=== PATIENT | male | born 1975 | race Hispanic/Latino ===

== ENCOUNTER 2019-01-16 04:55 | Emergency (ER) | payer BC ==
[2019-01-16] MEDS ORDERED: ACETAMINOPHEN 500 MG TAB ONE (06:29)
[2019-01-16] MEDS ORDERED: IBUPROFEN 200 MG TAB PO ONE (06:29)
[2019-01-16] MEDS ORDERED: IBUPROFEN 400 MG TAB ONE (06:29)
--- NOTE | 2019-01-16 07:14 | ER ---
Nurse's Notes [facility] Name: Jose Carlos Trammell Age: 43 yrs Sex: Male : 1975 Arrival Date: 01/16/2019 Time: 04:58 Bed 6 Private MD: Diagnosis: Acute Right Hip pain Presentation: 01/16 05:10 Presenting complaint: Patient states: 2 days ago while at work I pushed heavy objects rr5 and started to feel pain like a cramps to my right leg. it getting worse tonight. 05:10 Transition of care: patient was not received from another setting of care. Onset of rr5 symptoms was January 14, 2019. Risk Assessment: Do you want to hurt yourself or someone else? Patient reports no desire to harm self or others. Initial Sepsis Screen: Does the patient meet any 2 criteria? No. Patient's initial sepsis screen is negative. Does the patient have a suspected source of infection? No. Patient's initial sepsis screen is negative. Care prior to arrival: None. 05:10 Method Of Arrival: Ambulatory rr5 05:10 Acuity: EDILMA 4 rr5 Historical: - Allergies: 05:10 No Known Allergies; rr5 - Home Meds: 05:10 metformin 1,000 mg Oral tab 1 tab 2 times per day [Active]; rr5 - PMHx: 05:10 Diabetes - NIDDM; rr5 - PSHx: 05:10 None; rr5 - Immunization history:: Adult Immunizations up to date. - Social history:: Smoking status: Patient uses tobacco products, 3 sticks per day. - Ebola Screening: : Patient negative for fever greater than or equal to 101.5 degrees Fahrenheit, and additional compatible Ebola Virus Disease symptoms Patient denies exposure to infectious person Patient denies travel to an Ebola-affected area in the 21 days before illness onset. - Family history:: not pertinent. - Hospitalizations: : No recent hospitalization is reported. Screenin:10 Abuse screen: Denies threats or abuse. Denies injuries from another. Nutritional rr5 screening: No deficits noted. Tuberculosis screening: No symptoms or risk factors identified. Fall Risk None identified. Total Grewal Fall Scale indicates No Risk (0-24 pts). Assessment: 05:10 General: Appears in no apparent distress. comfortable, Behavior is calm, cooperative, rr5 appropriate for age. Pain: Complains of pain in right leg Pain does not radiate. Pain currently is 10 out of 10 on a pain scale. Quality of pain is described as crampy, Pain began gradually, Is intermittent. Neuro: Level of Consciousness is awake, alert, obeys commands, Oriented to person, place, time, situation, Appropriate for age. Cardiovascular: Capillary refill < 3 seconds Patient's skin is warm and dry. Respiratory: Airway is patent Respiratory effort is even, unlabored, Respiratory pattern is regular, symmetrical. GI: No signs and/or symptoms were reported involving the gastrointestinal system. : No signs and/or symptoms were reported regarding the genitourinary system. EENT: No signs and/or symptoms were reported regarding the EENT system. Derm: Skin is intact, Skin temperature is warm. Musculoskeletal: Circulation, motion, and sensation intact. Capillary refill < 3 seconds, Range of motion: intact in all extremities, Reports pain in right leg. 06:40 Reassessment: Patient appears in no apparent distress at this time. Patient is alert, rr5 oriented x 3, equal unlabored respirations, skin warm/dry/pink. asleep on bed comfortably. no complaints made awaiting for result. Vital Signs: 05:10 BP 129 / 83; Pulse 75; Resp 17; Temp 98.2; Pulse Ox 100% ; Weight 117.93 kg; Height 5 rr5 ft. 11 in. (180.34 cm); Pain 10/10; 06:30 BP 121 / 76; Pulse 70; Resp 17; Pulse Ox 99% on R/A; rr5 05:10 Body Mass Index 36.26 (117.93 kg, 180.34 cm) rr5 ED Course: 04:58 Patient arrived in ED. do 05:10 Arm band placed on. rr5 05:11 Oh Quintana, JEREMIAS is Primary Nurse. rr5 05:15 Triage completed. rr5 05:15 Patient has correct armband on for positive identification. Bed in low position. Call rr5 light in reach. 05:49 Miller Tran MD is Attending Physician. wa 06:34 X-ray completed. Patient tolerated procedure well. kw 06:48 Hip Right 2 View XRAY In Process Unspecified. EDMS 07:06 Primary Nurse role handed off by Oh Quintana, RN sg 07:06 Reveles, Joshua, RN is Primary Nurse. sg Administered Medications: 06:18 Drug: Motrin 600 mg Route: PO; rr5 07:08 Follow up: Response: No adverse reaction rr5 06:18 Drug: Tylenol 1000 mg Route: PO; rr5 07:08 Follow up: Response: No adverse reaction rr5 Outcome: 07:14 Discharge ordered by . [email or web address] 07:28 Patient left the ED. Signatures: Dispatcher [employer] EDMS Joshua Reveles RN RN sg Smirch, Shelby, RN RN Rosita Craft Danielle do Appiah, William, MD MD wa Roque, Raymond RN RN rr5
--- NOTE | 2019-01-16 07:15 | EDPHYS ---
Physician Documentation [facility] Name: Jose Carlos Trammell Age: 43 yrs Sex: Male : 1975 Arrival Date: 01/16/2019 Time: 04:58 Bed 6 Private MD: ED Physician Miller Tran HPI: 01/16 07:16 This 43 yrs old Male presents to ER via Ambulatory with complaints of Leg Pain.wa 07:16 The patient presents with pain, that is acute. The complaints affect the right hip. wa Context: The problem was sustained at work, resulted from tension while pulling a heavy object, the patient can fully bear weight, the patient is able to ambulate, with mild difficulty, Problem is a result from a previous injury: No. Onset: The symptoms/episode began/occurred 2 day(s) ago. Modifying factors: The symptoms are alleviated by nothing. the symptoms are aggravated by movement, weight bearing. Associated signs and symptoms: The patient has no apparent associated signs or symptoms. Treatment prior to arrival includes: no previous treatment. Severity of symptoms: At their worst the symptoms were moderate, in the emergency department the symptoms are unchanged. The patient has not experienced similar symptoms in the past. The patient has not recently seen a physician. Historical: - Allergies: 05:10 No Known Allergies; rr5 - Home Meds: 05:10 metformin 1,000 mg Oral tab 1 tab 2 times per day [Active]; rr5 - PMHx: 05:10 Diabetes - NIDDM; rr5 - PSHx: 05:10 None; rr5 - Immunization history:: Adult Immunizations up to date. - Social history:: Smoking status: Patient uses tobacco products, 3 sticks per day. - Ebola Screening: : Patient negative for fever greater than or equal to 101.5 degrees Fahrenheit, and additional compatible Ebola Virus Disease symptoms Patient denies exposure to infectious person Patient denies travel to an Ebola-affected area in the 21 days before illness onset. - Family history:: not pertinent. - Hospitalizations: : No recent hospitalization is reported. ROS: 07:17 Constitutional: Negative for fever, chills, and weight loss, Eyes: Negative for injury, wa pain, redness, and discharge, ENT: Negative for injury, pain, and discharge, Neck: Negative for injury, pain, and swelling, Cardiovascular: Negative for chest pain, palpitations, and edema, Respiratory: Negative for shortness of breath, cough, wheezing, and pleuritic chest pain, Abdomen/GI: Negative for abdominal pain, nausea, vomiting, diarrhea, and constipation, Back: Negative for injury and pain, : Negative for injury, bleeding, discharge, and swelling, Skin: Negative for injury, rash, and discoloration, Neuro: Negative for headache, weakness, numbness, tingling, and seizure, Psych: Negative for depression, anxiety, suicide ideation, homicidal ideation, and hallucinations. 07:17 MS/extremity: Positive for pain, tenderness, of the right hip. 07:17 All other systems are negative. Exam: 07:18 Constitutional: This is a well developed, well nourished patient who is awake, alert, wa and in no acute distress. Head/Face: Normocephalic, atraumatic. Eyes: Pupils equal round and reactive to light, extra-ocular motions intact. Lids and lashes normal. Conjunctiva and sclera are non-icteric and not injected. Cornea within normal limits. Periorbital areas with no swelling, redness, or edema. ENT: Nares patent. No nasal discharge, no septal abnormalities noted. Tympanic membranes are normal and external auditory canals are clear. Oropharynx with no redness, swelling, or masses, exudates, or evidence of obstruction, uvula midline. Mucous membranes moist. Neck: Trachea midline, no thyromegaly or masses palpated, and no cervical lymphadenopathy. Supple, full range of motion without nuchal rigidity, or vertebral point tenderness. No Meningismus. Chest/axilla: Normal chest wall appearance and motion. Nontender with no deformity. No lesions are appreciated. Cardiovascular: Regular rate and rhythm with a normal S1 and S2. No gallops, murmurs, or rubs. Normal PMI, no JVD. No pulse deficits. Respiratory: Lungs have equal breath sounds bilaterally, clear to auscultation and percussion. No rales, rhonchi or wheezes noted. No increased work of breathing, no retractions or nasal flaring. Abdomen/GI: Soft, non-tender, with normal bowel sounds. No distension or tympany. No guarding or rebound. No evidence of tenderness throughout. Back: No spinal tenderness. No costovertebral tenderness. Full range of motion. Skin: Warm, dry with normal turgor. Normal color with no rashes, no lesions, and no evidence of cellulitis. Neuro: Awake and alert, GCS 15, oriented to person, place, time, and situation. Cranial nerves II-XII grossly intact. Motor strength 5/5 in all extremities. Sensory grossly intact. Cerebellar exam normal. Normal gait. Psych: Awake, alert, with orientation to person, place and time. Behavior, mood, and affect are within normal limits. 07:18 Musculoskeletal/extremity: Extremities: grossly normal except: noted in the right hip: pain, tenderness, tenderness. 07:19 Musculoskeletal/extremity: SLR negative. ma Vital Signs: 05:10 BP 129 / 83; Pulse 75; Resp 17; Temp 98.2; Pulse Ox 100% ; Weight 117.93 kg; Height 5 rr5 ft. 11 in. (180.34 cm); Pain 10/10; 06:30 BP 121 / 76; Pulse 70; Resp 17; Pulse Ox 99% on R/A; rr5 05:10 Body Mass Index 36.26 (117.93 kg, 180.34 cm) rr5 MDM: 05:49 Patient medically screened. ma 07:18 Differential diagnosis: contusion, tendonitis. Data reviewed: vital signs, nurses wa notes. Test interpretation: by ED physician or midlevel provider: noted mild DJD on R hip Xray. 01/16 06:09 Order name: Hip Right 2 View XRAY ma Administered Medications: 06:18 Drug: Motrin 600 mg Route: PO; rr5 07:08 Follow up: Response: No adverse reaction rr5 06:18 Drug: Tylenol 1000 mg Route: PO; rr5 07:08 Follow up: Response: No adverse reaction rr5 Disposition: 01/16/19 07:14 Discharged to Home. Impression: Acute Right Hip pain. - Condition is Stable. - Prescriptions for Ibuprofen 600 mg Oral Tablet - take 1 tablet by ORAL route every 8 hours As needed take with food; 30 tablet. Valium 5 mg Oral Tablet - take 1 tablet by ORAL route At bedtime As needed; 3 tablet. - Work release form, Medication Reconciliation Form, Thank You Letter, Antibiotic Education, Prescription Opioid Use form. - Follow up: Private Physician; When: 2 - 3 days; Reason: Recheck today's complaints. - Problem is new. - Symptoms have improved. - Notes: gtake medication as prescribed. follow up iwth your doctor Signatures: Dispatcher [employer] Neeta Mcdaniel RN RN ss Miller Tran MD MD wa Roque, Raymond RN RN rr5 Corrections: (The following items were deleted from the chart) 07:28 07:14 01/16/2019 07:14 Discharged to Home. Impression: Acute Right Hip pain. Condition ss is Stable. Forms are Medication Reconciliation Form, Thank You Letter, Antibiotic Education, Prescription Opioid Use. Follow up: Private Physician; When: 2 - 3 days; Reason: Recheck today's complaints. Problem is new. Symptoms have improved. wa
[2019-01-16 07:43] VITALS: TEMP 98.2
[2019-01-16 07:44] VITALS: BP 121/76; O2SAT 99
--- NOTE | 2019-01-16 08:48 | RAD REPORT ---
EXAM DESCRIPTION: RAD - Hip Right 2 View - 01/16/2019 6:47 am CLINICAL HISTORY: PAIN COMPARISON: No comparisons FINDINGS: Mild osteoarthritis affects the right hip. No fracture, dislocation or AVN.
== END 2019-01-16 07:28 | disposition home or self-care (01) ==
LOC: ER 04:55
DX: M25.551 Pain in right hip (principal); E11.9 Type 2 diabetes mellitus without complications; Z72.0 Tobacco use
CPT/HCPCS: 99283

== ENCOUNTER 2021-06-30 09:44 | Emergency (ER) | payer BC, SELFPAY ==
[2021-06-30] MEDS ORDERED: NA CHLORIDE 0.9% 1,000 ML ONE (10:50)
[2021-06-30] MEDS ORDERED: KETOROLAC 30 MG/ML INJ ONE (10:50)
[2021-06-30 11:03] LABS: Absolute Lymphocytes (CBC) 3.1 K/uL (0.7-4.9); Basophils % 0.4 % (0-1.3); Hematocrit 44.7 % (39.6-49.0); Lymphocytes % 35.1 % (15.3-44.8); MPV 9.9 fL (7.6-11.3); RBC Red Blood Cell Count 5.03 M/uL (4.33-5.43)
--- NOTE | 2021-06-30 11:05 | RAD REPORT ---
EXAM DESCRIPTION: CTAbdomen Pelvis W Contrast - 06/30/2021 10:49 am CLINICAL HISTORY: Abdominal pain. ABD PAIN COMPARISON: No comparisons TECHNIQUE: Biphasic CT imaging of the abdomen and pelvis was performed with 100 ml non-ionic IV cont rast. All CT scans are performed using dose optimization technique as appropriate and may include automated exposure control or mA/KV adjustment according to patient size. FINDINGS: The lung bases are clear. The liver, spleen, pancreas, adrenal glands and kidneys are within normal limits. No bowel obstruction, free air, free fluid or abscess. The appendix is normal. No evidence of signi ficant lymphadenopathy. No suspicious bony findings. IMPRESSION: No acute intra-abdominal or pelvic finding.
[2021-06-30 11:11] LABS: ALT/SGPT 25 U/L (12-78); AST/SGOT 12 U/L (15-37); Albumin 3.3 g/dL (3.4-5.0); Alkaline Phosphatase 64 U/L (45-117); BUN Blood Urea Nitrogen 14 mg/dL (7-18); Bicarbonate 26 mmol/L (21-32); Bilirubin Direct 0.1 mg/dL (0-0.2); Bilirubin Total 0.4 mg/dL (0.2-1.0); Glucose Level 334 mg/dL (74-106); Lipase 95 U/L (73-393); Protein, Total 7.4 g/dL (6.4-8.2); Sodium Level 139 mmol/L (136-145)
--- NOTE | 2021-06-30 11:21 | RAD REPORT ---
EXAM DESCRIPTION: US - Abdomen Exam Limited - 06/30/2021 11:12 am CLINICAL HISTORY: ABD PAIN COMPARISON: Abdomen Pelvis W Contrast dated 06/30/2021 FINDINGS: The gallbladder is quite contracted and somewhat difficult to fully assess. Grossly no sto ne or wall thickening evident. The common bile duct is normal measuring 5 mm. The liver demonstrates mild fatty liver. IMPRESSION: Significant gallbladder contraction is present, limiting study. No cholecystitis findin gs. Mild fatty liver.
--- NOTE | 2021-06-30 11:39 | EDPHYS ---
Physician Documentation [facility] Name: Jose Carlos Tramemll Age: 46 yrs Sex: Male : 1975 Arrival Date: 06/30/2021 Time: 09:46 Bed 9 Private MD: Isatu Mayo ED Physician Wilbetr Hernandez HPI: 06/30 11:36 This 46 yrs old Male presents to ER via Ambulatory with complaints of kb Abdominal Pain, Chest Pain, Back Pain. 11:36 The patient presents with abdominal pain. Onset: The symptoms/episode began/occurred kb last night. The symptoms do not radiate. Associated signs and symptoms: none. The symptoms are described as constant. Modifying factors: The symptoms are alleviated by nothing, the symptoms are aggravated by nothing. Severity of pain: At its worst the pain was moderate in the emergency department the pain is unchanged. The patient has not experienced similar symptoms in the past. The patient has not recently seen a physician. RUQ pain that started at 0100 and LLQ pain that started 2 weeks ago. . Historical: - Allergies: 10:29 No Known Allergies; vg1 - Home Meds: 10:29 metformin 1,000 mg Oral tab 1 tab 2 times per day [Active]; vg1 - PMHx: 10:29 Diabetes - NIDDM; vg1 - Immunization history:: Client reports having NOT received the Covid vaccine. - Social history:: Smoking status: Patient reports the use of cigarette tobacco products, smokes two packs cigarettes per day. ROS: 11:36 Constitutional: Negative for fever, chills, and weight loss. kb 11:36 Abdomen/GI: Positive for abdominal pain, Negative for nausea, vomiting, and diarrhea. 11:36 All other systems are negative. Exam: 11:36 Constitutional: This is a well developed, well nourished patient who is awake, alert, kb and in no acute distress. Head/Face: Normocephalic, atraumatic. ENT: Moist Mucous membranes Respiratory: Respirations even and unlabored. No increased work of breathing. Talking in full sentences Skin: Warm, dry with normal turgor. Normal color. MS/ Extremity: Pulses equal, no cyanosis. Neurovascular intact. Full, normal range of motion. Neuro: Awake and alert, GCS 15, oriented to person, place, time, and situation. Moves all extremities. Normal gait. Psych: Awake, alert, with orientation to person, place and time. Behavior, mood, and affect are within normal limits. 11:36 Abdomen/GI: Inspection: abdomen appears normal, Bowel sounds: normal, Palpation: soft, in all quadrants, mild abdominal tenderness, in the right upper quadrant, moderate abdominal tenderness, in the left upper quadrant. Vital Signs: 10:26 BP 142 / 81; Pulse 85; Resp 18; Temp 98.1; Pulse Ox 100% ; Weight 108.86 kg; Height 5 vg1 ft. 11 in. (180.34 cm); Pain 10/10; 12:16 BP 139 / 76; Pulse 81; Resp 18; Pulse Ox 100% on R/A; ld1 10:26 Body Mass Index 33.47 (108.86 kg, 180.34 cm) vg1 MDM: 10:18 Patient medically screened. kb 11:26 Data reviewed: vital signs, nurses notes. Data interpreted: Pulse oximetry: on room air kb is 100 %. Interpretation: normal. Counseling: I had a detailed discussion with the patient and/or guardian regarding: the historical points, exam findings, and any diagnostic results supporting the discharge/admit diagnosis, lab results, radiology results, the need for outpatient follow up, a family practitioner, to return to the emergency department if symptoms worsen or persist or if there are any questions or concerns that arise at home. 06/30 10:18 Order name: Basic Metabolic Panel; Complete Time: 11:19 kb 06/30 10:18 Order name: CBC with Diff; Complete Time: 11:05 kb 06/30 10:18 Order name: US Abdomen Limited; Complete Time: 11:26 kb 06/30 10:18 Order name: Hepatic Function; Complete Time: 11:19 kb 06/30 10:18 Order name: Lipase; Complete Time: 11:19 kb 06/30 11:27 Order name: CREATININE WHOLE BLOOD; Complete Time: 11:28 EDMS 06/30 10:18 Order name: IV Saline Lock; Complete Time: 10:25 kb 06/30 10:18 Order name: Labs collected and sent; Complete Time: 10:25 kb 06/30 10:28 Order name: CT Abd/Pelvis - IV Contrast Only; Complete Time: 11:08 kb Administered Medications: 11:16 Drug: NS 0.9% 1000 ml Route: IV; Rate: 1000 ml; Site: right antecubital; iw 12:10 Follow up: IV Status: Completed infusion iw 11:16 Drug: Ketorolac 15 mg Route: IVP; Site: right antecubital; iw 11:30 Follow up: Response: No adverse reaction iw Disposition: 07/01 06:54 Co-signature as Attending Physician, Wilbert Hernandez MD I agree with the assessment and emilia plan of care. Disposition Summary: 06/30/21 11:38 Discharge Ordered Location: Home kb Condition: Stable kb Diagnosis - Upper abdominal pain, unspecified kb Followup: kb - With: Emergency Department - When: As needed - Reason: Worsening of condition Followup: kb - With: Private Physician - When: 2 - 3 days - Reason: Recheck today's complaints, Continuance of care, Re-evaluation by your physician Discharge Instructions: - Discharge Summary Sheet kb - Abdominal Pain, Adult, [id number] kb Forms: - Medication Reconciliation Form kb - Thank You Letter kb - Antibiotic Education kb - Prescription Opioid Use kb - Work release form bd Prescriptions: - Zofran 4 mg Oral Tablet - take 1 tablet by ORAL route every 6 hours As needed; 20 tablet; Refills: 0, kb Product Selection Permitted - Diclofenac Sodium 75 mg Oral tablet,delayed release (DR/EC) - take 1 tablet by ORAL route 2 times per day As needed; 30 tablet; Refills: 0, kb Product Selection Permitted Signatures: Dispatcher [employer] Noris Fuller, HOLLEY-C HOLLEY-Wilbert Hussein MD MD cha Williams, Irene, RN Sharlene John RN RN vg1
--- NOTE | 2021-06-30 11:39 | ER ---
Nurse's Notes [facility] Name: Jose Carlos Trammell Age: 46 yrs Sex: Male : 1975 Arrival Date: 06/30/2021 Time: 09:46 Bed 9 Private MD: Isatu Mayo Diagnosis: Upper abdominal pain, unspecified Presentation: 06/30 10:26 Chief complaint: Patient states: RUQ pain began today and LUQ pain began x 2 weeks ago. vg1 Denies NVD, states pain is sharp. Coronavirus screen: Vaccine status: Patient reports being unvaccinated. Ebola Screen: Patient negative for fever greater than or equal to 101.5 degrees Fahrenheit, and additional compatible Ebola Virus Disease symptoms. Initial Sepsis Screen: Does the patient meet any 2 criteria? No. Patient's initial sepsis screen is negative. Does the patient have a suspected source of infection? No. Patient's initial sepsis screen is negative. Risk Assessment: Do you want to hurt yourself or someone else? Patient reports no desire to harm self or others. Onset of symptoms was June 30, 2021. 10:26 Method Of Arrival: Ambulatory vg1 10:26 Acuity: EDILMA 3 vg1 Triage Assessment: 10:29 General: Appears in no apparent distress. uncomfortable, Behavior is calm, cooperative. vg1 Pain: Complains of pain in right upper quadrant and left upper quadrant Pain currently is 10 out of 10 on a pain scale. GI: Patient currently denies diarrhea, nausea, vomiting. Historical: - Allergies: 10:29 No Known Allergies; vg1 - Home Meds: 10: metformin 1,000 mg Oral tab 1 tab 2 times per day [Active]; vg1 - PMHx: 10:29 Diabetes - NIDDM; vg1 - Immunization history:: Client reports having NOT received the Covid vaccine. - Social history:: Smoking status: Patient reports the use of cigarette tobacco products, smokes two packs cigarettes per day. Screenin:08 Abuse screen: Denies threats or abuse. Denies injuries from another. Nutritional iw screening: No deficits noted. Tuberculosis screening: No symptoms or risk factors identified. Fall Risk None identified. Assessment: 10:45 General: Appears in no apparent distress. Behavior is calm, cooperative. Pain: iw Complains of pain in left upper quadrant and right upper quadrant. Neuro: Level of Consciousness is awake, alert, obeys commands, Oriented to person, place, time, situation, Moves all extremities. Full function. Cardiovascular: Patient's skin is warm and dry. Respiratory: Respiratory effort is even, unlabored, Respiratory pattern is regular, symmetrical. GI: Bowel sounds present X 4 quads. Abd is soft X 4 quads Reports upper abdominal pain, nausea. Derm: Skin is intact, is healthy with good turgor. Musculoskeletal: Range of motion: intact in all extremities. 12:16 Reassessment: Patient appears in no apparent distress at this time. No changes from ld1 previously documented assessment. Patient and/or family updated on plan of care and expected duration. Pain level reassessed. Patient is alert, oriented x 3, equal unlabored respirations, skin warm/dry/pink. Vital Signs: 10:26 BP 142 / 81; Pulse 85; Resp 18; Temp 98.1; Pulse Ox 100% ; Weight 108.86 kg; Height 5 vg1 ft. 11 in. (180.34 cm); Pain 10/10; 12:16 BP 139 / 76; Pulse 81; Resp 18; Pulse Ox 100% on R/A; ld1 10:26 Body Mass Index 33.47 (108.86 kg, 180.34 cm) vg1 ED Course: 09:46 Patient arrived in ED. am2 09:46 Isatu Mayo is Private Physician. am2 10:18 Noris Coreas FNP-C is PSYCHIATRICP. kb 10:18 Wilbert Hernandez MD is Attending Physician. kb 10:25 Initial lab(s) drawn, by ED staff, sent to lab. Inserted saline lock: 20 gauge in right vg1 antecubital area, using aseptic technique. ,using aseptic technique. completed by Beatrice BROWN. 10:28 Otilia Garcia, RN is Primary Nurse. iw 10:29 Triage completed. vg1 10:29 Arm band placed on. vg1 10:49 CT Abd/Pelvis - IV Contrast Only In Process Unspecified. EDMS 11:12 US Abdomen Limited In Process Unspecified. EDMS 12:17 No provider procedures requiring assistance completed. IV discontinued, intact, ld1 bleeding controlled, No redness/swelling at site. 12:17 Patient has correct armband on for positive identification. Placed in gown. Bed in low ld1 position. Call light in reach. Side rails up X2. Pulse ox on. NIBP on. Door closed. Noise minimized. Warm blanket given. Administered Medications: 11:16 Drug: NS 0.9% 1000 ml Route: IV; Rate: 1000 ml; Site: right antecubital; iw 12:10 Follow up: IV Status: Completed infusion iw 11:16 Drug: Ketorolac 15 mg Route: IVP; Site: right antecubital; iw 11:30 Follow up: Response: No adverse reaction iw Outcome: 11:38 Discharge ordered by MD. bowser 12:17 Discharged to home ambulatory. ld1 12:17 Condition: stable 12:17 Discharge instructions given to patient, Instructed on discharge instructions, follow up and referral plans. medication usage, Demonstrated understanding of instructions, follow-up care, medications, Prescriptions given X 2. 12:17 Patient left the ED. ld1 Signatures: Dispatcher [employer] EDMS Noris Coreas, HOLLEY-Reggie BABB-Otilia Flannery RN RN Charley Camara am2 Sharlene Mesa, RN RN vg1 Mayda Castro RN RN ld1
[2021-06-30 12:26] VITALS: TEMP 98.1; O2SAT 100
[2021-06-30 12:28] VITALS: BP 139/76
== END 2021-06-30 12:17 | disposition home or self-care (01) ==
LOC: ER 09:44
DX: R10.11 Right upper quadrant pain (principal); E11.9 Type 2 diabetes mellitus without complications; F17.210 Nicotine dependence, cigarettes, uncomplicated
CPT/HCPCS: 36415; 74177; 76705; 80048; 80076; 82565; 83690; 85025; 96361; 96374; 99284; J7030; Q9967

== ENCOUNTER 2023-03-21 13:20 | Emergency (ER) | payer OTHER, SELFPAY ==
--- OUTSIDE RECORDS SUMMARY | 2023-03-21 13:23 | XMS REPORT | Continuity of Care Document ---
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 Allergies, Adverse Reactions, Alerts This patient has no known allergies or adverse reactions. Medications This patient has no known medications. Procedures This patient has no known procedures. Encounters Start End Encounter Admission Attending Care Care Encounter Source Date/Time Date/Time Type Type Clinicians Facility Department ID 2023-03-18 2023-03-18 Outpatient KISHA HENRY [id number] Kisha 10:00:00 10:00:00 TONI Seybol d 2023-03-09 2023-03-09 Outpatient KISHA HENRY [id number] Kisha 00:00:00 00:00:00 TONI Seybol d 2023-03-08 2023-03-08 Outpatient LAB90 KISHA BEARD [id number] Kisha 11:10:00 11:10:00 Seybol d 2023-03-08 2023-03-08 Outpatient KISHA HENRY [id number] Kisha 10:00:00 10:00:00 TONI Seybol d 2023-03-04 2023-03-04 Outpatient KISHA HENRY [id number] Kisha 16:30:00 16:30:00 TONI Seybol d 2023-03-04 2023-03-04 Outpatient KISHA HENRY [id number] Kisha 14:30:00 14:30:00 TONI francois Results This patient has no known results.
--- NOTE | 2023-03-21 13:56 | ER ---
Nurse's Notes [facility] Name: Jose Carlos Trammell Age: 47 yrs Sex: Male : 1975 Arrival Date: 03/21/2023 Time: 13:20 Bed 4 Private MD: Diagnosis: Cellulitis of head [any part, except face] Presentation: 03/21 13:35 Chief complaint: Patient states: that he had what he thought was a pimple to the back cm10 of his head and his popped it. Pt states that this morning he woke up and it is more red and swollen. Coronavirus screen: Vaccine status: Patient reports being unvaccinated. Ebola Screen: Patient denies travel to an Ebola-affected area in the 21 days before illness onset. No symptoms or risks identified at this time. Initial Sepsis Screen: Does the patient meet any 2 criteria? No. Patient's initial sepsis screen is negative. Does the patient have a suspected source of infection? No. Patient's initial sepsis screen is negative. Risk Assessment: Do you want to hurt yourself or someone else? Patient reports no desire to harm self or others. Onset of symptoms was March 21, 2023. 13:35 Method Of Arrival: Ambulatory cm10 13:35 Acuity: EDILMA 4 cm10 Historical: - Allergies: 13:36 No Known Allergies; cm10 - Home Meds: 13:36 metformin 1,000 mg Oral tab 1 tab 2 times per day [Active]; cm10 - PMHx: 13:36 Diabetes - NIDDM; cm10 - Immunization history:: Adult Immunizations unknown. - Social history:: Smoking status: Patient reports the use of cigarette tobacco products, smokes one-half pack cigarettes per day. Screenin:32 [facility] ED Fall Risk Assessment (Adult) History of falling in the last 3 months, ph including since admission No falls in past 3 months (0 pts) Confusion or Disorientation No (0 pts) Intoxicated or Sedated No (0 pts) Impaired Gait No (0 pts) Mobility Assist Device Used No (0 pt) Altered Elimination No (0 pt) Score/Fall Risk Level 0 - 2 = Low Risk Oriented to surroundings, Maintained a safe environment, Hourly rounding (assess needs \T\ fall precautionary measures) done. Abuse screen: Denies threats or abuse. Denies injuries from another. Nutritional screening: No deficits noted. Tuberculosis screening: No symptoms or risk factors identified. Assessment: 14:30 General: Appears in no apparent distress. comfortable, well groomed, Behavior is calm, ph cooperative, appropriate for age. Pain: Complains of pain in occipital area. Neuro: Level of Consciousness is awake, alert, obeys commands, Oriented to person, place, time, situation. Cardiovascular: Capillary refill < 3 seconds in bilateral fingers Patient's skin is warm and dry. Respiratory: Airway is patent Respiratory effort is even, unlabored, Respiratory pattern is regular, symmetrical. Derm: Abscess located on occipital area is nickel sized. Vital Signs: 13:34 BP 117 / 68; Pulse 73; Resp 16 S; Temp 98(TE); Pulse Ox 97% on R/A; Weight 111.13 kg; cm10 Height 5 ft. 11 in. ; Pain 7/10; 13:34 Body Mass Index 34.17 (111.13 kg, 180.34 cm) cm10 13:34 Pain Scale: Adult cm10 ED Course: 13:23 Patient arrived in ED. rg4 13:27 Wilbert Staley PA is PHCP. cp 13:27 Wilbert Hernandez MD is Attending Physician. cp 13:36 Triage completed. cm10 13:37 Arm band placed on Patient placed in an exam room, on a stretcher. cm10 14:19 Sari Bingham, RN is Primary Nurse. ph 14:31 Patient has correct armband on for positive identification. Bed in low position. Call ph light in reach. Side rails up X 1. Pulse ox on. NIBP on. 14:32 No provider procedures requiring assistance completed. Patient did not have IV access ph during this emergency room visit. Administered Medications: 14:30 Drug: Trimethoprim-Sulfamethoxazole PO (160 mg-800 mg (DS) 2 tabs Route: PO; ph 14:30 Follow up: Response: No adverse reaction ph 14:30 Drug: Doxycycline PO 200 mg Route: PO; ph 14:30 Follow up: Response: No adverse reaction ph Medication: 14:32 VIS not applicable for this client. ph Outcome: 13:56 Discharge ordered by . cp 14:32 Discharged to home ambulatory, with significant other. ph 14:32 Condition: good 14:32 Discharge instructions given to patient, significant other, Instructed on discharge instructions, follow up and referral plans. medication usage, Demonstrated understanding of instructions, follow-up care, medications, Prescriptions given X 2. 14:33 Patient left the ED. ph Signatures: Sari Bingham, RN RN ph Wilbert Staley PA PA cp Garcia, Rubi rg4 Aleida Wise RN RN cm10
--- NOTE | 2023-03-21 13:56 | EDPHYS ---
Physician Documentation [facility] Name: Jose Carlos Trammell Age: 47 yrs Sex: Male : 1975 Arrival Date: 03/21/2023 Time: 13:20 Bed 4 Private MD: ED Physician Wilbert Hernandez HPI: 03/21 14:00 This 47 yrs old Male presents to ER via Ambulatory with complaints of Abscess. cp 14:00 the patient presents with a swollen area of the occipital area. cp 14:00 Description: fluctuant, swollen. Onset: The symptoms/episode began/occurred gradually, cp and became worse this morning. Associated signs and symptoms: Pertinent negatives: discharge, drainage, fever. Severity of symptoms: in the emergency department the symptoms are unchanged, despite home interventions. Historical: - Allergies: 13:36 No Known Allergies; cm10 - Home Meds: 13:36 metformin 1,000 mg Oral tab 1 tab 2 times per day [Active]; cm10 - PMHx: 13:36 Diabetes - NIDDM; cm10 - Immunization history:: Adult Immunizations unknown. - Social history:: Smoking status: Patient reports the use of cigarette tobacco products, smokes one-half pack cigarettes per day. ROS: 14:05 Skin: Positive for erythema, swelling, of the occipital area. cp 14:05 Constitutional: Negative for body aches, chills, fever. cp 14:05 Cardiovascular: Negative for chest pain, palpitations. cp 14:05 Respiratory: Negative for cough, shortness of breath, wheezing. 14:05 Abdomen/GI: Negative for abdominal pain, nausea, vomiting, and diarrhea. 14:05 Neuro: Negative for altered mental status, headache, numbness, weakness. 14:05 All other systems are negative. Exam: 14:10 Constitutional: The patient appears in no acute distress, alert, awake, non-toxic, well cp developed, well nourished, obese. 14:10 Head/face: Noted is erythema, that is mild, swelling, that is mild, of the occipital cp area, tenderness, that is mild. 14:10 Eyes: Periorbital structures: appear normal, Conjunctiva: normal, no exudate, no injection, Sclera: no appreciated abnormality, Lids and lashes: appear normal, bilaterally. 14:10 ENT: External ear(s): are unremarkable, Nose: is normal, Mouth: Lips: moist, Oral mucosa: moist, Posterior pharynx: is normal, airway is patent, no erythema, no exudate. 14:10 Neck: ROM/movement: is normal, is supple, without pain, no range of motions limitations, no nuchal rigidity. 14:10 Chest/axilla: Inspection: normal. 14:10 Cardiovascular: Rate: normal, Rhythm: regular. 14:10 Respiratory: the patient does not display signs of respiratory distress, Respirations: normal, no use of accessory muscles, no retractions, labored breathing, is not present. 14:10 Skin: abscess, not appreciated. Vital Signs: 13:34 BP 117 / 68; Pulse 73; Resp 16 S; Temp 98(TE); Pulse Ox 97% on R/A; Weight 111.13 kg; cm10 Height 5 ft. 11 in. ; Pain 7/10; 13:34 Body Mass Index 34.17 (111.13 kg, 180.34 cm) cm10 13:34 Pain Scale: Adult cm10 MDM: 13:40 Patient medically screened. cp 13:55 Data reviewed: vital signs, nurses notes, and as a result, I will discharge patient. cp 13:55 Differential diagnosis: abscess, cellulitis, insect bite. Consideration of cp Admission/Observation Escalation of care including admission/observation considered. I considered the following discharge prescriptions or medication management in the emergency department Medications were administered in the Emergency Department. See MAR. Care significantly affected by the following chronic conditions: Diabetes. Counseling: I had a detailed discussion with the patient and/or guardian regarding the historical points, exam findings, and any diagnostic results supporting the discharge/admit diagnosis, to return to the emergency department if symptoms worsen or persist or if there are any questions or concerns that arise at home. Administered Medications: 14:30 Drug: Trimethoprim-Sulfamethoxazole PO (160 mg-800 mg (DS) 2 tabs Route: PO; ph 14:30 Follow up: Response: No adverse reaction ph 14:30 Drug: Doxycycline PO 200 mg Route: PO; ph 14:30 Follow up: Response: No adverse reaction ph Disposition Summary: 03/21/23 13:56 Discharge Ordered Location: Home cp Problem: new cp Symptoms: have improved cp Condition: Stable cp Diagnosis - Cellulitis of head [any part, except face] cp Followup: cp - With: Private Physician - When: 2 - 3 days - Reason: Worsening of condition Discharge Instructions: - Discharge Summary Sheet cp - Cellulitis, Adult cp Forms: - Medication Reconciliation Form cp - Thank You Letter cp - Antibiotic Education cp - Prescription Opioid Use cp - Patient Portal Instructions cp - Leadership Thank You Letter cp Prescriptions: - Doxycycline Hyclate 100 mg Oral Tablet - take 1 tablet by ORAL route every 12 hours; 20 tablet; Refills: 0, Product cp Selection Permitted - Bactrim DS 800-160 mg Oral Tablet - take 1 tablet by ORAL route every 12 hours for 10 days; 20 tablet; Refills: 0, cp Product Selection Permitted Signatures: Sari Bingham RN RN Wilbert Staley PA PA cp Martinez, Clarissa RN RN cm10
[2023-03-21] MEDS ORDERED: SMZ./TMP. 800/160 MG TABLET ONE (14:33)
[2023-03-21] MEDS ORDERED: DOXYCYCLINE 100 MG CAP PO ONE (14:33)
[2023-03-21 14:38] VITALS: BP 117/68; TEMP 98; O2SAT 97
== END 2023-03-21 14:33 | disposition home or self-care (01) ==
LOC: ER 13:20
DX: L03.811 Cellulitis of head [any part, except face] (principal); F17.210 Nicotine dependence, cigarettes, uncomplicated; E11.9 Type 2 diabetes mellitus without complications
CPT/HCPCS: 99283

== ENCOUNTER 2024-03-14 18:55 | Emergency (ER) | payer OTHER ==
--- OUTSIDE RECORDS SUMMARY | 2024-03-14 18:58 | XMS REPORT | Continuity of Care Document ---
Author Name Unknown Address [address] [facility]. [address] thconnect Address [address] [facility]. 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 [place] 9 [id number] 2023 00:00:00 Social History Social Habit Start Date Stop Date Quantity Comments Source History of tobacco use Cigarette Smoker Brittany shannon - External Sexual orientation K medardo Brooks - External Alcohol intake 2023-06-01 00:00:00 2023-06-01 00:00:00 .29 /d Brittany Brooks - External History of Social function 2023-04-12 00:00:00 2023-04-12 00:00:00 Brittany Brooks - External Cigarettes smoked current (pack per day) - Reported 2023-03-08 00:00:00 2023-03-08 00:00:00 Brittany Brooks - External Tobacco use and exposure 2023-03-08 00:00:00 2023-03-08 00:00:00 Smokeless tobacco non-user Brittany Brooks - External Education - What is the highest level of school you have completed or the highest degree you have received? 2023-03-08 00:00:00 2023-03-08 00:00:00 High school graduate Brittany Seybold - External Alcohol Comment 2023-03-08 00:00:00 2023-03-08 00:00:00 socially Brittany Nagy Sex [birth year] At 1975 00:00:00 1975 00:00:00 Brittany Nagy Smoking Status Start Date Stop Date Source Smokes tobacco daily 2023-03-08 00:00:00 Brittany Nagy Medications Ordered Medication Name Filled Medication Name Start Date Stop Date Current Medication? Ordering Clinician Indication Dosage Frequency Signature (SIG) Comments Components Source Salamonia-3-aci d Ethyl Esters 1 g oral Capsule 2022-07 00:00: 00 Yes 1g Take 1 capsule (1 g total) by mouth 3 times daily. Brittany adams Metformin HCl 1000 MG oral Tablet 2022-07 00:00: 00 Yes [id number] 1000mg Take 1 tablet (1,000 mg total) by mouth in the morning and 1 tablet (1,000 mg total) in the evening. Take with meals. Brittany adams Trulicity 0.75 MG/0.5ML subcutaneou s Solution Pen-injecto r 2022-07 00:00: 00 Yes [id number] .75mg Inject 0.75 mg into the skin once a week. Brittany adams Insulin Glargine (Basaglar KwikPen) 100 UNIT/ML subcutaneou s Solution Pen-injecto r 2022-07 00:00: 00 Yes [id number] Inject 10 units once daily subcutaneo usly. Brittany adams Blood Glucose Monitoring Suppl (Blood Glucose Monitor System) w/Device does not apply Kit 2022-07 00:00: 00 Yes [id number] Check blood sugar before breakfast and at bedtime. Brittany adams Glucose Blood in vitro Strip 2022-07 00:00: 00 Yes [id number] 2{each} 2 each by other route 2 times daily. Brittany adams Salam[place] 3 1000 MG oral Capsule 16 00:00: 00 Yes [id number] 1{capsu le} Take 1 capsule by mouth 3 times daily Brittany adams Salam[place]-3-aci d Ethyl Esters 1 g oral Capsule 8-16 00:00: 00 Yes Brittany Todd adams Metformin HCl 1000 MG oral Tablet 8-14 00:00: 00 04-28 00:00 :00 No [id number] 1000mg Take 1 tablet (1,000 mg total) by mouth in the morning and 1 tablet (1,000 mg total) in the evening. Take with meals. Brittany adams Immunizations Ordered Immunization Name Filled Immunization Name Date Status Comments Source Tdap- (Boostrix, Adacel) Unknown Completed Brittany Perezold - External Tdap- (Boostrix, Adacel) Unknown Completed Brittany Brooks - External Vital Signs Vital Name Observation Time Observation Value Comments S ource Systolic blood pressure 2023-06-01 14:05:00 110 mm[Hg] Brittanylaura Perezo ld - External Diastolic blood pressure 2023-06-01 14:05:00 60 mm[Hg] Brittany Senoo ld - External Heart rate 2023-06-01 14:05:00 80 /min Logan Brooks - External Body temperature 2023-06-01 14:05:00 36.61 Shabnam Brittany Seybshiva - External Respiratory rate 2023-06-01 14:05:00 18 /min Brittanylaura Brooks - External Body height 2023-06-01 14:05:00 177.8 cm Annie manuel Seybold - External Body weight 2023-06-01 14:05:00 114.363 kg Annie manuel Seybold - External BMI 2023-06-01 14:05:00 36.18 kg/m2 Annie manuel Seybold - External Oxygen saturation in Arterial blood by Pulse oximetry 2023-06-01 14:05:00 97 /min Brittany Perezo ld - External Systolic blood pressure 2023-04-28 13:28:00 108 mm[Hg] Brittany Anao ld - External Diastolic blood pressure 2023-04-28 13:28:00 64 mm[Hg] Brittanylaura Perezo ld - External Heart rate 2023-04-28 13:28:00 78 /min Jason vera Seybold - External Body temperature 2023-04-28 13:28:00 36.61 Shabnam Brittany Brooks - External Respiratory rate 2023-04-28 13:28:00 20 /min Brittany Seodnaldo - External Body height 2023-04-28 13:28:00 177.8 cm Annie Brooks - External Body weight 2023-04-28 13:28:00 114.817 kg Annie Brooks - External BMI 2023-04-28 13:28:00 36.32 kg/m2 Annie Brooks - External Oxygen saturation in Arterial blood by Pulse oximetry 2023-04-28 13:28:00 98 /min Brittany Meredithkirby ld - External Encounters Start Date/Time End Date/Time Encounter Type Admission Type Attending [facility] Care Department Encounter ID Source 2024-03-02 00:00:00 2024-03-02 00:00:00 Outpatient MARLO DAN [id number] [facility]any [facility] 2023-09-12 00:00:00 2023-09-12 00:00:00 Outpatient TONI HENRY [id number] [facility] 2023-09-01 08:00:00 2023-09-01 08:00:00 Outpatient TONI HENRY [id number] Brittany [facility] 2023-08-20 00:00:00 2023-08-20 00:00:00 Outpatient TONI HENRY [id number] Brittany [facility] 2023-08-12 00:00:00 2023-08-12 00:00:00 Outpatient TONI HENRY [id number] Brittany [facility] 2023-06-09 00:00:00 2023-06-09 00:00:00 Outpatient TONI HENRY [id number] Brittany [facility] 2023-06-02 00:00:00 2023-06-02 00:00:00 Outpatient TONI HENRY [id number] Brittany [facility] 2023-06-01 08:45:00 2023-06-01 08:45:00 [facility] [id number] [facility] 08:00:00 2023-06-01 08:00:00 Outpatient TONI HENRY BRITTANY [id number] [facility] 2023-05-31 08:30:00 2023-05-31 08:30:00 Outpatient TONI HENRY BRITTANY [id number] [facility] 2023-05-10 00:00:00 2023-05-10 00:00:00 Outpatient TONI HENRY BRITTANY [id number] [facility] 2023-04-28 09:15:00 2023-04-28 09:15:00 Outpatient LAB90 BRITTANY BRITTANY [id number] [facility] 2023-04-28 08:30:00 2023-04-28 08:30:00 Outpatient TONI HENRY BRITTANY [id number] [facility] 2023-04-08 00:00:00 2023-04-08 00:00:00 Outpatient [facility]EN[facility] [id number] [facility] 2023-04-08 00:00:00 2023-04-08 00:00:00 Outpatient MARLO DAN BRITTANY BEARD [id number] [facility] 2023-03-18 10:00:00 2023-03-18 10:00:00 Outpatient TONI HENRY BRITTANY [id number] [facility] 2023-03-09 00:00:00 2023-03-09 00:00:00 Outpatient TONI HENRY BRITTANY [id number] [facility] 2023-03-08 11:10:00 2023-03-08 11:10:00 Outpatient LAB90 BRITTANY BRITTANY [id number] [facility] 2023-03-08 10:00:00 2023-03-08 10:00:00 Outpatient TONI HENRY BRITTANY BEARD [id number] [facility] 2023-03-04 16:30:00 2023-03-04 16:30:00 Outpatient TONI HENRY BRITTANY BEARD [id number] [facility] 2023-03-04 14:30:00 2023-03-04 14:30:00 Outpatient TONI HENRY [id number] Brittany Brooks
--- NOTE | 2024-03-14 19:13 | ER ---
Nurse's Notes [facility] Name: Jose Carlos Trammell Age: 48 yrs Sex: Male : 1975 Arrival Date: 03/14/2024 Time: 18:55 Bed IW1 Private MD: Diagnosis: Cellulitis of left lower limb Presentation: 03/14 19:03 Chief complaint: Patient states: QUARTER SIZE WOUND TO LEFT CALF NOTICED ON WEDNESDAY. db STATES HAS BEEN CLEANING WITH PEROXIDE AND ALCOHOL WOUND IS NOW RED AND GETTING BIGGER. STATES TOOK IBUPROFEN THIS AM. STATES STARTED A "BOIL" THEN POPPED ON CLOTHES. Coronavirus screen: Client denies travel out of the [place] in the last 14 days. At this time, the client does not indicate any symptoms associated with coronavirus-19. Ebola Screen: Patient negative for fever greater than or equal to 101.5 degrees Fahrenheit, and additional compatible Ebola Virus Disease symptoms Patient denies exposure to infectious person. Patient denies travel to an Ebola-affected area in the 21 days before illness onset. No symptoms or risks identified at this time. Initial Sepsis Screen: Does the patient meet any 2 criteria? No. Patient's initial sepsis screen is negative. Does the patient have a suspected source of infection? No. Patient's initial sepsis screen is negative. Risk Assessment: Do you want to hurt yourself or someone else? Patient reports no desire to harm self or others. Onset of symptoms was March 14, 2024. 19:03 Method Of Arrival: Ambulatory db 19:03 Acuity: EDILMA 3 db Triage Assessment: 19:05 General: Appears in no apparent distress. comfortable, Behavior is calm, cooperative. db Pain: Complains of pain in left leg. Neuro: Level of Consciousness is awake, alert, obeys commands, Oriented to person, place, time, situation. Derm: Wound noted left leg. 19:06 Respiratory: Airway is patent Respiratory effort is even, unlabored, Respiratory db pattern is regular, symmetrical. Historical: - Allergies: 19:05 No Known Allergies; db - Home Meds: 19:08 metformin 1 Oral tab 1 tab 2 times per day [Active]; Ozempic subcutaneous [Active]; db - PMHx: 19:05 Diabetes - NIDDM; db - Immunization history:: Adult Immunizations unknown. - Infectious Disease History:: Denies. - Social history:: Smoking status: Patient/guardian denies using tobacco, Stopped _ months ago 6. Screenin:33 [facility] ED Fall Risk Assessment (Adult) History of falling in the last 3 months, tm6 including since admission No falls in past 3 months (0 pts) Confusion or Disorientation No (0 pts) Intoxicated or Sedated No (0 pts) Impaired Gait No (0 pts) Mobility Assist Device Used No (0 pt) Altered Elimination No (0 pt) Score/Fall Risk Level 0 - 2 = Low Risk Oriented to surroundings, Maintained a safe environment, Educated pt \\T\\ family on fall prevention, incl call for assistance when getting out of bed. Abuse screen: Denies threats or abuse. Denies injuries from another. Nutritional screening: No deficits noted. Tuberculosis screening: No symptoms or risk factors identified. Vital Signs: 19:03 BP 123 / 66; Pulse 87; Resp 16; Temp 98; Pulse Ox 96% ; Weight 111.13 kg; Height 5 ft. db 11 in. ; Pain 8/10; 19:32 BP 137 / 75; Pulse 80; Resp 19; Temp 98; Pulse Ox 95% on R/A; Pain 0/10; tm6 19:03 Body Mass Index 34.17 (111.13 kg, 180.34 cm) db 19:03 Pain Scale: Adult db 19:32 Pain Scale: Adult tm6 ED Course: 18:58 Patient arrived in ED. im 18:59 Hugo Engel MD is Attending Physician. ec2 19:05 Triage completed. db 19:06 Arm band placed on right wrist. Patient placed in waiting room. db 19:33 Patient has correct armband on for positive identification. Provided Education on: tm6 PRESCRIPTION MEDS. 19:33 No provider procedures requiring assistance completed. Patient did not have IV access tm6 during this emergency room visit. Administered Medications: 19:32 Drug: Trimethoprim-Sulfamethoxazole PO (160 mg-800 mg (DS) 1 tablet PO once Route: PO; tm6 19:32 Follow up: Response: Medication administered at discharge. tm6 Medication: 19:33 VIS not applicable for this client. tm6 Outcome: 19:12 Discharge ordered by . ec2 19:33 Discharged to home ambulatory, tm6 19:33 Condition: stable 19:33 Discharge instructions given to patient, Instructed on discharge instructions, follow up and referral plans. medication usage, Demonstrated understanding of instructions, follow-up care, medications, Prescriptions given X 1, 19:34 Patient left the ED. tm6 Signatures: Sharron Raymond, RN RN Elise Paulino Edwin, MD MD ec2 Cheo Prakash RN RN tm6 Corrections: (The following items were deleted from the chart) 19:07 19:03 Chief complaint: Patient states: QUARTER SIZE WOUND TO LEFT CALF NOTICED ON db WEDNESDAY. STATES HAS BEEN CLEANING WITH PEROXIDE AND ALCOHOL WOUND IS NOW RED AND GETTING BIGGER. STATES TOOK IBUPROFEN THIS AM db
--- NOTE | 2024-03-14 19:13 | EDPHYS ---
Physician Documentation [facility] Name: Jose Carlos Trammell Age: 48 yrs Sex: Male : 1975 Arrival Date: 03/14/2024 Time: 18:55 Bed IW1 Private MD: ED Physician Hugo Engel HPI: 03/14 19:15 This 48 yrs old Male presents to ER via Ambulatory with complaints of Wound ec2 Check - leg pain. 19:15 Patient arrives today for evaluation of a wound to the left calf. States that he had a ec2 boil which subsequently had burst and now he has redness as well as drainage that is since resolved. No fevers or chills, no nausea or vomiting, does complain of some fatigue. History of diabetes. . Historical: - Allergies: 19:05 No Known Allergies; db - Home Meds: 19:08 metformin 1 Oral tab 1 tab 2 times per day [Active]; Ozempic subcutaneous [Active]; db - PMHx: 19:05 Diabetes - NIDDM; db - Immunization history:: Adult Immunizations unknown. - Infectious Disease History:: Denies. - Social history:: Smoking status: Patient/guardian denies using tobacco, Stopped _ months ago 6. ROS: 19:15 Constitutional: as per hpi ec2 Exam: 19:15 Constitutional: GEN: NAD Head: atraumatic Eyes: EOMI Ears: External ears are ec2 normal. CV: regular rate LUNGS: no respiratory distress ABD: non-distended SKIN: Ulcer noted to the left medial calf with surrounding erythema, no drainage, no fluctuance, no crepitus. MSK: no evidence of trauma Vital Signs: 19:03 BP 123 / 66; Pulse 87; Resp 16; Temp 98; Pulse Ox 96% ; Weight 111.13 kg; Height 5 ft. db 11 in. ; Pain 8/10; 19:32 BP 137 / 75; Pulse 80; Resp 19; Temp 98; Pulse Ox 95% on R/A; Pain 0/10; tm6 19:03 Body Mass Index 34.17 (111.13 kg, 180.34 cm) db 19:03 Pain Scale: Adult db 19:32 Pain Scale: Adult tm6 MDM: 19:12 Patient medically screened. ec2 19:15 Data reviewed: vital signs. ED course: Patient arrives today for evaluation of a wound. ec2 Examination remarkable for skin findings as above. Will treat for cellulitis. Patient otherwise without systemic signs and symptoms, will forego any lab work such as CBC or BMP. Considered processes such as abscesses, necrotizing fasciitis, cellulitis. Return precautions given. . Administered Medications: 19:32 Drug: Trimethoprim-Sulfamethoxazole PO (160 mg-800 mg (DS) 1 tablet PO once Route: PO; tm6 19:32 Follow up: Response: Medication administered at discharge. tm6 Disposition Summary: 03/14/24 19:12 Discharge Ordered Notes: Location: Home ec2 Condition: Stable ec2 Diagnosis - Cellulitis of left lower limb ec2 Followup: ec2 - With: Private Physician - When: - Reason: Re-evaluation by your physician Discharge Instructions: - Discharge Summary Sheet ec2 - Cellulitis, Adult ec2 Forms: - Medication Reconciliation Form ec2 - Antibiotic Education ec2 - Prescription Opioid Use ec2 - Patient Portal Instructions ec2 - Leadership Thank You Letter ec2 Prescriptions: - Bactrim DS 800-160 mg Oral Tablet - take 1 tablet ORAL route every 12 hours for 7 days; 14 tablet; Refills: 0, ec2 Product Selection Permitted Signatures: Sharron Raymond RN RN Hugo Engel MD MD 2 Cheo Prakash RN RN tm6
[2024-03-14] MEDS ORDERED: SMZ./TMP. 800/160 MG TABLET ONE (19:16)
[2024-03-14 20:06] VITALS: TEMP 98
[2024-03-14 20:08] VITALS: BP 137/75; O2SAT 95
== END 2024-03-14 19:34 | disposition home or self-care (01) ==
LOC: ER 18:55
DX: L03.116 Cellulitis of left lower limb (principal)

== ENCOUNTER 2024-05-10 11:14 | Emergency (ER) | payer SELFPAY ==
[2024-05-10 12:31] LABS: Absolute Eosinophils 0.3 K/uL (0-0.5); Absolute Lymphocytes (CBC) 1.9 K/uL (0.7-4.9); Absolute Monocytes 0.8 K/uL (0.1-1.3); Absolute Neutrophil 6.4 K/uL (1.8-8.0); Basophils % 0.5 % (0-1.3); Eosinophils % 3.3 % (0-4.4); Hematocrit 45.3 % (39.6-49.0); Hemoglobin 15.1 g/dL (13.6-17.9); Lymphocytes % 20.5 % (15.3-44.8); MCH 30.2 pg (27.0-35.0); MCHC 33.4 g/dL (32.0-36.0); MCV 90.4 fL (80-100); MPV 9.5 fL (7.6-11.3); Neutrophils % 67.7 % (41.7-73.7); Platelets 226 thou/uL (152-406); RBC Red Blood Cell Count 5.01 M/uL (4.33-5.43); Red Cell Distribution Width 13.1 % (12.1-15.2)
[2024-05-10 12:49] LABS: ALT/SGPT 23 U/L (16-61); Albumin 3.4 g/dL (3.4-5.0); Albumin/Globulin Ratio 0.8 (1.1-1.8); Alkaline Phosphatase 60 U/L (45-117); BUN Blood Urea Nitrogen 14 mg/dL (7-18); Bicarbonate 25 mEq/L (21-32); Bilirubin Total 0.6 mg/dL (0.2-1.0); Globulin 4.1 g/dL (2.3-3.5); Glomerular Filtration Rate 116 ml/min (=/>90); Glucose Level 282 mg/dL (74-106); Lipase 27 U/L (13-75); Protein, Total 7.5 g/dL (6.4-8.2); Sodium Level 135 mEq/L (136-145)
[2024-05-10 12:50] LABS: AST/SGOT < 10 U/L (15-37)
--- NOTE | 2024-05-10 13:45 | RAD REPORT ---
EXAMINATION: CT ABDOMEN AND PELVIS WITH CONTRAST CLINICAL INDICATION: RUQ pain, perineal abscess TECHNIQUE: CT abdomen and pelvis was performed, after the administration of IV contrast, as per [facility] protocol. Axial, sagittal and coronal reconstructions were obtained. One or more of the following dose reduction techniques were used: Automated exposure control, adjustment of the mA and k V according to patient size, and iterative reconstruction. Unless otherwise specified, incidental findings do not require dedicated imaging follow-up. COMPARISON: 06/30/2021 FINDINGS: LOWER CHEST: The visualized lung bases are clear. LIVER: Significant fatty liver with hepatomegaly present. No focal lesion or biliary dilitation. Beau ssly unremarkable gallbladder. SPLEEN: Normal size. No focal lesion. PANCREAS: No mass, ductal dilation, or navdeep-pancreatic fluid. ADRENALS: Normal; no mass. KIDNEYS: Normal size and contour. No hydronephrosis. GASTROINTESTINAL TRACT: No evidence of free air, significant intra-abdominal free fluid, bowel obstru ction or abscess. APPENDIX: Normal appendix. LYMPH NODES: No lymphadenopathy. MUSCULOSKELETAL: No acute or suspicious osseous abnormality. ADDITIONAL FINDINGS: Focal 31 x 23 mm abscess suspected along the right perineum. This does not appea r to be a perirectal abscess. IMPRESSION: Focal 31 x 23 mm subcutaneous abscess right perineum. Prominent fatty liver.
[2024-05-10] MEDS ORDERED: MORPHINE 4 MG/ML SYR ONE (14:01)
[2024-05-10] MEDS ORDERED: ONDANSETRON 4 MG/2 ML VIAL ONE (14:01)
[2024-05-10] MEDS ORDERED: LIDOCAINE 1% 20 ML MDV ONE (14:01)
--- NOTE | 2024-05-10 14:54 | EDPHYS ---
Physician Documentation [facility] Name: Jose Carlos Trammell Age: 48 yrs Sex: Male : 1975 Arrival Date: 05/10/2024 Time: 11:14 Bed 15 Private MD: ED Physician Onesimo Reina HPI: 05/10 17:20 This 48 yrs old Male presents to ER via Ambulatory with complaints of Rectal rt Abscess. 17:20 Patient presents to the ED with reported abscess between the scrotum and the anus for rt about 3 days, states that is worsening. Denies any drainage from the area. Denies any internal pain, does report an intermittent right upper quadrant pain for about a month but denies other abdominal pain. Denies other acute complaints at this time, symptoms are moderate in severity, no other aggravating or alleviating factors.. Historical: - Allergies: 11:38 No Known Allergies; ll1 - PMHx: 11:38 Diabetes - NIDDM; ll1 - PSHx: 11:38 None; ll1 - Immunization history:: Adult Immunizations up to date. - Social history:: Smoking status: Reported history of juuling and/or vaping. Patient/guardian denies using tobacco, Stopped _ months ago 7. - Family history:: not pertinent. ROS: 17:20 Constitutional: Negative for fever, chills, and weight loss, Cardiovascular: Negative rt for chest pain, palpitations, and edema, Respiratory: Negative for shortness of breath, cough, wheezing, and pleuritic chest pain, MS/Extremity: Negative for injury and deformity, Skin: Negative for injury, rash, and discoloration, Neuro: Negative for headache, weakness, numbness, tingling, and seizure, 17:20 Abdomen/GI: Positive for abdominal pain, Negative for nausea and vomiting, 17:20 : Positive for Abscess, negative for testicular pain, Exam: 17:20 Constitutional: This is a well developed, well nourished patient who is awake, alert, rt and in no acute distress. Head/Face: Normocephalic, atraumatic. Chest/axilla: Normal chest wall appearance and motion. Nontender with no deformity. No lesions are appreciated. Cardiovascular: Regular rate and rhythm with a normal S1 and S2. No gallops, murmurs, or rubs. Normal PMI, no JVD. No pulse deficits. Respiratory: Lungs have equal breath sounds bilaterally, clear to auscultation and percussion. No rales, rhonchi or wheezes noted. No increased work of breathing, no retractions or nasal flaring. MS/ Extremity: Pulses equal, no cyanosis. Neurovascular intact. Full, normal range of motion. Neuro: Awake and alert, GCS 15, oriented to person, place, time, and situation. Cranial nerves II-XII grossly intact. Motor strength 5/5 in all extremities. Sensory grossly intact. Cerebellar exam normal. Normal gait. 17:20 Abdomen/GI: 17:20 Abdomen/GI: Mild tenderness to the right upper quadrant without rebound, guarding, distention, 17:20 : Abscess, likely cutaneous noted in between the scrotum and the anus, right of center. No crepitus felt, no testicular, scrotal swelling, Vital Signs: 11:36 BP 134 / 85; Pulse 78; Resp 17; Temp 98.3; Pulse Ox 97% ; Weight 113.4 kg; Height 5 ft. ll1 11 in. ; Pain 8/10; 12:30 BP 128 / 59; Pulse 71; Resp 16; Pulse Ox 96% on R/A; cm10 13:55 BP 134 / 74; Pulse 65; Resp 16; Pulse Ox 97% on R/A; cm10 14:30 BP 123 / 71; Pulse 69; Resp 16; Pulse Ox 97% on R/A; cm10 11:36 Body Mass Index 34.87 (113.40 kg, 180.34 cm) ll1 11:36 Pain Scale: Adult ll1 Procedures: 17:20 I \T\ D: Incision and drainage was performed for an abscess of the Perineum Prepped with rt alcohol, Anesthetized with 1 ml's 1% Lidocaine. Incised with #11 blade. Drained moderate amount purulent fluid. Dressing: sterile 4x4 gauze, the patient tolerated the procedure well. MDM: 11:39 Medical Screening Exam initiated rt 17:20 Differential diagnosis: Abscess, Lilia's gangrene. Data reviewed: vital signs, rt nurses notes, lab test result(s), radiologic studies. I considered the following discharge prescriptions or medication management in the emergency department Medications were administered in the Emergency Department. See MAR. Independent interpretation of the following test(s) in the Emergency Department CT Scan: My interpretation is Cutaneous abscess seen on interpretation of CT scan images, no cholelithiasis. Care significantly affected by the following chronic conditions: Diabetes. Counseling: I had a detailed discussion with the patient and/or guardian regarding the historical points, exam findings, and any diagnostic results supporting the discharge/admit diagnosis, lab results, radiology results, the need for outpatient follow up, to return to the emergency department if symptoms worsen or persist or if there are any questions or concerns that arise at home. 05/10 11:44 Order name: CBC with Diff; Complete Time: 12:54 rt 05/10 11:44 Order name: CMP; Complete Time: 12:54 rt 05/10 11:44 Order name: Lipase; Complete Time: 12:54 rt 05/10 11:44 Order name: CT Abd/Pelvis - IV Contrast Only; Complete Time: 13:48 rt 05/10 11:44 Order name: IV Saline Lock; Complete Time: 12:18 rt 05/10 11:44 Order name: Labs collected and sent; Complete Time: 12:18 rt 05/10 13:57 Order name: I\T\D Setup; Complete Time: 14:10 rt Administered Medications: 14:10 Drug: Ondansetron IVP 4 mg IVP once; over 2 minutes Route: IVP; Site: left antecubital; cm10 14:52 Follow up: Response: No adverse reaction cm10 14:11 Drug: morphine IVP or IV 4 mg IVP once over 4 mins Route: IVP; Infused Over: 4 mins; cm10 Site: left antecubital; 14:52 Follow up: Response: No adverse reaction cm10 14:54 Drug: Lidocaine Infiltration (1 %) 5 ml 5 ml Infiltration once; to bedside {Note: Given cm10 by provider..} Volume: 5 ml; Route: Infiltration; Disposition Summary: 05/10/24 14:54 Discharge Ordered Notes: Location: Home rt Problem: new rt Symptoms: have improved rt Condition: Stable rt Diagnosis - Cutaneous abscess to perineum rt Followup: rt - With: Private Physician - When: Tomorrow - Reason: Discharge Instructions: - Discharge Summary Sheet rt - Skin Abscess rt Forms: - Work release form ph - Medication Reconciliation Form rt - Antibiotic Education rt - Prescription Opioid Use rt - Patient Portal Instructions rt - Leadership Thank You Letter rt Prescriptions: - Doxycycline Monohydrate 100 mg Oral Tablet - take 1 tablet ORAL route every 12 hours for 10 days; 20 tablet; Refills: 0, rt Product Selection Permitted Signatures: Dispatcher [employer] Pedro Foreman, RN RN ll1 Onesimo Reina MD MD rt Aleida Wise RN RN cm10 Corrections: (The following items were deleted from the chart) 11:51 11:51 CBC+H.LAB.BRZ ordered. EDMS EDMS 11:51 11:51 COMPREHENSIVE METABOLIC PANEL+C.LAB.BRZ ordered. EDMS EDMS 11:51 11:51 LIPASE+C.LAB.BRZ ordered. EDMS EDMS
--- NOTE | 2024-05-10 14:54 | ER ---
Nurse's Notes [facility] Name: Jose Carlos Trammell Age: 48 yrs Sex: Male : 1975 Arrival Date: 05/10/2024 Time: 11:14 Bed 15 Private MD: Diagnosis: Cutaneous abscess to perineum Presentation: 05/10 11:36 Chief complaint:. Chief complaint: Patient states: 1. Abscess to perineum area for 3 ll1 days. No drainage. States its getting bigger each day 2. RUQ abdominal pain off/on for 1 month. Coronavirus screen: Client denies travel out of the [place] in the last 14 days. At this time, the client does not indicate any symptoms associated with coronavirus-19. Ebola Screen: Patient denies travel to an Ebola-affected area in the 21 days before illness onset. Initial Sepsis Screen: Does the patient meet any 2 criteria? No. Patient's initial sepsis screen is negative. Does the patient have a suspected source of infection? No. Patient's initial sepsis screen is negative. Risk Assessment: Do you want to hurt yourself or someone else? Patient reports no desire to harm self or others. Onset of symptoms was April 10, 2024. 11:36 Method Of Arrival: Ambulatory ll1 11:36 Acuity: EDILMA 3 ll1 Triage Assessment: 11:41 General: Appears in no apparent distress. Behavior is calm, cooperative, appropriate ll1 for age. Pain: Complains of pain in perineum Quality of pain is described as aching, Pain began. Derm: Abscess located on perineum is nickel sized, has no drainage, is hot to touch, is red, is raised. 11:41 GI: Reports upper abdominal pain. ll1 Historical: - Allergies: 11:38 No Known Allergies; ll1 - PMHx: 11:38 Diabetes - NIDDM; ll1 - PSHx: 11:38 None; ll1 - Immunization history:: Adult Immunizations up to date. - Social history:: Smoking status: Reported history of juuling and/or vaping. Patient/guardian denies using tobacco, Stopped _ months ago 7. - Family history:: not pertinent. Screenin:31 [facility] ED Fall Risk Assessment (Adult) History of falling in the last 3 months, cm10 including since admission No falls in past 3 months (0 pts) Confusion or Disorientation Yes (5 pts) Intoxicated or Sedated No (0 pts) Impaired Gait No (0 pts) Mobility Assist Device Used No (0 pt) Altered Elimination No (0 pt) Score/Fall Risk Level 0 - 2 = Low Risk Oriented to surroundings, Maintained a safe environment, Hourly rounding (assess needs \T\ fall precautionary measures) done. Abuse screen: Denies threats or abuse. Denies injuries from another. Nutritional screening: No deficits noted. Tuberculosis screening: No symptoms or risk factors identified. Assessment: 12:30 General: Appears in no apparent distress. comfortable, Behavior is calm, cooperative, cm10 appropriate for age. Pain: Complains of pain in right upper quadrant Pain currently is 8 out of 10 on a pain scale. Pain began 1 month ago. Neuro: No deficits noted. Level of Consciousness is awake, alert, obeys commands, Oriented to person, place, time, situation, Appropriate for age. Respiratory: No deficits noted. Airway is patent Respiratory effort is even, unlabored, Respiratory pattern is regular, symmetrical. GI: Reports upper abdominal pain. Derm: Abscess located on buttocks. 15:14 Reassessment: Patient appears in no apparent distress at this time. Patient and/or jb4 family updated on plan of care and expected duration. Pain level reassessed. Patient is alert, oriented x 3, equal unlabored respirations, skin warm/dry/pink. dressing applied to wound. Vital Signs: 11:36 BP 134 / 85; Pulse 78; Resp 17; Temp 98.3; Pulse Ox 97% ; Weight 113.4 kg; Height 5 ft. ll1 11 in. ; Pain 8/10; 12:30 BP 128 / 59; Pulse 71; Resp 16; Pulse Ox 96% on R/A; cm10 13:55 BP 134 / 74; Pulse 65; Resp 16; Pulse Ox 97% on R/A; cm10 14:30 BP 123 / 71; Pulse 69; Resp 16; Pulse Ox 97% on R/A; cm10 11:36 Body Mass Index 34.87 (113.40 kg, 180.34 cm) ll1 11:36 Pain Scale: Adult ll1 ED Course: 11:27 Patient arrived in ED. mg5 11:38 Triage completed. ll1 11:39 Onesimo Reina MD is Attending Physician. rt 11:41 Arm band placed on. ll1 12:00 Patient placed in an exam room, on a stretcher. bp 12:08 Aleida Wise, RN is Primary Nurse. cm10 12:18 CBC with Diff Sent. cm10 12:18 CMP Sent. cm10 12:18 Lipase Sent. cm10 12:18 Initial lab(s) drawn, by me, sent to lab. Inserted saline lock: 20 gauge in left cm10 antecubital area, using aseptic technique. Blood collected. Flushed with 10 mL NS. 12:31 Patient has correct armband on for positive identification. Placed in gown. Bed in low cm10 position. Call light in reach. Side rails up X2. Provided Education on: ER process and procedures.. Pulse ox on. NIBP on. 13:24 CT Abd/Pelvis - IV Contrast Only In Process Unspecified. EDMS 14:52 Assist provider with I \T\ D: of an abscess on perianal Set up I\T\D tray. Performed by cm 10 Onesimo Reina MD Patient tolerated well. 15:14 IV discontinued, intact, bleeding controlled, No redness/swelling at site. Pressure jb4 dressing applied. Administered Medications: 14:10 Drug: Ondansetron IVP 4 mg IVP once; over 2 minutes Route: IVP; Site: left antecubital; cm10 14:52 Follow up: Response: No adverse reaction cm10 14:11 Drug: morphine IVP or IV 4 mg IVP once over 4 mins Route: IVP; Infused Over: 4 mins; cm10 Site: left antecubital; 14:52 Follow up: Response: No adverse reaction cm10 14:54 Drug: Lidocaine Infiltration (1 %) 5 ml 5 ml Infiltration once; to bedside {Note: Given cm10 by provider..} Volume: 5 ml; Route: Infiltration; Medication: 12:31 VIS not applicable for this client. cm10 Outcome: 14:54 Discharge ordered by . rt 15:14 Discharged to home ambulatory, jb4 15:14 Condition: stable 15:14 Discharge instructions given to patient, Instructed on discharge instructions, follow up and referral plans. medication usage, Demonstrated understanding of instructions, follow-up care, medications, Prescriptions given X 1, 15:16 Patient left the ED. jb4 Signatures: Dispatcher [facility] EDKY Urbano Castro, RN RN jb4 Doni Hearn RN RN Pedro Alexander, RN RN ll1 Onesimo Reina MD MD rt Martinez, Clarissa, RN RN cm10 Kimberly Hurst mg5 Corrections: (The following items were deleted from the chart) 11:42 11:41 Pain: Complains of pain in perineum Quality of pain is described as aching, Pain ll1 began ll1
[2024-05-10 16:21] VITALS: TEMP 98.3
[2024-05-10 16:24] VITALS: O2SAT 97
[2024-05-10 16:25] VITALS: BP 123/71
== END 2024-05-10 15:16 | disposition home or self-care (01) ==
LOC: ER 11:14
PROC: 0H99XZZ Drainage of Perineum Skin, External Approach (ICD-10-PCS; principal; 2024-05-10)
DX: L02.215 Cutaneous abscess of perineum (principal)
CPT/HCPCS: 10060; 36415; 74177; 80053; 83690; 85025; 96374; 96375; 99285; J2001; J2405; Q9967

== ENCOUNTER 2024-12-08 06:08 | Emergency (ER) | payer OTHER ==
--- OUTSIDE RECORDS SUMMARY | 2024-12-08 06:10 | XMS REPORT | Continuity of Care Document ---
Author Name Unknown Address [address] Address [address] [facility] [address] [place] [address] Care Team Providers Care Insurance Account Manager Name Role Phone MARLO DAN Attending Clinician Unavailable ABEIL QUESADA Attending Clinician Unavaila ble [id number] Attending Clinician Unavailable ABIEL QUESAAD Attending Clinician Unavailabl e [id number] Attending Clinician Unavailable TONI HENRY Attending Clinician Unavailab le Payers Payer Name Policy Type Policy Number Effective Date Expirati on Date Source [facility] [place] RYAN COPAY FOCUS 9 [id number] 2024 00:00:00 [employer] 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 9 [id number] 2023 00:00:00 Problems Condition Name Condition Details Condition Category Status Onset Date Resolution Date Last Treatment Date Treating Clinician Comments Source Scrotal pain Scrotal pain Disease Active 11-15 00:00: 00 Brittany Brooks - Externa l Callus of toe Callus of toe Disease Active 11-15 00:00: 00 Brittany Perezold - Externa l Abscess of scrotum Abscess of scrotum Disease Active 2023-07 00:00: 00 Brittany Brooks - Externa l Erectile dysfunctio n Erectile dysfunctio n Disease Active 03-24 00:00: 00 Brittany Brooks - Externa l Cellulitis of left lower extremity Cellulitis of left lower extremity Disease Active 03-24 00:00: 00 Brittany Brooks - Externa bryan Well adult exam Well adult exam Disease Active 03-24 00:00: 00 Brittany Brooks - Externa bryan Type 2 diabetes mellitus with hyperlipid emia (multi HCC) Type 2 diabetes mellitus with hyperlipid emia (multi HCC) Disease Active 2022-07 00:00: 00 Brittany Goldberga bryan 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) Disease Active 2022-07 00:00: 00 Brittany Goldberga bryan Class 1 obesity due to excess calories with serious comorbidit y and body mass index (BMI) of 34.0 to 34.9 in adult Class 1 obesity due to excess calories with serious comorbidit y and body mass index (BMI) of 34.0 to 34.9 in adult Disease Active Brittany Terry Externa bryan Severe obesity Severe obesity Disease Active Brittany Brooks - Externa l Social History Social Habit Start Date Stop Date Quantity Comments Source History of Occupation Brittany Brooks - External History of tobacco use Cigarette Smoker Brittany shannon - External Sexual orientation K medardo Brooks - External Alcoholic beverage intake 2024-11-15 00:00:00 2024-11-15 00:00:00 .29 /d Brittany Brooks - External Cigarettes smoked current (pack per day) - Reported 2024-03-24 00:00:00 2024-03-24 00:00:00 Brittany Brooks - External Tobacco use and exposure 2024-03-24 00:00:00 2024-03-24 00:00:00 Smokeless tobacco non-user Brittany Brooks - External History of Social function 2024-03-24 00:00:00 2024-03-24 00:00:00 Brittany Brooks - External Alcohol Comment 2024-03-24 00:00:00 2024-03-24 00:00:00 quit 4 years ago Brittany Terry External Cigarette pack-years 2024-03-24 00:00:00 2024-03-24 00:00:00 Brittany Brooks - External Tobacco Comment 2024-03-24 00:00:00 2024-03-24 00:00:00 Quit 4 months ago. He was smoking 1.5 ppd for 20 years. Brittany Brooks - External Alcohol intake 2023-06-01 00:00:00 2023-06-01 00:00:00 .29 /d Brittany Brooks - External Education 2023-03-08 00:00:00 2023-03-08 00:00:00 13 Brittany Brooks - External Sex 2022-10-14 21:30:30 2022-10-14 21:30:30 Male (finding) Brittany Brooks - External Sex assigned at 1975 00:00:00 1975 00:00:00 Brittany Brooks - External Smoking Status Start Date Stop Date Source Ex-smoker 2024-03-24 00:00:00 2024-03-24 00:00:00 Antwon Brooks - External Smokes tobacco daily 2023-03-08 00:00:00 Brittany Brooks - External Medications Ordered Medication Name Filled Medication Name Start Date Stop Date Current Medication? Ordering Clinician Indication Dosage Frequency Signature (SIG) Comments Components Source Dulaglutide 4.5 MG/0.5ML subcutaneou s Solution Auto-inject or 11-15 00:00: 00 Yes [id number] 4.5mg Q1W Inject 4.5 mg into the skin once a week. Brittany adams Insulin Glargine (Basaglar KwikPen) 100 UNIT/ML subcutaneou s Solution Pen-injecto r 11-15 00:00: 00 Yes [id number] 20U QD Inject 20 units into the skin daily (with breakfast) . Brittany adams Amoxicillin -Pot Clavulanate 875-125 MG oral Tablet 11-15 00:00: 00 Yes 1{tbl} Q.5D Take 1 tablet by mouth 2 times daily. Brittany adams Mupirocin (BACTROBAN) 2 % apply externally Ointment 11-15 00:00: 00 Yes 1{appli cation} Q.5D Apply 1 Applicatio n topically 2 times daily. Brittany adams Insulin Glargine (Basaglar KwikPen) 100 UNIT/ML subcutaneou s Solution Pen-injecto r 10-24 00:00: 00 11-15 00:00 :00 No [id number] 15U QD Inject 15 units into the skin daily (with breakfast) . Brittany adams Trulicity 3 MG/0.5ML subcutaneou s Solution Pen-injecto r 2023-07 00:00: 00 Yes [id number] 3mg Q1W Inject 3 mg into the skin once a week. Brittany adams Tadalafil 20 MG oral Tablet 2023-07 00:00: 00 Yes [id number] 20mg QD Take 1 tablet (20 mg total) by mouth daily as needed for erectile dysfunctio n. Brittany adams Gabapentin 300 MG oral Capsule 2023-07 00:00: 00 Yes [id number] 300mg Q.5D Take 1 capsule (300 mg total) by mouth 2 times daily as needed (pain). Brittany adams Trulicity 3 MG/0.5ML subcutaneou s Solution Pen-injecto r 2023-07 00:00: 00 11-15 00:00 :00 No [id number] 3mg Q1W Inject 3 mg into the skin once a week. Brittany adams Gabapentin 300 MG oral Capsule 04-07 00:00: 00 05-17 00:00 :00 No [id number] 300mg Q.5D Take 1 capsule (300 mg total) by mouth 2 times daily as needed (pain). Brittany adams Insulin Glargine (Basaglar KwikPen) 100 UNIT/ML subcutaneou s Solution Pen-injecto r 03-30 00:00: 00 Yes [id number] 15U Inject 15 units into the skin at bedtime. Brittany adams Insulin Pen Needle (Pen Vulcan) 32G X 4 MM does not apply Misc 03-30 00:00: 00 Yes [id number] 1{each} Q.5D 1 each by does not apply route 2 times daily. Brittany adams Atorvastati michelet Calcium (Lipitor) 10 MG oral Tablet 2024-0 9-04 00:00: 00 Yes [id number] 10mg QD Take 1 tablet (10 mg total) by mouth nightly. Brittany adams Metformin HCl 1000 MG oral Tablet 03-24 00:00: 00 Yes [id number] 1000mg Take 1 tablet (1,000 mg total) by mouth in the morning and 1 tablet (1,000 mg total) in the evening. Take with meals. Brittany adams Gabapentin 100 MG oral Capsule 03-24 00:00: 00 Yes [id number] 100mg Q.5D Take 1 capsule (100 mg total) by mouth 2 times daily as needed (pain). Brittany adams [place]-3-aci d Ethyl Esters 1 g oral Capsule 03-24 00:00: 00 Yes [id number] 1g QD Take 1 capsule (1 g total) by mouth daily. Brittany adams Insulin Glargine (Basaglar KwikPen) 100 UNIT/ML subcutaneou s Solution Pen-injecto r 03-24 00:00: 00 Yes [id number] 15U Inject 15 units into the skin at bedtime Inject 10 units once daily subcutaneo usly. Brittany adams Trulicity 1.5 MG/0.5ML subcutaneou s Solution Pen-injecto r 03-24 00:00: 00 05-17 00:00 :00 No [id number] 1.5mg Q1W Inject 1.5 mg into the skin once a week. Brittany adams Tadalafil 5 MG oral Tablet 03-24 00:00: 00 05-17 00:00 :00 No [id number] 5mg QD Take 1 tablet (5 mg total) by mouth daily as needed for erectile dysfunctio n. Brittany adams [place]-aci [place] Ethyl Esters 1 g oral Capsule 2022-0715 00:00: 00 03-24 00:00 :00 No 1g QD Take 1 capsule (1 g total) by mouth daily. Brittany adams [place]-aci [place] Ethyl Esters 1 g oral Capsule 2022-07 0 00:00: 00 Yes 1g Take 1 capsule (1 g total) by mouth 3 times daily. Brittany adams Blood Glucose Monitoring Suppl (Blood Glucose Monitor System) w/Device does not apply Kit 2022-07 0 00:00: 00 Yes [id number] Check blood sugar before breakfast and at bedtime. Brittany adams Glucose Blood in vitro Strip 2022-07 00:00: 00 Yes [id number] 2{each} Q.5D 2 each by other route 2 times daily. Brittany adams Metformin HCl 1000 MG oral Tablet 2022-07 00:00: 00 03-24 00:00 :00 No [id number] 1000mg Take 1 tablet (1,000 mg total) by mouth in the morning and 1 tablet (1,000 mg total) in the evening. Take with meals. Brittany adams Trulicity 0.75 MG/0.5ML subcutaneou s Solution Pen-injecto r 2022-07 00:00: 00 03-24 00:00 :00 No [id number] .75mg Q1W Inject 0.75 mg into the skin once a week. Brittany adams Insulin Glargine (Basaglar KwikPen) 100 UNIT/ML subcutaneou s Solution Pen-injecto r 2022-07 00:00: 00 03-24 00:00 :00 No [id number] Inject 10 units once daily subcutaneo usly. Brittany adams [place] 3 1000 MG oral Capsule 03-10 00:00: 00 Yes [id number] 1{capsu le} Take 1 capsule by mouth 3 times daily Brittany adams [place]-aci [place] Ethyl Esters 1 g oral Capsule 03-10 00:00: 00 Yes Brittany adams Metformin HCl 1000 MG oral Tablet 8-14 00:00: 00 04-28 00:00 :00 No [id number] 1000mg Take 1 tablet (1,000 mg total) by mouth in the morning and 1 tablet (1,000 mg total) in the evening. Take with meals. Brittany Senoold - Externa l Immunizations Ordered Immunization Name Filled Immunization Name Date Status Comments Source Tdap- (Boostrix, Adacel) Unknown Completed Brittany Seybold - External Tdap- (Boostrix, Adacel) Unknown Completed Brittany Seybold - External Tdap- (Boostrix, Adacel) Unknown Completed Brittany Seybold - External Tdap- (Boostrix, Adacel) Unknown Completed Brittany Seybold - External Tdap- (Boostrix, Adacel) Unknown Completed Brittany Meredithybold - External Vital Signs Vital Name Observation Time Observation Value Comments S ource Systolic blood pressure 2024-11-15 13:42:00 124 mm[Hg] Brittany Meredithybo ld - External Diastolic blood pressure 2024-11-15 13:42:00 68 mm[Hg] Brittany Meredithybo ld - External Heart rate 2024-11-15 13:42:00 68 /min Logan gamez Seybold - External Body temperature 2024-11-15 13:42:00 36.11 Shabnam Brittany Meredithybold - External Respiratory rate 2024-11-15 13:42:00 16 /min Brittany Perezold - External Body height 2024-11-15 13:42:00 177.8 cm Annie Brooks - External Body weight 2024-11-15 13:42:00 109.952 kg Annie manuel Seybold - External BMI 2024-11-15 13:42:00 34.78 kg/m2 Annie manuel Seybold - External Oxygen saturation in Arterial blood by Pulse oximetry 2024-11-15 13:42:00 97 /min Brittany Perezo ld - External Systolic blood pressure 2024-05-17 21:30:00 123 mm[Hg] Brittany Meredithybo ld - External Diastolic blood pressure 2024-05-17 21:30:00 77 mm[Hg] Brittany Meredithybo ld - External Heart rate 2024-05-17 21:30:00 64 /min Jasonse y Seybold - External Body temperature 2024-05-17 21:30:00 36.5 Shabnam Brittany Seybold - External Respiratory rate 2024-05-17 21:30:00 16 /min Brittany Seybold - External Body height 2024-05-17 21:30:00 177.8 cm Annie ey Seybold - External Body weight 2024-05-17 21:30:00 112.038 kg Annie ey Seybold - External BMI 2024-05-17 21:30:00 35.44 kg/m2 Annie ey Seybold - External Oxygen saturation in Arterial blood by Pulse oximetry 2024-05-17 21:30:00 100 /min Brittany Seybo ld - External Systolic blood pressure 2024-03-24 20:10:00 131 mm[Hg] Brittany Seybo ld - External Diastolic blood pressure 2024-03-24 20:10:00 79 mm[Hg] Brittany Seybo ld - External Heart rate 2024-03-24 20:10:00 74 /min Kelse y Seybold - External Body temperature 2024-03-24 20:10:00 36.5 Shabnam Brittany Seybold - External Respiratory rate 2024-03-24 20:10:00 16 /min Brittany Seybold - External Body height 2024-03-24 20:10:00 177.8 cm Annie ey Seybold - External Body weight 2024-03-24 20:10:00 111.585 kg Annie ey Seybold - External BMI 2024-03-24 20:10:00 35.30 kg/m2 Annie ey Seybold - External Oxygen saturation in Arterial blood by Pulse oximetry 2024-03-24 20:10:00 100 /min Brittany Seybo ld - External Systolic blood pressure 2023-06-01 14:05:00 110 mm[Hg] Brittany Seybo ld - External Diastolic blood pressure 2023-06-01 14:05:00 60 mm[Hg] Rbittany Seybo ld - External Heart rate 2023-06-01 14:05:00 80 /min Kelse y Seybold - External Body temperature 2023-06-01 14:05:00 36.61 Shabnam Brittany Seybold - External Respiratory rate 2023-06-01 14:05:00 18 /min Brittany Seybold - External Body height 2023-06-01 14:05:00 177.8 cm Annie ey Seybold - External Body weight 2023-06-01 14:05:00 114.363 kg Annie ey Seybold - External BMI 2023-06-01 14:05:00 36.18 kg/m2 Annie ey Seybold - External Oxygen saturation in Arterial blood by Pulse oximetry 2023-06-01 14:05:00 97 /min Brittany Perezo ld - External Systolic blood pressure 2023-04-28 13:28:00 108 mm[Hg] Brittany Perezo ld - External Diastolic blood pressure 2023-04-28 13:28:00 64 mm[Hg] Brittany Seybo ld - External Heart rate 2023-04-28 13:28:00 78 /min Logan y Seybold - External Body temperature 2023-04-28 13:28:00 36.61 Shabnam Brittany Seybold - External Respiratory rate 2023-04-28 13:28:00 20 /min Brittany Meredithybold - External Body height 2023-04-28 13:28:00 177.8 cm Annie ey Seybold - External Body weight 2023-04-28 13:28:00 114.817 kg Annie ey Seybold - External BMI 2023-04-28 13:28:00 36.32 kg/m2 Annie ey Seybold - External Oxygen saturation in Arterial blood by Pulse oximetry 2023-04-28 13:28:00 98 /min Brittany Perezo ld - External Encounters Start Date/Time End Date/Time Encounter Type Admission Type Attending [facility] Care Department Encounter ID Source 2024-12-27 08:45:00 2024-12-27 08:45:00 Outpatient MARLO DAN [id number] Brittany Brooks 2024-11-29 08:30:00 2024-11-29 08:30:00 Outpatient ABIEL QUESADA [id number] Brittany Brooks 2024-11-20 00:00:00 2024-11-20 00:00:00 Outpatient MARLO DAN [id number] Brittany Brooks 2024-11-17 00:00:00 2024-11-17 00:00:00 Outpatient MARLO DAN [id number] Brittanyernesto Brooks 2024-11-15 09:15:00 2024-11-15 09:15:00 Outpatient PDT143Sheila BEARD BRITTANY [id number] Brittany Brooks 2024-11-15 08:45:00 2024-11-15 08:45:00 Outpatient PREZAS, MARLO BEARD BRITTANY [id number] Brittany Brooks 2024-10-18 00:00:00 2024-10-18 00:00:00 Outpatient PREZAS, MARLO BEARD BRITTANY [id number] Brittany Meredithshiva 2024-09-05 00:00:00 2024-09-05 00:00:00 Outpatient PREZAS, MARLO BRITTANY BEARD [id number] Brittany Brooks 2024-08-21 10:45:00 2024-08-21 10:45:00 Outpatient PREZAS, MARLO BRITTANY BRITTANY [id number] Brittany Brooks 2024-08-16 10:00:00 2024-08-16 10:00:00 Outpatient PREZAS, MARLO BRITTANY BEARD [id number] [facility] 2024-07-05 10:00:00 2024-07-05 10:00:00 Outpatient PREZAS, MARLO BRITTANY BEARD [id number] [facility] 2024-07-02 00:00:00 2024-07-02 00:00:00 Outpatient PREZAS, MARLO BRITTANY BEARD [id number] Brittany [facility] 2024-05-31 08:15:00 2024-05-31 08:15:00 Outpatient DIPAK, ABIEL BRITTANY BEARD [id number] [facility] 2024-05-17 16:30:00 2024-05-17 16:30:00 Outpatient PREZAS, MARLO BRITTANY BEARD [id number] [facility] 2024-05-11 09:15:00 2024-05-11 09:15:00 Outpatient PREZAS, MARLO BRITTANY BEARD [id number] Brittany [facility] 2024-04-07 08:15:00 2024-04-07 08:15:00 Outpatient DIPAK, BEEBE BRITTANY BEARD [id number] [facility] 2024-04-07 00:00:00 2024-04-07 00:00:00 Outpatient PREZAS, MARLO BEARD BRITTANY [id number] Brittany [facility] 2024-04-07 00:00:00 2024-04-07 00:00:00 Outpatient PREZAS, MARLO BEARD BRITTANY [id number] Brittany [facility] 2024-04-06 08:15:00 2024-04-06 08:15:00 Outpatient ABIEL QUESADA BRITTANY [id number] Brittany Seybold 2024-03-30 00:00:00 2024-03-30 00:00:00 Outpatient PREZAS, MARLO BEARD BRITTANY [id number] Brittany M[facility] 2024-03-29 00:00:00 2024-03-29 00:00:00 Outpatient PREZAS, MARLO BEARD BRITTANY [id number] Brittany Seybshiva 2024-03-24 15:50:00 2024-03-24 15:50:00 Outpatient LABKiah BEARD BRITTANY [id number] Brittany Seybold 2024-03-24 15:00:00 2024-03-24 15:00:00 Outpatient PREZAS, MARLO BEARD BRITTANY [id number] Brittany Seybold 2024-03-24 00:00:00 2024-03-24 00:00:00 Outpatient PREZAS, MARLO BEARD BRITTANY [id number] Brittany Seybshiva 2024-03-02 00:00:00 2024-03-02 00:00:00 Outpatient PREZAS, MARLO BRITTANY BRITTANY [id number] [facility] 2023-09-12 00:00:00 2023-09-12 00:00:00 Outpatient TONI HENRY [id number] Brittany Seybold 2023-09-01 08:00:00 2023-09-01 08:00:00 Outpatient TONI HENRY [id number] Brittany Seybold 2023-08-20 00:00:00 2023-08-20 00:00:00 Outpatient TONI HENRY [id number] [facility] 2023-08-12 00:00:00 2023-08-12 00:00:00 Outpatient TONI HENRY BRITTANY [id number] Brittany [facility] 2023-06-09 00:00:00 2023-06-09 00:00:00 Outpatient TONI HENRY BRITTANY [id number] Brittany [facility] 2023-06-02 00:00:00 2023-06-02 00:00:00 Outpatient TONI HENRY BRITTANY [id number] Brittany [facility] 2023-06-01 08:45:00 2023-06-01 08:45:00 Outpatient LAB90 BRITTANY BRITTANY [id number] Brittany [facility] 2023-06-01 08:00:00 2023-06-01 08:00:00 Outpatient TONI HENRYERNESTO BEARD [id number] Brittany [facility] 2023-05-31 08:30:00 2023-05-31 08:30:00 Outpatient TONI HENRY [facility] [id number] [facility]23-[facility]-10 00:00:00 2023-05-10 00:00:00 Outpatient TONI HENRYERNESTO BEARD [id number] Brittany [facility] 2023-04-28 09:15:00 2023-04-28 09:15:00 Outpatient LAB90 BRITTANY BRITTANY [id number] Brittany [facility] 2023-04-28 08:30:00 2023-04-28 08:30:00 Outpatient TONI HENRY BRITTANY BEARD [id number] Brittany [facility] 2023-04-08 00:00:00 2023-04-08 00:00:00 Outpatient TONI HENRY BRITTANY BEARD [id number] Brittany [facility] 2023-04-08 00:00:00 2023-04-08 00:00:00 Outpatient MARLO DAN [id number] Brittany [facility] 2023-03-18 10:00:00 2023-03-18 10:00:00 Outpatient TONI HENRY BRITTANY BEARD [id number] Brittany [facility] 2023-03-09 00:00:00 2023-03-09 00:00:00 Outpatient TONI HENRY BRITTANY BEARD [id number] Brittany Brooks 2023-03-08 11:10:00 2023-03-08 11:10:00 Outpatient LAB90 BRITTANY BEARD [id number] Brittany Brooks 2023-03-08 10:00:00 2023-03-08 10:00:00 Outpatient TONI HENRY BRITTANY BEARD [id number] Brittany Brooks 2023-03-04 16:30:00 2023-03-04 16:30:00 Outpatient TONI HENRY BRITTANY BEARD [id number] Brittany Brooks 2023-03-04 14:30:00 2023-03-04 14:30:00 Outpatient CARL TONI BEARD [id number] Brittany Todd Notes Date/Time Note Provider Source 2024-11-15 08:46:34 Chief Complaint Patient presents with Diabetes 3 month follow up REFILLS-NURSE/MD Medication refill Corine Vines MA [facility]Todd [facility]
[2024-12-08] MEDS ORDERED: ONDANSETRON 4 MG/2 ML VIAL ONE ×2 (06:43→07:43)
[2024-12-08] MEDS ORDERED: NA CHLORIDE 0.9% 1,000 ML ONE (06:43)
[2024-12-08 06:53] LABS: Absolute Eosinophils 0.6 K/uL (0-0.5); Absolute Lymphocytes (CBC) 1.9 K/uL (0.7-4.9); Absolute Monocytes 0.6 K/uL (0.1-1.3); Absolute Neutrophil 10.4 K/uL (1.8-8.0); Basophils % 0.2 % (0-1.3); Eosinophils % 4.8 % (0-4.4); Hematocrit 48.1 % (39.6-49.0); Hemoglobin 16.4 g/dL (13.6-17.9); Lymphocytes % 13.8 % (15.3-44.8); MCH 29.9 pg (27.0-35.0); MCHC 34.2 g/dL (32.0-36.0); MCV 87.6 fL (80-100); Monocytes % 4.5 % (3.3-12.3); Neutrophils % 76.7 % (41.7-73.7); Nucleated Red Blood Cells % 0.1 % (0-0); Platelets 258 thou/uL (152-406); RBC Red Blood Cell Count 5.49 M/uL (4.33-5.43)
[2024-12-08 07:09] LABS: Albumin 3.8 g/dL (3.4-5.0); Albumin/Globulin Ratio 0.9 (1.1-1.8); Anion Gap 8.4 mEq/L (5.0-15.0); Bilirubin Total 1.3 mg/dL (0.2-1.0); Globulin 4.4 g/dL (2.3-3.5); Potassium 4.4 mEq/L (3.5-5.1); Protein, Total 8.2 g/dL (6.4-8.2)
[2024-12-08] MEDS ORDERED: KETOROLAC 30 MG/ML INJ ONE (07:28)
[2024-12-08] MEDS ORDERED: DICYCLOMINE HCL 20 MG/2 ML AMP IM ONE (07:28)
--- NOTE | 2024-12-08 08:06 | RAD REPORT ---
EXAMINATION: CT Abdomen Pelvis W Contrast CLINICAL INDICATION: Male, 49 years old. ABD PAIN TECHNIQUE: CT abdomen and pelvis was performed, after the administration of IV contrast, as per [facility] protocol. Axial, sagittal and coronal reconstructions were obtained. One or more of the following dose reduction techniques were used: Automated exposure control, adjustment of the mA and k V according to patient size, and iterative reconstruction. Unless otherwise specified, incidental findings do not require dedicated imaging follow-up. COMPARISON: 05/10/2024 FINDINGS: LOWER CHEST: The visualized lung bases are clear. LIVER: Mild fatty liver is present. No focal lesion or biliary dilataion is seen. BILIARY SYSTEM: No suspicious abnormalities. SPLEEN: Normal size. No focal lesion. PANCREAS: No mass, ductal dilation, or navdeep-pancreatic fluid. ADRENALS: Normal; no mass. KIDNEYS: Normal size and contour. No hydronephrosis. URINARY BLADDER: Unremarkable. GASTROINTESTINAL TRACT: No evidence of free air, significant intra-abdominal free fluid, bowel obstru ction or abscess. Nonspecific fluid opacification of nondistended cecum and ascending colon. APPENDIX: Normal appendix. LYMPH NODES: No lymphadenopathy. MUSCULOSKELETAL: No acute or suspicious osseous abnormality. ADDITIONAL FINDINGS: None. IMPRESSION: Nonspecific fluid opacification of nondistended cecum and ascending colon, could relate to diarrheal state. Diffuse hepatic steatosis. No other acute or concerning abnormalities seen in the abdomen or pelvis.
[2024-12-08 09:28] LABS: Specific Gravity > 1.030 (1.005-1.030); Sqamous Epithelial <5 /HPF (None Seen); Urine Bacteria None Seen /HPF (<20); Urine Bilirubin NEGATIVE (Negative); Urine Blood Negative (Negative); Urine Clarity Clear (Clear); Urine Color Yellow (Yellow); Urine Culture Reflex Order NOT NEEDED; Urine Glucose 4+ (Over) (Negative); Urine Ketones 1+ (Negative); Urine Microscopic Reflex YN ORDER UMIC; Urine Mucus 3+ /HPF (None Seen); Urine Nitrite NEGATIVE (Negative); Urine Protein 1+ (Negative); Urine RBC <5 /HPF (None Seen); Urine Urobilinogen Normal (Normal); Urine WBC <5 /HPF (<5); Urine WBC Clump Rare /HPF (None Seen); Urine pH 5.5 (5.0-7.0)
--- NOTE | 2024-12-08 09:37 | EDPHYS ---
Physician Documentation [facility] Name: Jose Carlos Trammell Age: 49 yrs Sex: Male : 1975 Arrival Date: 12/08/2024 Time: 06:08 Bed 6 Private MD: Cheng Samuel ED Physician Onesimo Reina HPI: 12/08 07:29 This 49 yrs old Male presents to ER via Ambulatory with complaints of rt Nausea/Vomiting. 07:29 Patient presents to the ED with epigastric pain radiating inferiorly. Associated rt nausea, vomiting, diarrhea. Started about 6 hours prior to arrival. Denies other acute complaints at this time, denies hematemesis, hematochezia. Symptoms are moderate in severity, no other aggravating or alleviating factors.. Historical: - Allergies: 06:22 No Known Allergies; ha1 - Home Meds: 06:22 metformin 1 Oral tab 1 tab 2 times per day [Active]; ha1 - PMHx: 06:22 Diabetes - NIDDM; ha1 - Immunization history:: Adult Immunizations up to date. - Infectious Disease History:: Denies. - Social history:: Smoking status: Patient/guardian denies using tobacco, the patient reports quitting approximately 1 years ago. - Family history:: not pertinent. ROS: 07:29 Constitutional: Negative for fever, chills, and weight loss, Cardiovascular: Negative rt for chest pain, palpitations, and edema, Respiratory: Negative for shortness of breath, cough, wheezing, and pleuritic chest pain, MS/Extremity: Negative for injury and deformity, Skin: Negative for injury, rash, and discoloration, Neuro: Negative for headache, weakness, numbness, tingling, and seizure, 07:29 Abdomen/GI: Positive for abdominal pain, nausea, vomiting, and diarrhea, Exam: 07:29 Constitutional: This is a well developed, well nourished patient who is awake, alert, rt and in no acute distress. Head/Face: Normocephalic, atraumatic. Chest/axilla: Normal chest wall appearance and motion. Nontender with no deformity. No lesions are appreciated. Cardiovascular: Regular rate and rhythm with a normal S1 and S2. No gallops, murmurs, or rubs. Normal PMI, no JVD. No pulse deficits. Respiratory: Lungs have equal breath sounds bilaterally, clear to auscultation and percussion. No rales, rhonchi or wheezes noted. No increased work of breathing, no retractions or nasal flaring. Skin: Warm, dry with normal turgor. Normal color with no rashes, no lesions, and no evidence of cellulitis. MS/ Extremity: Pulses equal, no cyanosis. Neurovascular intact. Full, normal range of motion. Neuro: Awake and alert, GCS 15, oriented to person, place, time, and situation. Cranial nerves II-XII grossly intact. Motor strength 5/5 in all extremities. Sensory grossly intact. Cerebellar exam normal. Normal gait. 07:29 Abdomen/GI: Tenderness to the right upper quadrant to epigastrium with mild guarding, no rebound, distention, Vital Signs: 06:22 BP 135 / 85; Pulse 95; Resp 17 S; Temp 97.7(O); Pulse Ox 98% on R/A; Weight 106.59 kg; ha1 Height 5 ft. 9 in. ; Pain 10/10; 08:00 BP 151 / 88; Pulse 85; Resp 18; Pulse Ox 95% on R/A; ph 09:00 BP 117 / 72; Pulse 81; Resp 18; Pulse Ox 98% on R/A; ph 10:00 BP 117 / 77; Pulse 84; Resp 16; Temp 97.9; Pulse Ox 97% on R/A; ph 06:22 Body Mass Index 34.70 (106.59 kg, 175.26 cm) ha1 06:22 Pain Scale: Adult ha1 MDM: 06:56 Medical Screening Exam initiated gb1 14:59 Differential diagnosis: Gastroenteritis, gastritis, pancreatitis, cholelithiasis. Data rt reviewed: vital signs, nurses notes, lab test result(s), radiologic studies. I considered the following discharge prescriptions or medication management in the emergency department Medications were administered in the Emergency Department. See MAR. Independent interpretation of the following test(s) in the Emergency Department CT Scan: My interpretation is No bowel obstruction syndrome interpretation of CT scan images. Care significantly affected by the following chronic conditions: Diabetes. Counseling: I had a detailed discussion with the patient and/or guardian regarding the historical points, exam findings, and any diagnostic results supporting the discharge/admit diagnosis, lab results, radiology results, the need for outpatient follow up, to return to the emergency department if symptoms worsen or persist or if there are any questions or concerns that arise at home. Response to treatment: the patient's symptoms have markedly improved after treatment. 12/08 06:33 Order name: CBC with Diff; Complete Time: 07:58 gb1 12/08 06:33 Order name: CMP; Complete Time: 07:29 gb1 12/08 06:33 Order name: Lipase; Complete Time: 07:29 gb1 12/08 07:29 Order name: UA Rfx Juan Miguel Cult if indicated; Complete Time: 09:32 rt 12/08 07:06 Order name: CT Abd/Pelvis - IV Contrast Only; Complete Time: 08:09 rt 12/08 06:33 Order name: IV Saline Lock; Complete Time: 06:46 gb1 12/08 06:33 Order name: Labs collected and sent; Complete Time: 06:46 gb1 Administered Medications: 06:47 Drug: Ondansetron IVP 4 mg IVP once; over 2 minutes Route: IVP; Site: right antecubital;km10 10:21 Follow up: Response: No adverse reaction ph 06:47 Drug: NS 0.9% IV 1000 ml IV at 1 bolus Per protocol; to be given as a bolus over 60 km10 minutes Route: IV; Rate: 1 bolus; Site: right antecubital; 08:00 Follow up: Response: No adverse reaction; IV Status: Completed infusion; IV Intake: ph 1000ml 07:59 Drug: Dicyclomine IM 20 mg IM once Route: IM; Site: left deltoid; ph 10:21 Follow up: Response: No adverse reaction ph 07:59 Drug: Ketorolac IVP 15 mg IVP once Route: IVP; Site: right antecubital; ph 10:21 Follow up: Response: No adverse reaction ph Disposition Summary: 12/08/24 09:37 Discharge Ordered Notes: Location: Home rt Problem: new rt Symptoms: have improved rt Condition: Stable rt Diagnosis - Abdominal pain, unspecified rt - Nausea with vomiting, unspecified rt - Diarrhea, unspecified rt Followup: rt - With: Private Physician - When: 2 - 3 days - Reason: Discharge Instructions: - Discharge Summary Sheet rt - Abdominal Pain, Adult rt - Viral Gastroenteritis, Adult rt Forms: - Work release form hb - Medication Reconciliation Form rt - Antibiotic Education rt - Prescription Opioid Use rt - Patient Portal Instructions rt - Leadership Thank You Letter rt Prescriptions: - ondansetron 4 mg Oral Tablet,disintegrating - take 1 tablet ORAL route every 6 hours as needed for nausea; 15 tablet; rt Refills: 0, Product Selection Permitted - dicyclomine 10 mg Oral capsule - take 1 capsule ORAL route 4 times per day as needed for abdominal pain; 15 rt capsule; Refills: 0, Product Selection Permitted Signatures: Dispatcher [employer] EDSari Sheppard, RN RN Kimberly Mosley RN RN ha1 Onesimo Reina MD MD rt Federica Eaton MD MD gb1 Antonia Pacheco RN RN km10 Corrections: (The following items were deleted from the chart) 06:34 06:34 CBC+H.LAB.BRZ ordered. EDMS EDMS 06:34 06:34 COMPREHENSIVE METABOLIC PANEL+C.LAB.BRZ ordered. EDMS EDMS 06:34 06:34 LIPASE+C.LAB.BRZ ordered. EDMS EDMS
--- NOTE | 2024-12-08 09:37 | ER ---
Nurse's Notes [facility] Name: Jose Carlos Trammell Age: 49 yrs Sex: Male : 1975 Arrival Date: 12/08/2024 Time: 06:08 Bed 6 Private MD: Cheng Samuel Diagnosis: Abdominal pain, unspecified;Nausea with vomiting, unspecified;Diarrhea, unspecified Presentation: 12/08 06:22 Chief complaint: Patient states: MID EPIGASTRIC PAIN, NAUSEA, VOMITING THAT STARTED ha1 AFTER MIDNIGHT. 06:22 Coronavirus screen: Client denies travel out of the [place] in the last 14 days. Ebola ha1 Screen: No symptoms or risks identified at this time. Initial Sepsis Screen: Does the patient meet any 2 criteria? No. Patient's initial sepsis screen is negative. Does the patient have a suspected source of infection? No. Patient's initial sepsis screen is negative. Risk Assessment: Do you want to hurt yourself or someone else? Patient reports no desire to harm self or others. Onset of symptoms was December 08, 2024. 06:22 Method Of Arrival: Ambulatory ha1 06:22 Acuity: EDILMA 3 ha1 Triage Assessment: 06:22 General: Appears comfortable, Behavior is calm, cooperative. Pain: Complains of pain in ha1 epigastric area Pain currently is 10 out of 10 on a pain scale. Quality of pain is described as throbbing. Neuro: Level of Consciousness is awake, alert, obeys commands, Oriented to person, place, time, situation. Cardiovascular: Capillary refill < 3 seconds Patient's skin is warm and dry. Respiratory: Airway is patent Respiratory effort is even, unlabored, Respiratory pattern is regular, symmetrical. GI: Reports cramping, diarrhea, nausea, vomiting. : No signs and/or symptoms were reported regarding the genitourinary system. Derm: Skin is pink, warm \T\ dry. Musculoskeletal: Circulation, motion, and sensation intact. Range of motion: intact in all extremities. Historical: - Allergies: : No Known Allergies; ha1 - Home Meds: : metformin 1 Oral tab 1 tab 2 times per day [Active]; ha1 - PMHx: : Diabetes - NIDDM; ha1 - Immunization history:: Adult Immunizations up to date. - Infectious Disease History:: Denies. - Social history:: Smoking status: Patient/guardian denies using tobacco, the patient reports quitting approximately 1 years ago. - Family history:: not pertinent. Screenin:39 [facility] ED Fall Risk Assessment (Adult) History of falling in the last 3 months, ha1 including since admission No falls in past 3 months (0 pts) Confusion or Disorientation No (0 pts) Intoxicated or Sedated No (0 pts) Impaired Gait No (0 pts) Mobility Assist Device Used No (0 pt) Altered Elimination No (0 pt) Score/Fall Risk Level 0 - 2 = Low Risk Oriented to surroundings, Maintained a safe environment, Hourly rounding (assess needs \T\ fall precautionary measures) done. Abuse screen: Denies threats or abuse. Denies injuries from another. Nutritional screening: No deficits noted. Tuberculosis screening: No symptoms or risk factors identified. Assessment: 06:22 Reassessment: SEE TRIAGE ASSESSMENT. ha1 08:00 General: Appears in no apparent distress. uncomfortable, Behavior is calm, cooperative. ph Pain: Complains of pain in epigastric area. Neuro: Level of Consciousness is awake, alert, obeys commands, Oriented to person, place, time, situation. Cardiovascular: Capillary refill < 3 seconds in bilateral fingers Patient's skin is warm and dry. Respiratory: Airway is compromised Respiratory effort is even, unlabored. GI: Abdomen is non-distended, Reports upper abdominal pain, nausea. Derm: Skin is pink, warm \T\ dry. 10:21 Reassessment: Patient appears in no apparent distress at this time. Patient and/or ph family updated on plan of care and expected duration. Pain level reassessed. Patient is alert, oriented x 3, equal unlabored respirations, skin warm/dry/pink. Patient states feeling better. Vital Signs: 06:22 BP 135 / 85; Pulse 95; Resp 17 S; Temp 97.7(O); Pulse Ox 98% on R/A; Weight 106.59 kg; ha1 Height 5 ft. 9 in. ; Pain 10/10; 08:00 BP 151 / 88; Pulse 85; Resp 18; Pulse Ox 95% on R/A; ph 09:00 BP 117 / 72; Pulse 81; Resp 18; Pulse Ox 98% on R/A; ph 10:00 BP 117 / 77; Pulse 84; Resp 16; Temp 97.9; Pulse Ox 97% on R/A; ph 06:22 Body Mass Index 34.70 (106.59 kg, 175.26 cm) ha1 06:22 Pain Scale: Adult ha1 ED Course: 06:11 Patient arrived in ED. gm2 06:11 Cheng Samuel DO is Private Physician. gm2 06:22 Patient has correct armband on for positive identification. Bed in low position. Call ha1 light in reach. Side rails up X 1. 06:34 Triage completed. ha1 06:46 CBC with Diff Sent. km10 06:46 CMP Sent. km10 06:46 Lipase Sent. km10 06:49 Antonia Pacheco RN is Primary Nurse. km10 06:59 Onesimo Reina MD is Attending Physician. rt 07:26 CT Abd/Pelvis - IV Contrast Only In Process Unspecified. EDMS 08:02 Arm band placed on. ph 08:02 No provider procedures requiring assistance completed. ph 10:22 IV discontinued, intact, bleeding controlled, No redness/swelling at site. Pressure ph dressing applied. Administered Medications: 06:47 Drug: Ondansetron IVP 4 mg IVP once; over 2 minutes Route: IVP; Site: right antecubital;km10 10:21 Follow up: Response: No adverse reaction ph 06:47 Drug: NS 0.9% IV 1000 ml IV at 1 bolus Per protocol; to be given as a bolus over 60 km10 minutes Route: IV; Rate: 1 bolus; Site: right antecubital; 08:00 Follow up: Response: No adverse reaction; IV Status: Completed infusion; IV Intake: ph 1000ml 07:59 Drug: Dicyclomine IM 20 mg IM once Route: IM; Site: left deltoid; ph 10:21 Follow up: Response: No adverse reaction ph 07:59 Drug: Ketorolac IVP 15 mg IVP once Route: IVP; Site: right antecubital; ph 10:21 Follow up: Response: No adverse reaction ph Medication: 06:40 VIS not applicable for this client. ha1 Intake: 08:00 IV: 1000ml; Total: 1000ml. ph Outcome: 09:37 Discharge ordered by MD. rt 10:22 Discharged to home ambulatory, ph 10:22 Condition: good 10:22 Discharge instructions given to patient, Instructed on discharge instructions, follow up and referral plans. medication usage, Demonstrated understanding of instructions, follow-up care, medications, Prescriptions given X 2, 10:25 Patient left the ED. Signatures: Dispatcher [employer] EDMS Sari Bingham RN RN Fabiana Lambert RN RN Kimberly Mosley RN RN ha1 Onesimo Reina MD MD rt Peggy Gil 2 Antonia Pacheco RN RN km10
[2024-12-08 10:34] VITALS: BP 117/77; TEMP 97.9; O2SAT 97
== END 2024-12-08 10:25 | disposition home or self-care (01) ==
LOC: ER 06:08
DX: R10.13 Epigastric pain (principal); R11.2 Nausea with vomiting, unspecified; R19.7 Diarrhea, unspecified; E11.9 Type 2 diabetes mellitus without complications
CPT/HCPCS: 96361; 85025; 81001; 36415; 83690; 80053; 74177; 96375; 96372; 96374; 99284; Q9967; J0500; J2405 ×2; J7030

== ENCOUNTER 2025-05-03 08:09 | Emergency (ER) | payer OTHER, SELFPAY ==
--- OUTSIDE RECORDS SUMMARY | 2025-05-03 08:15 | XMS REPORT | Continuity of Care Document ---
Author Name Unknown Address [address] Address [address] [facility] 1 [address] [place] [address] Care Team Providers Care Bag Printer Name Role Phone MARLO DAN Attending Clinician Unavailable ABIEL QUESADA Attending Clinician Unavaila ble [id number] Attending Clinician Unavailable ABIEL QUESADA Attending Clinician Unavailabl e [id number] Attending Clinician Unavailable TONI HENRY Attending Clinician Unavailab le Payers Payer Name Policy Type Policy Number Effective Date Expirati on Date Source [facility] [place] [facility]AY FOCUS 9 [id number] 2024 00:00:00 [employer] [facility] 5 O [employer] 94 ON 9 [id number] 2023 00:00:00 Problems Condition Name Condition Details [...] extremity Disease Active 03-24 00:00: 00 Brittany Terry Externa bryan Well adult exam Well adult [...] Solution Auto-inject or 11-15 00:00: 00 Yes [id number] 4.5mg Q1W Inject 4.5 mg into the skin once a week. Brittany adams Insulin Glargine (Basaglar KwikPen) 100 UNIT/ML subcutaneou s Solution Pen-injecto r 11-15 00:00: 00 Yes [id number] 20U QD Inject 20 units into the [...] 10-24 00:00: 00 11-15 00:00 :00 No [id number] 15U QD Inject 15 units into the skin daily (with breakfast) . Brittany adams Trulicity 3 MG/0.5ML subcutaneou s Solution Pen-injecto r 2023-07 00:00: 00 Yes [id number] 3mg Q1W Inject 3 mg into the skin once a week. Brittany adams Tadalafil 20 MG oral Tablet 2023-07 00:00: 00 Yes [id number] 20mg QD Take 1 tablet (20 mg total) by mouth daily as needed for erectile dysfunctio n. Brittany adams Gabapentin 300 MG oral Capsule 2023-07 00:00: 00 Yes [id number] 300mg Q.5D Take 1 capsule (300 mg total) by mouth 2 times daily as needed (pain). Brittany adams Trulicity 3 MG/0.5ML subcutaneou s Solution Pen-injecto r 2023-07 00:00: 00 11-15 00:00 :00 No [id number] 3mg Q1W Inject 3 mg into the skin once a week. Brittany adams Gabapentin 300 MG oral Capsule 04-07 00:00: 00 05-17 00:00 :00 No [id number] 300mg Q.5D Take 1 capsule (300 mg total) by mouth 2 times daily as needed (pain). Brittany adams Insulin Glargine (Basaglar KwikPen) 100 UNIT/ML subcutaneou s Solution Pen-injecto r 03-30 00:00: 00 Yes [id number] 15U Inject 15 units into the skin at bedtime. Brittany adams Insulin Pen Needle (Pen [place]) 32G X 4 MM does not apply Misc 03-30 00:00: 00 Yes [id number] 1{each} Q.5D 1 each by does not apply route 2 times daily. Brittany adams Atorvastati michelet Calcium (Lipitor) 10 MG oral Tablet 2024-0 9-04 00:00: 00 Yes [id number] 10mg QD Take 1 tablet (10 mg total) by mouth nightly. Brittany adams Gabapentin 100 MG oral Capsule 03-24 00:00: 00 Yes [id number] 100mg Q.5D Take 1 capsule (100 mg total) by mouth 2 times daily as needed (pain). Brittany adams [place]-3-aci d Ethyl Esters 1 g oral Capsule 03-24 00:00: 00 Yes [id number] 1g QD Take 1 capsule (1 g total) by mouth daily. Brittany adams Insulin Glargine (Basaglar KwikPen) 100 UNIT/ML subcutaneou s Solution Pen-injecto r 03-24 00:00: 00 Yes [id number] 15U Inject 15 units into the skin at bedtime Inject 10 units once daily subcutaneo usly. Brittany adams Metformin HCl 1000 MG oral Tablet 03-24 00:00: 00 Yes [id number] 1000mg Take 1 tablet (1,000 mg total) by mouth in the morning and 1 tablet (1,000 mg total) in the evening. Take with meals. Brittany adams Trulicity 1.5 MG/0.5ML subcutaneou s Solution Pen-injecto r 03-24 00:00: 00 05-17 00:00 :00 No [id number] 1.5mg Q1W Inject 1.5 mg into the skin once a week. Brittany adams Tadalafil 5 MG oral Tablet 03-24 00:00: 00 05-17 00:00 :00 No [id number] 5mg QD Take 1 tablet (5 mg total) by mouth daily as needed for erectile dysfunctio n. Brittany adams [place]-3-aci d Ethyl Esters 1 g oral Capsule 2022-07 00:00: 00 03-24 00:00 :00 No 1g QD Take 1 capsule (1 g total) by mouth daily. Brittany adams [place]-3-aci d Ethyl Esters 1 g oral Capsule 2022-07 0 00:00: 00 Yes 1g Take 1 capsule (1 g total) by mouth 3 times daily. Brittany adams Blood Glucose Monitoring Suppl (Blood Glucose Monitor System) w/Device does not apply Kit 2022-07 0 00:00: 00 Yes [id number] Check blood sugar before breakfast and at bedtime. Brittany adams Glucose Blood in vitro Strip 2022-07 00:00: 00 Yes [id number] 2{each} Q.5D 2 each by other route 2 times daily. Brittany adams Metformin HCl 1000 MG oral Tablet 2022-07 00:00: 00 03-24 00:00 :00 No [id number] 1000mg Take 1 tablet (1,000 mg total) by mouth in the morning and 1 tablet (1,000 mg total) in the evening. Take with meals. Brittany adams Trulicity 0.75 MG/0.5ML subcutaneou s Solution Pen-injecto r 2022-07 00:00: 00 03-24 00:00 :00 No [id number] .75mg Q1W Inject 0.75 mg into the skin once a week. Brittany adams Insulin Glargine (Basaglar KwikPen) 100 UNIT/ML subcutaneou s Solution Pen-injecto r 2022-07 00:00: 00 03-24 00:00 :00 No [id number] Inject 10 units once daily subcutaneo usly. Brittany adams [place] 3 1000 MG oral Capsule 03-10 00:00: 00 Yes [id number] 1{capsu le} Take 1 capsule by mouth 3 times daily Brittany adams [place]-3-aci d Ethyl Esters 1 g oral Capsule 03-10 00:00: 00 Yes Brittany adams Metformin HCl 1000 MG oral Tablet 8-14 00:00: 00 04-28 00:00 :00 No [id number] 1000mg Take 1 tablet (1,000 mg total) [...] blood pressure 2023-06-01 14:05:00 60 mm[Hg] Brittany Seybo ld - External Heart rate 2023-06-01 [...] blood pressure 2023-04-28 13:28:00 64 mm[Hg] Brittany Meredithybo ld - External Heart rate 2023-04-28 13:28:00 78 /min Logan y Seybold - External Body temperature 2023-04-28 13:28:00 36.61 Shabnam Brittany Meredithybold - External Respiratory rate 2023-04-28 13:28:00 20 /min Brittany Meredithybold - External Body height 2023-04-28 13:28:00 177.8 cm Annie ey Seybold - External Body weight 2023-04-28 13:28:00 114.817 kg Annie ey Seybold - External BMI 2023-04-28 13:28:00 36.32 kg/m2 nAnie ey Seybold - External Oxygen saturation in Arterial blood by Pulse oximetry 2023-04-28 13:28:00 98 /min Brittany Moscoso ld - External Encounters Start Date/Time End Date/Time Encounter Type Admission Type Attending [facility] Care Department Encounter ID Source 2025-03-22 00:00:00 2025-03-22 00:00:00 Outpatient MARLO DAN [id number] Brittany donaldo 2025-02-19 00:00:00 2025-02-19 00:00:00 Outpatient MARLO DAN [id number] Brittany Brooks 2025-02-07 00:00:00 2025-02-07 00:00:00 Outpatient MARLO DAN [id number] Brittany Brooks 2024-12-27 08:45:00 2024-12-27 08:45:00 Outpatient MARLO DAN [id number] Brittany Brooks 2024-12-22 00:00:00 2024-12-22 00:00:00 Outpatient PREZAS, MARLO BEARD BRITTANY [id number] Brittany Meredithshiva 2024-11-29 08:30:00 2024-11-29 08:30:00 Outpatient DIPAKABIEL [facility] [id number] [facility]24-[facility]-20 00:00:00 2024-11-20 00:00:00 Outpatient PREZAS, MARLO BEARD BRITTANY [id number] Brittany [facility] 2024-11-17 00:00:00 2024-11-17 00:00:00 Outpatient PREZAS, MARLO BEARD BRITTANY [id number] Brittany [facility] 2024-11-15 09:15:00 2024-11-15 09:15:00 Outpatient [id number] BRITTANY BRITTANY [id number] Brittany [facility] 2024-11-15 08:45:00 2024-11-15 08:45:00 Outpatient PREZAS, MARLO BEARD BRITTANY [id number] Brittany [facility] 2024-10-18 00:00:00 2024-10-18 00:00:00 Outpatient PREZAS, MARLO BRITTANY BRITTANY [id number] [facility]24-[facility]-05 00:00:00 2024-09-05 00:00:00 Outpatient PREZAS, MARLO BRITTANY BEARD [id number] Brittany [facility] 2024-08-21 10:45:00 2024-08-21 10:45:00 Outpatient PREZAS, MARLO BRITTANY BRITTANY [id number] Brittany [facility] 2024-08-16 10:00:00 2024-08-16 10:00:00 Outpatient PREZAS, MARLO BRITTANY BEARD [id number] [facility]24-07-05 10:00:00 2024-07-05 10:00:00 Outpatient PREZAS, MARLO BRITTANY BEARD [id number] [facility] 2024-07-02 00:00:00 2024-07-02 00:00:00 Outpatient PREZAS, MARLO BRITTANY BEARD [id number] [facility] 2024-05-31 08:15:00 2024-05-31 08:15:00 Outpatient DIPAK, ABIEL BEARD BRITTANY [id number] Brittany Meredithybshiva 2024-05-17 16:30:00 2024-05-17 16:30:00 Outpatient PREZAS, MARLO BRITTANY BEARD [id number] Brittany Meredithy[facility]iva 2024-05-11 09:15:00 2024-05-11 09:15:00 Outpatient PREZAS, MARLO BRITTANY BEARD [id number] Brittany Meredithy[facility]iva 2024-04-07 08:15:00 2024-04-07 08:15:00 Outpatient DIPAK, ABIEL CHENEYERNESTO BEARD [id number] Brittany [facility] 2024-04-07 00:00:00 2024-04-07 00:00:00 Outpatient PREZAS, MARLO BRITTANY BEARD [id number] Brittany Brooks 2024-04-07 00:00:00 2024-04-07 00:00:00 Outpatient PREZAS, MARLO BRITTANY BEARD [id number] [facility] 2024-04-06 08:15:00 2024-04-06 08:15:00 Outpatient DIPAK, ABIEL BRITTANY BEARD [id number] [facility] 2024-03-30 00:00:00 2024-03-30 00:00:00 Outpatient PREZAS, MARLO BRITTANY BEARD [id number] [facility] 2024-03-29 00:00:00 2024-03-29 00:00:00 Outpatient PREZAS, MARLO BRITTANY BEARD [id number] [facility] 2024-03-24 15:50:00 2024-03-24 15:50:00 Outpatient LABKiah BEARD [id number] Brittany Seybold 2024-03-24 15:00:00 2024-03-24 15:00:00 Outpatient PREZAS, MARLO BRITTANY BEARD [id number] [facility] 2024-03-24 00:00:00 2024-03-24 00:00:00 Outpatient PREZAS, MARLO BEARD [id number] [facility] 2024-03-02 00:00:00 2024-03-02 00:00:00 Outpatient MARLO DAN BRITTANY [id number] Britt[facility] 2023-09-12 00:00:00 2023-09-12 00:00:00 Outpatient TONI HENRY BRITTANY [id number] Britt[facility] 2023-09-01 08:00:00 2023-09-01 08:00:00 Outpatient TONI HENRY BRITTANY [id number] Britt[facility] 2023-08-20 00:00:00 2023-08-20 00:00:00 Outpatient TONI HENRY BRITTANY [id number] Brittany [facility] 2023-08-12 00:00:00 2023-08-12 00:00:00 Outpatient TONI HENRY BRITTANY [id number] Brittany [facility] 2023-06-09 00:00:00 2023-06-09 00:00:00 Outpatient TONI HENRY BRITTANY [id number] [facility] 2023-06-02 00:00:00 2023-06-02 00:00:00 Outpatient TONI HENRY BRITTANY [id number] Brittany [facility] 2023-06-01 08:45:00 2023-06-01 08:45:00 Outpatient LABKiah BEARD BRITTANY [id number] [facility] 2023-06-01 08:00:00 2023-06-01 08:00:00 Outpatient TONI HENRYERNESTO BEARD [id number] [facility] 2023-05-31 08:30:00 2023-05-31 08:30:00 Outpatient TONI HENRYERNESTO BEARD [id number] [facility] 2023-05-10 00:00:00 2023-05-10 00:00:00 Outpatient TONI HENRY BRITTANY BEARD [id number] [facility] 2023-04-28 09:15:00 2023-04-28 09:15:00 Outpatient LAB90 BRITTANY BEARD [id number] [facility] 2023-04-28 08:30:00 2023-04-28 08:30:00 Outpatient TONI HENRY BRITTANY [id number] [facility] 2023-04-08 00:00:00 2023-04-08 00:00:00 Outpatient TONI HENRY BRITTANY [id number] [facility] 2023-04-08 00:00:00 2023-04-08 00:00:00 Outpatient MARLO DAN BRITTANY [id number] [facility] 2023-03-18 10:00:00 2023-03-18 10:00:00 Outpatient TONI HENRY BRITTANY [id number] Britt[facility] 2023-03-09 00:00:00 2023-03-09 00:00:00 Outpatient TONI HENRY BRITTANY [id number] Britt[facility] 2023-03-08 11:10:00 2023-03-08 11:10:00 Outpatient LAB90 BRITTANY BEARD [id number] [facility] 2023-03-08 10:00:00 2023-03-08 10:00:00 Outpatient TONI HENRY BRITTANY [id number] Britt[facility] 2023-03-04 16:30:00 2023-03-04 16:30:00 Outpatient TONI HENRY BRITTANY [id number] Britt[facility] 2023-03-04 14:30:00 2023-03-04 14:30:00 Outpatient TONI HENRY BRITTANY BEARD [id number] [facility] Notes Date/Time Note Provider Source 2024-11-15 08:46:34 Chief Complaint Patient presents with Diabetes 3 month follow up REFILLS-NURSE/MD Medication refill Corine Vines MA [facility]
[2025-05-03] MEDS ORDERED: ONDANSETRON 4 MG/2 ML VIAL ONE ×2 (08:30→09:53)
[2025-05-03] MEDS ORDERED: NA CHLORIDE 0.9% 1,000 ML ONE (08:30)
[2025-05-03 08:54] LABS: Absolute Lymphocytes (CBC) 1.7 K/uL (0.7-4.9); Hematocrit 46.5 % (39.6-49.0); Hemoglobin 15.8 g/dL (13.6-17.9); MCH 29.8 pg (27.0-35.0); MCHC 33.9 g/dL (32.0-36.0); MCV 87.8 fL (80-100); MPV 9.0 fL (7.6-11.3); Nucleated RBC Absolute Count 0.0 (0-0); Nucleated Red Blood Cells % 0.0 % (0-0); RBC Red Blood Cell Count 5.30 M/uL (4.33-5.43); White Blood Count 13.20 thou/uL (4.3-10.9)
[2025-05-03 08:57] LABS: ALT/SGPT 31.0 U/L (16-61); AST/SGOT 14.0 U/L (15-37); Albumin 3.7 g/dL (3.4-5.0); Albumin/Globulin Ratio 0.9 (1.1-1.8); Alkaline Phosphatase 58.0 U/L (45-117); Anion Gap 11.0 mEq/L (5.0-15.0); BUN Blood Urea Nitrogen 19.0 mg/dL (7-18); Globulin 4.1 g/dL (2.3-3.5); Glucose Level 243.0 mg/dL (74-106); Lipase 15.0 U/L (13-75); Potassium 4.0 mEq/L (3.5-5.1)
--- NOTE | 2025-05-03 10:29 | ER ---
Nurse's Notes [facility] Name: Jose Carlos Trammell Age: 49 yrs Sex: Male : 1975 Arrival Date: 05/03/2025 Time: 08:09 Bed 14 Private MD: Diagnosis: Nausea with vomiting, unspecified;Diabetes mellitus due to underlying condition with hyperglycemia Presentation: 05/03 08:33 Chief complaint: Patient states: vomiting since yesterday , feeling weak and dizzy, no iw diarrhea, no abd pain. Coronavirus screen: At this time, the client does not indicate any symptoms associated with coronavirus-19. Ebola Screen: No symptoms or risks identified at this time. Risk Assessment: Do you want to hurt yourself or someone else? Patient reports no desire to harm self or others. 08:33 Method Of Arrival: Ambulatory iw 08:33 Acuity: EDILMA 3 iw 08:34 Initial Sepsis Screen: Does the patient meet any 2 criteria? No. Patient's initial iw sepsis screen is negative. Does the patient have a suspected source of infection? No. Patient's initial sepsis screen is negative. Onset of symptoms was May 03, 2025. Historical: - Allergies: 08:34 No Known Allergies; iw - PMHx: 08:34 Diabetes - NIDDM; iw - PSHx: 08:34 None; iw - Immunization history:: Adult Immunizations. - Infectious Disease History:: Denies. - Social history:: Smoking status: Patient/guardian denies using tobacco, the patient reports quitting approximately 1 years ago. Screenin:27 [facility] ED Fall Risk Assessment (Adult) History of falling in the last 3 months, db including since admission No falls in past 3 months (0 pts) Confusion or Disorientation No (0 pts) Intoxicated or Sedated No (0 pts) Impaired Gait No (0 pts) Mobility Assist Device Used No (0 pt) Altered Elimination No (0 pt) Score/Fall Risk Level 0 - 2 = Low Risk Oriented to surroundings, Maintained a safe environment. Abuse screen: Denies threats or abuse. Denies injuries from another. Nutritional screening: No deficits noted. Tuberculosis screening: No symptoms or risk factors identified. Assessment: 08:41 Reassessment: Patient appears in no apparent distress at this time. Patient and/or db family updated on plan of care and expected duration. Pain level reassessed. Patient is alert, oriented x 3, equal unlabored respirations, skin warm/dry/pink. General: Appears in no apparent distress. comfortable, Behavior is calm, cooperative. Neuro: Level of Consciousness is awake, alert, obeys commands, Oriented to person, place, time, situation. Respiratory: Airway is patent Respiratory effort is even, unlabored, Respiratory pattern is regular, symmetrical. GI: Abdomen is non-distended. 10:45 Reassessment: Patient appears in no apparent distress at this time. Patient and/or db family updated on plan of care and expected duration. Pain level reassessed. Patient is alert, oriented x 3, equal unlabored respirations, skin warm/dry/pink. Patient states feeling better. Patient states symptoms have improved. Pain: Denies pain. Vital Signs: 08:32 BP 133 / 73; Pulse 83; Resp 18; Pulse Ox 98% ; db 08:34 BP 140 / 81; Pulse 83; Resp 16; Temp 97.9; Pulse Ox 98% on R/A; Weight 108.86 kg; iw Height 5 ft. 11 in. ; Pain 0/10; 09:00 BP 137 / 74; Pulse 80; Resp 16; Pulse Ox 96% on R/A; db 10:00 BP 129 / 77; Pulse 75; Resp 16; Pulse Ox 96% on R/A; db 10:30 BP 140 / 92; Pulse 78; Resp 18; Pulse Ox 96% on R/A; db 08:34 Body Mass Index 33.47 (108.86 kg, 180.34 cm) iw 08:34 Pain Scale: Adult iw ED Course: 08:12 Patient arrived in ED. al6 08:14 Michael Gregory NP is PHCP. cr8 08:14 Bennie Yusuf DO is Attending Physician. cr8 08:27 Patient has correct armband on for positive identification. Bed in low position. Call db light in reach. Side rails up X 1. Pulse ox on. NIBP on. Warm blanket given. Pillow given. 08:27 Initial lab(s) drawn, by me, sent to lab. Inserted saline lock: 20 gauge in left db forearm, using aseptic technique. Blood collected. Flushed with 10 mL NS. 08:34 Triage completed. iw 08:35 Arm band placed on. iw 08:37 Sharron Raymond, RN is Primary Nurse. db 10:45 Provided Education on: DISCHARGE AND FOLLOWUP. db 10:45 No provider procedures requiring assistance completed. IV discontinued, intact, db bleeding controlled, No redness/swelling at site. Administered Medications: 08:32 Drug: NS 0.9% IV 1000 ml IV at 1000 ml once; to be given as a bolus over 60 minutes db Route: IV; Rate: 1000 ml; Site: left forearm; 10:00 Follow up: Response: No adverse reaction; IV Status: Completed infusion; IV Intake: db 1000ml 08:32 Drug: Ondansetron IVP 4 mg IVP once; over 2 minutes Route: IVP; Site: left forearm; db 10:00 Follow up: Response: No adverse reaction db 10:00 Drug: Ondansetron IVP 4 mg IVP once; over 2 minutes Route: IVP; Site: right antecubital;db 10:40 Follow up: Response: No adverse reaction db Medication: 08:27 VIS not applicable for this client. db Intake: 10:00 IV: 1000ml; Total: 1000ml. db Outcome: 10:29 Discharge ordered by MD. ferrara 10:45 Discharged to home ambulatory, db 10:45 Condition: stable 10:45 Discharge instructions given to Instructed on discharge instructions, follow up and referral plans. Prescriptions given X 1, 10:47 Patient left the ED. db Signatures: Otilia Garcia, RN JEREMIAS Sharron Raymond, RN RN db Katiana Zendejas al6 Michael Gregory NP [employer] cr8
--- NOTE | 2025-05-03 10:29 | EDPHYS ---
Physician Documentation [facility] Name: Jose Carlos Trammell Age: 49 yrs Sex: Male : 1975 Arrival Date: 05/03/2025 Time: 08:09 Bed 14 Private MD: ED Physician Bennie Yusuf HPI: 05/03 08:19 This 49 yrs old Male presents to ER via Ambulatory with complaints of Vomiting.cr8 08:19 Patient is a 49-year-old male with a history of diabetes that comes in emergency room cr8 complaining of nausea and vomiting since yesterday evening after work. States he is unable to keep anything down. Continues this morning. Denies any abdominal pain constipation diarrhea. Denies chest pain dyspnea fever or other symptoms. Takes metformin daily. Unknown blood sugar. Is having no back pain flank pain dysuria hematuria.. Historical: - Allergies: 08:34 No Known Allergies; iw - PMHx: 08:34 Diabetes - NIDDM; iw - PSHx: 08:34 None; iw - Immunization history:: Adult Immunizations. - Infectious Disease History:: Denies. - Social history:: Smoking status: Patient/guardian denies using tobacco, the patient reports quitting approximately 1 years ago. ROS: 08:19 Constitutional: as per HPI cr8 Exam: 08:19 Cardiovascular: Regular rate and rhythm with a normal S1 and S2. No gallops, murmurs, cr8 or rubs. Respiratory: Lungs have equal breath sounds bilaterally, clear to auscultation. No rales, rhonchi or wheezes noted. No increased work of breathing. Abdomen/GI: Soft, non-tender, with normal bowel sounds. No distension. No guarding or rebound. Skin: Warm, dry with normal turgor. Normal color with no rashes, no lesions, and no evidence of cellulitis. Neuro: Awake and alert, GCS 15, oriented to person, place, time, and situation. Cranial nerves II-XII grossly intact. Motor strength 5/5 in all extremities. Sensory grossly intact. 08:19 Constitutional: This is a well developed, well nourished patient who is awake, alert, and in no acute distress. Distal pulses are intact, mucous membranes are moist, abdomen soft nontender. 08:19 Constitutional: The patient appears in no acute distress, alert, awake, Vital Signs: 08:32 BP 133 / 73; Pulse 83; Resp 18; Pulse Ox 98% ; db 08:34 BP 140 / 81; Pulse 83; Resp 16; Temp 97.9; Pulse Ox 98% on R/A; Weight 108.86 kg; iw Height 5 ft. 11 in. ; Pain 0/10; 09:00 BP 137 / 74; Pulse 80; Resp 16; Pulse Ox 96% on R/A; db 10:00 BP 129 / 77; Pulse 75; Resp 16; Pulse Ox 96% on R/A; db 10:30 BP 140 / 92; Pulse 78; Resp 18; Pulse Ox 96% on R/A; db 08:34 Body Mass Index 33.47 (108.86 kg, 180.34 cm) iw 08:34 Pain Scale: Adult iw MDM: 08:19 Medical Screening Exam initiated cr8 10:24 Data reviewed: vital signs, nurses notes, lab test result(s), amylase and lipase, CBC, cr8 electrolytes. I considered the following discharge prescriptions or medication management in the emergency department Medications were administered in the Emergency Department. See MAR. Test considered but Not performed: CT: CT not done because patient is having no abdominal pain, no abdominal tenderness on palpation no distention. Counseling: I had a detailed discussion with the patient and/or guardian regarding the historical points, exam findings, and any diagnostic results supporting the discharge/admit diagnosis, lab results, to return to the emergency department if symptoms worsen or persist or if there are any questions or concerns that arise at home. Medication response: Zofran relieved the patient's nausea. Response to treatment: the patient's symptoms have resolved after treatment. 10:27 ED course: Considered but low risk for SBO (normal BM, passing flatus, no abdominal cr8 surgeries), no signs of DKA in labs. Patient BMP with normal electrolytes and no sign of dehydration causing prerenal MACK. Low suspicion for gastric or esophageal dysmotility as cause. Based on history, exam, and work up low suspicion for pancreatitis, appendicitis, biliary pathology, or other emergent problem. Did consider acute coronary syndrome but patient has no pain dyspnea associated diaphoresis so low likelihood given presentation. Considered doing a CT of abdomen pelvis but given that the patient is having no pain on palpation it would be low yield. Patient's presentation is consistent with likely a virus or food poisoning. Patient given zofran and tolerated PO here. Patient to be discharged with zofran and to follow up with PMD.. 05/03 08:19 Order name: CBC with Diff; Complete Time: 08:59 cr8 05/03 08:19 Order name: CMP; Complete Time: 08:59 cr8 05/03 08:19 Order name: Lipase; Complete Time: 08:59 cr8 05/03 08:19 Order name: IV Saline Lock; Complete Time: 08:53 cr8 Administered Medications: 08:32 Drug: NS 0.9% IV 1000 ml IV at 1000 ml once; to be given as a bolus over 60 minutes db Route: IV; Rate: 1000 ml; Site: left forearm; 10:00 Follow up: Response: No adverse reaction; IV Status: Completed infusion; IV Intake: db 1000ml 08:32 Drug: Ondansetron IVP 4 mg IVP once; over 2 minutes Route: IVP; Site: left forearm; db 10:00 Follow up: Response: No adverse reaction db 10:00 Drug: Ondansetron IVP 4 mg IVP once; over 2 minutes Route: IVP; Site: right antecubital;db 10:40 Follow up: Response: No adverse reaction db Disposition: 10:16 I was immediately available on-site in the Emergency Department for consultation in the ms3 care of the patient. Disposition Summary: 05/03/25 10:29 Discharge Ordered Notes: Location: Home cr8 Condition: Stable cr8 Diagnosis - Nausea with vomiting, unspecified cr8 - Diabetes mellitus due to underlying condition with hyperglycemia cr8 Followup: cr8 - With: Private Physician - When: 2 - 3 days - Reason: Recheck today's complaints, Continuance of care, Re-evaluation by your physician Followup: cr8 - With: Emergency Department - When: As needed - Reason: Fever > 102 F, Trouble breathing, Worsening of condition Discharge Instructions: - Discharge Summary Sheet cr8 - Hyperglycemia cr8 - Nausea and Vomiting, Adult cr8 Forms: - Medication Reconciliation Form cr8 - Patient Portal Instructions cr8 - Leadership Thank You Letter cr8 Prescriptions: - Zofran 4 mg Oral tablet - take 1 tablet ORAL route every 6 hours As needed; 20 tablet; Refills: 0, cr8 Product Selection Permitted Signatures: Dispatcher [employer] Otilia Gavin RN RN Bennie Flores DO DO ms3 Sharron Raymond, RN RN db Michael Gregory, DIGITAL MARKETING INTERN DIGITAL MARKETING INTERN cr8 Corrections: (The following items were deleted from the chart) 08:20 08:20 CBC+H.LAB.BRZ ordered. EDMS EDMS 08:20 08:20 COMPREHENSIVE METABOLIC PANEL+C.LAB.BRZ ordered. EDMS EDMS 08:20 08:20 LIPASE+C.LAB.BRZ ordered. EDMS EDMS 12:53 10:27 ED course: Considered but low risk for SBO (normal BM, passing flatus, no cr8 abdominal surgeries), no signs of DKA in labs. Patient BMP with normal electrolytes and no sign of dehydration causing prerenal MACK. Low suspicion for gastric or esophageal dysmotility as cause. Based on history, exam, and work up low suspicion for pancreatitis, appendicitis, biliary pathology, or other emergent problem. Patient given zofran and tolerated PO here. Patient to be discharged with zofran and to follow up with PMD.. cr8
[2025-05-03 11:02] VITALS: TEMP 97.9
[2025-05-03 11:04] VITALS: O2SAT 96
[2025-05-03 11:05] VITALS: BP 129/77
== END 2025-05-03 10:47 | disposition home or self-care (01) ==
LOC: ER 08:09
DX: R11.2 Nausea with vomiting, unspecified (principal); E08.65 Diabetes mellitus due to underlying condition with hyperglycemia
CPT/HCPCS: 85025; 36415; 83690; 80053; 99284; J2405 ×2; J7030

== ENCOUNTER 2025-05-05 20:52 | Observation (INO) | payer OTHER ==
--- OUTSIDE RECORDS SUMMARY | 2025-05-05 20:55 | XMS REPORT | Continuity of Care Document ---
Author Name Unknown Address [address] [place] [address] [address] [place] [address] [facility] Address [address] [facility] [address] [place] [address] Care Team Providers Care Physics Department Chair Name Role Phone MARLO DAN Attending Clinician Unavailable ABIEL QUESADA Attending Clinician Unavaila ble [id number] Attending Clinician Unavailable ABIEL QUESADA Attending Clinician Unavailabl e [id number] Attending Clinician Unavailable TONI HENRY Attending Clinician Unavailab le Payers Payer Name Policy Type Policy Number Effective Date Expirati on Date Source [facility] [employer]OC[employer] 9 [id number] 2024 00:00:00 [employer] O [employer] 94 ON 9 [id number] 2023 00:00:00 Problems Condition Name Condition Details Condition Category Status Onset Date Resolution Date Last Treatment Date Treating Clinician Comments Source Scrotal pain Scrotal pain Disease Active 11-15 00:00: 00 Brittany Terry Externa bryan Callus of toe Callus of toe Disease Active 11-15 00:00: 00 Brittany Terry Externa bryan Abscess of scrotum Abscess of scrotum Disease Active 2023-07 00:00: 00 Brittany Terry Externa bryan Erectile dysfunctio n Erectile dysfunctio n Disease Active 03-24 00:00: 00 Brittany Terry Externa l Cellulitis of left lower extremity Cellulitis of left lower extremity Disease Active 03-24 00:00: 00 Brittany Terry Externa bryan Well adult exam Well adult exam Disease Active 03-24 00:00: 00 Brittany Terry Externa bryan Type 2 diabetes mellitus with hyperlipid emia (multi HCC) Type 2 diabetes mellitus with hyperlipid emia (multi HCC) Disease Active 2022-07 00:00: 00 Brittany adams 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) Disease Active 2022-07 00:00: 00 Brittany adams Class 1 obesity due to excess calories [...] Smoker Brittany shannon - External Sexual orientation Antwon batres Todd - External Alcoholic beverage intake 2024-11-15 00:00:00 2024-11-15 00:00:00 .29 /d Brittany Brooks - External Cigarettes smoked current (pack per day) - Reported 2024-03-24 00:00:00 2024-03-24 00:00:00 Brittany Brooks - External Tobacco use and exposure 2024-03-24 00:00:00 2024-03-24 00:00:00 Smokeless tobacco non-user Brittany Brooks - External History of Social function 2024-03-24 00:00:00 2024-03-24 00:00:00 Brittany Terry External Alcohol Comment 2024-03-24 00:00:00 2024-03-24 00:00:00 quit 4 years ago Brittany Terry External Cigarette pack-years 2024-03-24 00:00:00 2024-03-24 00:00:00 Brittany Brooks - External Tobacco Comment 2024-03-24 00:00:00 2024-03-24 00:00:00 Quit 4 months ago. He was smoking 1.5 ppd for 20 years. Brittany Brooks - External Alcohol intake 2023-06-01 00:00:00 2023-06-01 00:00:00 .29 /d Brittany Anashiva - External Education 2023-03-08 00:00:00 2023-03-08 00:00:00 14 Brittany Brooks - External Sex 2022-10-14 21:30:30 2022-10-14 21:30:30 Male (finding) Brittany Brooks - External Sex [birth year] at 1975 00:00:1975 00:00:00 Brittany Brooks - External Smoking Status Start Date Stop Date Source Ex-smoker 2024-03-24 00:00:00 2024-03-24 00:00:00 Antwon batres Senoshiva - External Smokes tobacco daily 2023-03-08 00:00:00 Brittany Senoshiva - External Medications Ordered Medication Name Filled Medication Name Start Date Stop Date Current Medication? Ordering Clinician Indication Dosage Frequency Signature (SIG) Comments Components Source Dulaglutide 4.5 MG/0.5ML subcutaneou s Solution Auto-inject or 11-15 00:00: 00 Yes [id number] 4.5mg Q1W Inject 4.5 mg into the skin once a week. Brittany adams Insulin Glargine (Basaglar KwikPen) 100 UNIT/ML subcutaneou s Solution Pen-injecto r 11-15 00:00: 00 Yes [id number] 20U QD Inject 20 units into the [...] subcutaneou s Solution Pen-injecto r 10-24 00:00: 11-15 00:00 :00 No [id number] 15U QD Inject 15 units into the skin daily (with breakfast) . Brittany adams Trulicity 3 MG/0.5ML subcutaneou s Solution Pen-injecto r 2023-07 00:00: 00 Yes [id number] 3mg Q1W Inject 3 mg into the skin once a week. Brittany adams Tadalafil 20 MG oral Tablet 2023-07 00:00: 00 Yes [id number] 20mg QD Take 1 tablet (20 mg total) by mouth daily as needed for erectile dysfunctio n. Brittany adams Gabapentin 300 MG oral Capsule 2023-07 00:00: 00 Yes [id number] 300mg Q.5D Take 1 capsule (300 mg total) by mouth 2 times daily as needed (pain). Brittany adams Trulicity 3 MG/0.5ML subcutaneou s Solution Pen-injecto r 2023-07 00:00: 00 11-15 00:00 :00 No [id number] 3mg Q1W Inject 3 mg into the skin once a week. Brittany adams Gabapentin 300 MG oral Capsule 04-07 00:00: 00 05-17 00:00 :00 No [id number] 300mg Q.5D Take 1 capsule (300 mg total) by mouth 2 times daily as needed (pain). Brittany adams Insulin Glargine (Basaglar KwikPen) 100 UNIT/ML subcutaneou s Solution Pen-injecto r 03-30 00:00: 00 Yes [id number] 15U Inject 15 units into the skin at bedtime. Brittany adams Insulin Pen Needle (Pen [place]) 32G X 4 MM [facility] not [facility] 03-30 00:00: 00 Yes [id number] 1{each} Q.5D 1 each by does not apply route 2 times daily. Brittany adams Atorvastati michelet Calcium (Lipitor) 10 MG oral Tablet 03-29 00:00: 00 Yes [id number] 10mg QD Take 1 tablet (10 mg total) by mouth nightly. Brittany adams Gabapentin 100 MG oral Capsule 03-24 00:00: 00 Yes [id number] 100mg Q.5D Take 1 capsule (100 mg total) by mouth 2 times daily as needed (pain). Brittany adams [place]-3-aci d Ethyl Esters 1 g oral Capsule 03-24 00:00: 00 Yes [id number] 1g QD Take 1 capsule (1 g total) by mouth daily. Brittany adams Insulin Glargine (Basaglar KwikPen) 100 UNIT/ML subcutaneou s Solution Pen-injecto r 03-24 00:00: 00 Yes [id number] 15U Inject 15 units into the skin at bedtime Inject 10 units once daily subcutaneo usly. Brittany adams Metformin HCl 1000 MG oral Tablet 03-24 00:00: 00 Yes [id number] 1000mg Take 1 tablet (1,000 mg total) by mouth in the morning and 1 tablet (1,000 mg total) in the evening. Take with meals. Brittany adams Trulicity 1.5 MG/0.5ML subcutaneou s Solution Pen-injecto r 03-24 00:00: 00 05-17 00:00 :00 No [id number] 1.5mg Q1W Inject 1.5 mg into the skin once a week. Brittany adams Tadalafil 5 MG oral Tablet 03-24 00:00: 00 05-17 00:00 :00 No [id number] 5mg QD Take 1 tablet (5 mg total) by mouth daily as needed for erectile dysfunctio n. Brittany adams [place]-3-aci d Ethyl Esters 1 g oral Capsule 2022-07 1-15 00:00: 00 03-24 00:00 :00 No 1g QD Take 1 capsule (1 g total) by mouth daily. Brittany adams [place]-3-aci d Ethyl Esters 1 g oral Capsule 2022-07 0 00:00: 00 Yes 1g Take 1 capsule (1 g total) by mouth 3 times daily. Brittany adams Blood Glucose Monitoring Suppl (Blood Glucose Monitor System) w/Device does not apply Kit 2022-07 0 00:00: 00 Yes [id number] Check blood sugar before breakfast and at bedtime. Brittany adams Glucose Blood in vitro Strip 2022-07 00:00: 00 Yes [id number] 2{each} Q.5D 2 each by other route 2 times daily. Brittany adams Metformin HCl 1000 MG oral Tablet 2022-07 00:00: 00 03-24 00:00 :00 No [id number] 1000mg Take 1 tablet (1,000 mg total) by mouth in the morning and 1 tablet (1,000 mg total) in the evening. Take with meals. Brittany adams Trulicity 0.75 MG/0.5ML subcutaneou s Solution Pen-injecto r 2022-07 00:00: 00 03-24 00:00 :00 No [id number] .75mg Q1W Inject 0.75 mg into the skin once a week. Brittany adams Insulin Glargine (Basaglar KwikPen) 100 UNIT/ML subcutaneou s Solution Pen-injecto r 2022-07 00:00: 00 03-24 00:00 :00 No [id number] Inject 10 units once daily subcutaneo usly. Brittany adams [place] 3 1000 MG oral Capsule 03-10 00:00: 00 Yes [id number] 1{capsu le} Take 1 capsule by mouth 3 times daily Brittany adams [place]-3-aci d Ethyl Esters 1 g oral Capsule 03-10 00:00: 00 Yes Brittany adams Metformin HCl 1000 MG oral Tablet 14 00:00: 00 04-28 00:00 :00 No [id number] 1000mg Take 1 tablet (1,000 mg total) by mouth in the morning and 1 tablet (1,000 mg total) in the evening. Take with meals. Brittanyernesto Perezold - Externa l Immunizations Ordered Immunization Name Filled Immunization Name Date Status Comments Source Tdap- (Boostrix, Adacel) Unknown Completed Brittany Meredithybold - External Tdap- (Boostrix, Adacel) Unknown Completed Brittany Meredithybold - External Tdap- (Boostrix, Adacel) Unknown Completed Brittany Meredithybold - External Tdap- (Boostrix, Adacel) Unknown Completed Brittany Seybold - External Tdap- (Boostrix, Adacel) Unknown Completed Brittany Meredithybold - External Vital Signs Vital Name Observation Time Observation Value Comments S ource Systolic blood pressure 2024-11-15 13:42:00 124 mm[Hg] Brittany Meredithybo ld - External Diastolic blood pressure 2024-11-15 13:42:00 68 mm[Hg] Brittany Meredithybo ld - External Heart rate 2024-11-15 13:42:00 68 /min Jasonse y Seybold - External Body temperature 2024-11-15 13:42:00 36.11 Shabnam Brittany Meredithybold - External Respiratory rate 2024-11-15 13:42:00 16 /min Brittany Meredithybold - External Body height 2024-11-15 13:42:00 177.8 cm Annie manuel Seybold - External Body weight 2024-11-15 13:42:00 109.952 [...] External Heart rate 2024-05-17 21:30:00 64 /min Kelse y Seybold - External Body temperature 2024-05-17 [...] Pulse oximetry 2023-06-01 14:05:00 97 /min Brittany Moscoso ld - External Systolic blood pressure 2023-04-28 [...] Body height 2023-04-28 13:28:00 177.8 cm Annie manuel Seybold - External Body weight 2023-04-28 13:28:00 114.817 kg Annie ey Seybold - External BMI 2023-04-28 13:28:00 36.32 kg/m2 Annie manuel Seybold - External Oxygen saturation in Arterial blood by Pulse oximetry 2023-04-28 13:28:00 98 /min Brittany Moscoso ld - External Encounters Start Date/Time End Date/Time Encounter Type Admission Type Attending [facility] Care Department Encounter ID Source 2025-03-22 00:00:00 2025-03-22 00:00:00 Outpatient MARLO DAN [id number] Brittany donaldo 2025-02-19 00:00:00 2025-02-19 00:00:00 Outpatient MARLO DAN [id number] Brittany Brooks 2025-02-07 00:00:00 2025-02-07 00:00:00 Outpatient MARLO DAN [id number] Brittany Brooks 2024-12-27 08:45:00 2024-12-27 08:45:00 Outpatient MARLO DAN [id number] Brittany Meredithshiva 2024-12-22 00:00:00 2024-12-22 00:00:00 Outpatient PREZAS, MARLO BEARD BRITTANY [id number] Brittany Brooks 2024-11-29 08:30:00 2024-11-29 08:30:00 Outpatient DIPAKABIEL BRITTANY [id number] Brittany Merdeithshiva 2024-11-20 00:00:00 2024-11-20 00:00:00 Outpatient PREZAS, MARLO BEARD [facility]ITTANY [id number] [facility] 2024-11-17 00:00:00 2024-11-17 00:00:00 Outpatient PREZAS, MARLO BEARD BRITTANY [id number] [facility] 2024-11-15 09:15:00 2024-11-15 09:15:00 Outpatient HYE240 BRITTANY BRITTANY [id number] [facility] 2024-11-15 08:45:00 2024-11-15 08:45:00 Outpatient PREZAS, MARLO BEARD BRITTANY [id number] Brittany [facility] 2024-10-18 00:00:00 2024-10-18 00:00:00 Outpatient PREZAS, MARLO BEARD BRITTANY [id number] Brittany [facility] 2024-09-05 00:00:00 2024-09-05 00:00:00 Outpatient PREZAS, MARLO BRITTANY BEARD [id number] [facility] 2024-08-21 10:45:00 2024-08-21 10:45:00 Outpatient PREZAS, MARLO BRITTANY BRITTANY [id number] Brittany [facility] 2024-08-16 10:00:00 2024-08-16 10:00:00 Outpatient PREZAS, MARLO BRITTANY BEARD [id number] Brittany [facility] 2024-07-05 10:00:00 2024-07-05 10:00:00 Outpatient PREZAS, MARLO BRITTANY BEARD [id number] Brittany [facility] 2024-07-02 00:00:00 2024-07-02 00:00:00 Outpatient PREZAS, MARLO BRITTANY BEARD [id number] [facility] 2024-05-31 08:15:00 2024-05-31 08:15:00 Outpatient DIPAK, ABIEL BEARD BRITTANY [id number] Brittany Meredithybshiva 2024-05-17 16:30:00 2024-05-17 16:30:00 Outpatient PREZAS, MARLO BEARD BRITTANY [id number] Brittany Meredithybshiva 2024-05-11 09:15:00 2024-05-11 09:15:00 Outpatient PREZAS, MAROL BEARD BRITTANY [id number] Brittany Meredithyb[facility]iva 2024-04-07 08:15:00 2024-04-07 08:15:00 Outpatient DIPAK, ABIEL BEARD BRITTANY [id number] Brittany Meredithybshiva 2024-04-07 00:00:00 2024-04-07 00:00:00 Outpatient PREZAS, MARLO BRITTANY BEARD [id number] Brittany Meredithybshiva 2024-04-07 00:00:00 2024-04-07 00:00:00 Outpatient PREZAS, MARLO BRITTANY BEARD [id number] [facility] 2024-04-06 08:15:00 2024-04-06 08:15:00 Outpatient DIPAK, ABIEL BEARD BRITTANY [id number] [facility] 2024-03-30 00:00:00 2024-03-30 00:00:00 Outpatient PREZAS, MARLO BRITTANY BEARD [id number] Brittany Meredithybshiva 2024-03-29 00:00:00 2024-03-29 00:00:00 Outpatient PREZAS, MARLO BRITTANY BEARD [id number] [facility] 2024-03-24 15:50:00 2024-03-24 15:50:00 Outpatient LABKiah BEARD [id number] Brittany Seybold 2024-03-24 15:00:00 2024-03-24 15:00:00 Outpatient PREZAS, MARLO BRITTANY BEARD [id number] Brittany Seybold 2024-03-24 00:00:00 2024-03-24 00:00:00 Outpatient PREZAS, [facility] [id number] [facility] 2024-03-02 00:00:00 2024-03-02 00:00:00 Outpatient MARLO DANERNESTO BEARD [id number] Brittany [facility] 2023-09-12 00:00:00 2023-09-12 00:00:00 Outpatient TONI HENRY BRITTANY [id number] Brittany [facility] 2023-09-01 08:00:00 2023-09-01 08:00:00 Outpatient TONI HENRY BRITTANY [id number] Brittany [facility] 2023-08-20 00:00:00 2023-08-20 00:00:00 Outpatient TONI HENRY BRITTANY BEARD [id number] Brittany [facility] 2023-08-12 00:00:00 2023-08-12 00:00:00 Outpatient CARL, TONI BRITTANY BEARD [id number] Brittany [facility] 2023-06-09 00:00:00 2023-06-09 00:00:00 Outpatient [id number] [facility]:00 2023-06-02 00:00:00 Outpatient CARL, TONI BEARD BRITTANY [id number] Brittany [facility] 2023-06-01 08:45:00 2023-06-01 08:45:00 Outpatient LABKiah BEARD BRITTANY [id number] Brittany [facility] 2023-06-01 08:00:00 2023-06-01 08:00:00 Outpatient TONI HENRY BRITTANY BEARD [id number] Brittany [facility] 2023-05-31 08:30:00 2023-05-31 08:30:00 Outpatient TONI HENRY BRITTANY BEARD [id number] Brittany [facility] 2023-05-10 00:00:00 2023-05-10 00:00:00 Outpatient TONI HENRY BRITTANY [facility] [id number] [facility] 2023-04-28 09:15:00 2023-04-28 09:15:00 Outpatient LAB90 BRITTANY [facility]ARD [id number] [facility] 2023-04-28 08:30:00 2023-04-28 08:30:00 Outpatient TONI HENRY BRITTANY [id number] [facility] 2023-04-08 00:00:00 2023-04-08 00:00:00 Outpatient TONI HENRY BRITTANY [id number] [facility] 2023-04-08 00:00:00 2023-04-08 00:00:00 Outpatient MARLO DAN BRITTANY [id number] Brittany [facility] 2023-03-18 10:00:00 2023-03-18 10:00:00 Outpatient TONI HENRY BRITTANY [id number] [facility] 2023-03-09 00:00:00 2023-03-09 00:00:00 Outpatient TONI HENRY BRITTANY [id number] Brittany [facility] 2023-03-08 11:10:00 2023-03-08 11:10:00 Outpatient LABKiah CHENEYERNESTO [id number] [facility] 10:00:00 2023-03-08 10:00:00 Outpatient TONI HENRY BRITTANY [id number] Brittany [facility] 2023-03-04 16:30:00 2023-03-04 16:30:00 Outpatient TONI HENRY BRITTANY [id number] Brittany [facility] 2023-03-04 14:30:00 2023-03-04 14:30:00 Outpatient TONI HENRY BRITTANY BEARD [id number] [facility] Notes Date/Time Note Provider Source 2024-11-15 08:46:34 Chief Complaint Patient presents with Diabetes 3 month follow up REFILLS-NURSE/MD Medication refill Corine Vines MA T [facility]
[2025-05-05] MEDS ORDERED: FAMOTIDINE 20 MG/2 ML VIAL IV ONE (21:47)
[2025-05-05] MEDS ORDERED: ONDANSETRON 4 MG/2 ML VIAL ONE ×2 (21:47→21:57)
[2025-05-05] MEDS ORDERED: MECLIZINE HCL 12.5 MG TAB ONE (21:47)
[2025-05-05] MEDS ORDERED: NA CHLORIDE 0.9% 1,000 ML ONE (21:48)
[2025-05-05 21:57] LABS: Absolute Lymphocytes (CBC) 2.5 K/uL (0.7-4.9); Hematocrit 44.0 % (39.6-49.0); Hemoglobin 15.0 g/dL (13.6-17.9); MCH 30.0 pg (27.0-35.0); MCHC 34.0 g/dL (32.0-36.0); MCV 88.3 fL (80-100); MPV 9.4 fL (7.6-11.3); Nucleated RBC Absolute Count 0.0 (0-0); Nucleated Red Blood Cells % 0.1 % (0-0); RBC Red Blood Cell Count 4.99 M/uL (4.33-5.43); White Blood Count 8.70 thou/uL (4.3-10.9)
[2025-05-05 21:58] LABS: PT Prothrombin Time 12.0 SECONDS (10-13.0); Protime INR 1.06
[2025-05-05 22:09] LABS: ALT/SGPT 25.0 U/L (16-61); AST/SGOT 12.0 U/L (15-37); Albumin 3.5 g/dL (3.4-5.0); Albumin/Globulin Ratio 0.9 (1.1-1.8); Alkaline Phosphatase 57.0 U/L (45-117); Anion Gap 10.5 mEq/L (5.0-15.0); BUN Blood Urea Nitrogen 16.0 mg/dL (7-18); Bilirubin Indirect, Calculated 0.5 mg/dL (0.2-0.8); Globulin 4.0 g/dL (2.3-3.5); Glucose Level 250.0 mg/dL (74-106); Magnesium 1.5 mg/dL (1.6-2.4); NT PRO-BNP 40.0 pg/mL (<125); Potassium 3.5 mEq/L (3.5-5.1); Troponin High Sensitivity 4.3 pg/mL (<58.9)
[2025-05-05] MEDS ORDERED: Magnesium Sulfate 2gm IVPB 2 G/50 ML BAG IV ONE (23:49)
--- NOTE | 2025-05-05 23:57 | RAD REPORT ---
EXAM: CT Head Brain Wo Cont HISTORY: DIZZINESS COMPARISON: None TECHNIQUE: Multiple contiguous axial images were obtained for a CT of the brain without contrast. Sag ittal and coronal reformats were performed. One or more of the following dose reduction techniques were used: Automated exposure control, adjus tment of the mA and kV according to patient size, and iterative reconstruction. Unless otherwise specified, incidental findings do not require dedicated imaging follow-up. FINDINGS: No evidence of hydrocephalus, intracranial hemorrhage, or extra-axial fluid collection. The brain is normal in morphology. The calvarium is intact. The visualized paranasal sinuses and mastoid air cells are essentially clear . IMPRESSION: No evidence of acute intracranial abnormality.
--- NOTE | 2025-05-05 23:58 | RAD REPORT ---
EXAMINATION: ONE VIEW CHEST XR CLINICAL INDICATION: Male, 49 years old.,COUGH TECHNIQUE: Frontal chest projection is submitted. Examination is limited by patient positioning and t echnique. COMPARISON: 02/03/2024 FINDINGS: The lungs are well inflated and clear. No pneumothorax or sizable effusion. The heart is normal in s ize. Mediastinal contours are unremarkable. IMPRESSION: No acute intrathoracic abnormalities.
[2025-05-06 00:10] LABS: Sqamous Epithelial <5 /HPF (None Seen); Urine Culture Reflex Order NOT NEEDED; Urine Microscopic Reflex YN ORDER UMIC
[2025-05-06] MEDS ORDERED: NA CHLORIDE 0.9% 1,000 ML ONE (00:10)
[2025-05-06] MEDS ORDERED: PROMETHAZINE INJ 25 MG/ML AMP ONE (00:10)
[2025-05-06] MEDS ORDERED: CIPROFLOXACIN 400mg IV 400 MG/200 ML BAG IV ONE (00:56)
--- NOTE | 2025-05-06 01:00 | RAD REPORT ---
EXAM: CT ABDOMEN AND PELVIS WITH CONTRAST DATE: 05/05/2025 9:15 PM CDT INDICATION: Abd Pain COMPARISON: 12/08/2024 TECHNIQUE: Volumetric CT acquisition of the abdomen and pelvis after the intravenous administration c ontrast. Axial, coronal and sagittal reconstructions. CT Radiation Dose DLP 1793 mGy-cm Postcontrast phases: Venous AEC, mA/kV adjustment by patient size, and/or iterative reconstruction technique were used, per [facility] dose-optimization program. FINDINGS: Lines and tubes: None. Lower thorax: Unremarkable. Liver and biliary tree: Normal. Gallbladder: Contracted. Pancreas: Normal. Spleen: Normal. Adrenals: Normal. Kidneys and ureters: Normal. No hydronephrosis. Bladder: Decompressed. Reproductive organs: Unremarkable. Gastrointestinal tract: Unremarkable with normal caliber. Small amount of liquid stool throughout the colon. Appendix: Normal. Peritoneum and retroperitoneum: No ascites or free air. Lymph nodes: No pathologic lymphadenopathy. Vasculature: Mild atherosclerotic disease. Bones: No acute abnormality. Mild multilevel degenerative changes. Prominent posterior disc osteophyt e complex at L2-L3. Soft tissues: Unremarkable. IMPRESSION: Mild enterocolitis. Electronically signed by: Noemi Liriano MD 05/06/2025 12:52 AM CDT 838 Due to temporary technical issues with the PACS/Kiwig[employer] reporting system, reports are being ronaldo d by the in-house radiologist without review as a courtesy to ensure prompt reporting the interpreting radiologist is fully responsible for the content of the report. Transcribed Date/Time: 05/06/2025 1:00 AM
--- NOTE | 2025-05-06 01:25 | EDPHYS ---
[facility] Name: Jose Carlos Trammell Age: 49 yrs Sex: Male : 1975 Arrival Date: 05/05/2025 Time: 20:52 Bed 2 Private MD: ED Physician Wilbert Hernandez HPI: 05/06 00:08 This 49 yrs old Male presents to ER via Ambulatory with complaints of emilia Dizziness, Vomiting. 00:08 The patient presents with dizziness, generalized weakness, lightheadedness. Onset: The emilia symptoms/episode began/occurred 2 day(s) ago. Context: occurred at home. Modifying factors: The symptoms are alleviated by. Associated signs and symptoms: The patient has no apparent associated signs or symptoms. Severity of symptoms: At their worst the symptoms were moderate in the emergency department the symptoms are unchanged. Patient's baseline: Neuro: alert and fully oriented. The patient has experienced similar episodes in the past, multiple times. Historical: - Allergies: 05/05 21:09 No Known Allergies; bm8 - Home Meds: 21:09 metformin 1 Oral tab 1 tab 2 times per day [Active]; Ozempic subcutaneous [Active]; bm8 - PMHx: 21:09 Diabetes - NIDDM; bm8 - PSHx: 21:09 None; bm8 - Immunization history:: Adult Immunizations up to date. - Infectious Disease History:: Denies. - Social history:: Smoking status: Patient/guardian denies using tobacco, the patient reports quitting approximately 2 years ago, Patient/guardian denies using alcohol, street drugs. - Family history:: not pertinent. ROS: 05/06 00:08 Constitutional: Negative for fever, chills, and weight loss, Eyes: Negative for injury, emilia pain, redness, and discharge, ENT: Negative for injury, pain, and discharge, Neck: Negative for injury, pain, and swelling, Cardiovascular: Negative for chest pain, palpitations, and edema, Respiratory: Negative for shortness of breath, cough, wheezing, and pleuritic chest pain, Abdomen/GI: Negative for abdominal pain, nausea, vomiting, diarrhea, and constipation, Back: Negative for injury and pain, : Negative for injury, bleeding, discharge, and swelling, MS/Extremity: Negative for injury and deformity, Skin: Negative for injury, rash, and discoloration, Neuro: Negative for headache, weakness, numbness, tingling, and seizure, Psych: Negative for depression, anxiety, suicide ideation, homicidal ideation, and hallucinations, Allergy/Immunology: Negative for hives, rash, and allergies, Endocrine: Negative for neck swelling, polydipsia, polyuria, polyphagia, and marked weight changes, Hematologic/Lymphatic: Negative for swollen nodes, abnormal bleeding, and unusual bruising, Abdomen/GI: Negative for nausea and vomiting, diarrhea, abdominal cramps, Exam: 00:00 ECG was reviewed by the Attending Physician. emilia 00:08 Constitutional: This is a well developed, well nourished patient who is awake, alert, emilia and in no acute distress. Head/Face: Normocephalic, atraumatic. Eyes: Pupils equal round and reactive to light, extra-ocular motions intact. Lids and lashes normal. Conjunctiva and sclera are non-icteric and not injected. Cornea within normal limits. Periorbital areas with no swelling, redness, or edema. ENT: Nares patent. No nasal discharge, no septal abnormalities noted. Tympanic membranes are normal and external auditory canals are clear. Oropharynx with no redness, swelling, or masses, exudates, or evidence of obstruction, uvula midline. Mucous membranes moist. Neck: Trachea midline, no thyromegaly or masses palpated, and no cervical lymphadenopathy. Supple, full range of motion without nuchal rigidity, or vertebral point tenderness. No Meningismus. Chest/axilla: Normal chest wall appearance and motion. Nontender with no deformity. No lesions are appreciated. Cardiovascular: Regular rate and rhythm with a normal S1 and S2. No gallops, murmurs, or rubs. Normal PMI, no JVD. No pulse deficits. Respiratory: Lungs have equal breath sounds bilaterally, clear to auscultation and percussion. No rales, rhonchi or wheezes noted. No increased work of breathing, no retractions or nasal flaring. Abdomen/GI: Soft, non-tender, with normal bowel sounds. No distension or tympany. No guarding or rebound. No evidence of tenderness throughout. Back: No spinal tenderness. No costovertebral tenderness. Full range of motion. Male : Normal genitalia with no discharge or lesions. Skin: Warm, dry with normal turgor. Normal color with no rashes, no lesions, and no evidence of cellulitis. MS/ Extremity: Pulses equal, no cyanosis. Neurovascular intact. Full, normal range of motion., bilateral aka Neuro: Awake and alert, GCS 15, oriented to person, place, time, and situation. Cranial nerves II-XII grossly intact. Motor strength 5/5 in all extremities. Sensory grossly intact. Cerebellar exam normal. Normal gait. Psych: Awake, alert, with orientation to person, place and time. Behavior, mood, and affect are within normal limits. Vital Signs: 05/05 21:06 BP 131 / 77; Pulse 83; Resp 17; Temp 97.8; Pulse Ox 99% ; Weight 108.86 kg; Height 5 bm8 ft. 11 in. ; Pain 05/04; 22:13 BP 135 / 80; Pulse 82; Resp 18; Pulse Ox 99% ; cp4 23:59 BP 143 / 89; Pulse 99; Resp 18; Pulse Ox 99% ; cp4 05/06 00:53 BP 141 / 86; Pulse 76; Resp 18; Pulse Ox 96% ; cp4 01:15 BP 154 / 87; Pulse 80; Resp 18; Pulse Ox 96% ; vc1 02:30 BP 145 / 82; Pulse 82; Resp 18; Pulse Ox 97% ; cp4 03:28 BP 140 / 84; Pulse 81; Resp 18; Pulse Ox 97% ; cp4 04:12 BP 140 / 81; Pulse 77; Resp 18; Pulse Ox 97% ; cp4 05/05 21:06 Body Mass Index 33.47 (108.86 kg, 180.34 cm) bm8 05/05 21:06 Pain Scale: Adult bm8 MDM: 05/05 21:07 Medical Screening Exam initiated emilia 05/06 00:10 Differential diagnosis: cardiac arrhythmia, CVA, generalized weakness, GI bleed, emilia hypovolemia, idiopathic dizziness, near-syncope, TIA. Data reviewed: vital signs, nurses notes, lab test result(s), EKG, radiologic studies, CT scan, plain films. Consideration of Admission/Observation Escalation of care including admission/observation considered. I considered the following discharge prescriptions or medication management in the emergency department Medications were administered in the Emergency Department. See MAR. Independent interpretation of the following test(s) in the Emergency Department EKG: See my EKG interpretation above. Test considered but Not performed: Ultrasound no abd usg. Historians other than the Patient: Spouse/Significant Other: well informed. Care significantly affected by the following chronic conditions: Diabetes, Obesity. 05/05 21:09 Order name: Basic Metabolic Panel; Complete Time: 23:42 [facility] 05/05 21:09 Order name: CBC with Diff; Complete Time: 23:42 [facility] 05/05 21:09 Order name: LFT's; Complete Time: 23:42 [facility] 05/05 21: Order name: Magnesium; Complete Time: 23:42 [facility] 05/05 21:09 Order name: NT PRO-BNP; Complete Time: 23:42 [facility] 05/05 21:09 Order name: PT-INR; Complete Time: 23:42 [facility] 05/05 21: Order name: Troponin HS; Complete Time: 23:42 [facility] 05/05 21:15 Order name: Lipase; Complete Time: 23:42 [facility] 05/05 21:15 Order name: UA Rfx Juan Miguel Cult if indicated; Complete Time: 00:18 [facility] 05/05 21:09 Order name: XRAY Chest (1 view); Complete Time: 00:03 [facility] 05/05 21:09 Order name: CT Head Brain wo Cont; Complete Time: 00:03 [facility] 05/05 21:15 Order name: CT Abd/Pelvis - IV Contrast Only [facility] 05/05 21:09 Order name: Cardiac monitoring; Complete Time: 21:56 [facility] 05/05 21:09 Order name: EKG - Nurse/Tech; Complete Time: 21:59 [facility] 05/05 21:09 Order name: IV Saline Lock; Complete Time: 21:56 [facility] 05/05 21:09 Order name: Labs collected and sent; Complete Time: 21:56 [facility] 05/05 21:09 Order name: O2 Per Protocol; Complete Time: 21:56 [facility] 05/05 21:09 Order name: O2 Sat Monitoring; Complete Time: 21:56 [facility] EC:00 Rate is 76 beats/min. Rhythm is regular. QRS [place] is Normal. ID interval is normal. QRS emilia interval is normal. QT interval is normal. No Q waves. T waves are Normal. No ST changes noted. Clinical impression: NSR w/ Non-specific ST/T Changes and No evidence of ischemia. Interpreted by me. Reviewed by me. Administered Medications: 05/05 21:55 Drug: NS 0.9% IV 1000 ml IV at 1000 ml once; to be given as a bolus over 60 minutes cp4 Route: IV; Rate: 1000 ml; Site: right antecubital; 23:48 Follow up: IV Status: Completed infusion cp4 21:55 Drug: Ondansetron IVP 8 mg IVP once; over 2 minutes Route: IVP; Site: right antecubital;cp4 23:48 Follow up: Response: No adverse reaction; Nausea is decreased cp4 21:55 Drug: Meclizine PO 50 mg PO once Route: PO; cp4 23:48 Follow up: Response: No adverse reaction cp4 21:55 Drug: Famotidine IVP 20 mg IVP once; dilute with 10 mL 0.9% NaCl; give over 2 minutes cp4 Route: IVP; Site: right antecubital; 23:48 Follow up: Response: No adverse reaction cp4 23:59 Drug: Magnesium Sulfate IVPB 2 grams IVPB once over 2 hrs Route: IVPB; Infused Over: 2 cp4 hrs; Site: right antecubital; 05/06 01:35 Follow up: Response: No adverse reaction; IV Status: Completed infusion cp4 00:08 Drug: NS 0.9% IV 1000 ml IV at 1000 ml once; to be given as a bolus over 60 minutes cp4 Route: IV; Rate: 1000 ml; Site: right antecubital; 03:25 Follow up: IV Status: Completed infusion cp4 00:31 Drug: Promethazine IM 25 mg IM once Route: IM; Site: right deltoid; vc1 00:59 Follow up: Response: No adverse reaction; Nausea is decreased cp4 00:59 Drug: Ciprofloxacin IVPB 400 mg 200 ml IVPB once over 60 mins Volume: 200 ml; Route: cp4 IVPB; Infused Over: 60 mins; Site: right antecubital; 02:02 Follow up: Response: No adverse reaction; IV Status: Completed infusion cp4 01:44 Drug: metroNIDAZOLE IVPB 500 mg 100 ml IVPB at 200 ml/hr once over 30 mins Volume: 100 vc1 ml; Route: IVPB; Rate: 200 ml/hr; Infused Over: 30 mins; Site: right antecubital; 02:51 Follow up: IV Status: Completed infusion cp4 02:51 Drug: metoCLOPramide IVP 10 mg IVP once; over 1 to 2 minutes Route: IVP; Site: right cp4 antecubital; 03:25 Follow up: Response: No adverse reaction; Nausea is decreased cp4 Disposition Summary: 05/06/25 02:23 Hospitalization Ordered Notes: Hospitalization Status: Observation emilia Provider: Nanci Estes cha Location: Telemetry/MedSurg (observation)(05/06/25 02:23) emilia Condition: Fair(05/06/25 02:23) emilia Problem: new(05/06/25 02:23) emilia Symptoms: have improved(05/06/25 02:23) emilia Bed/Room Type: Standard emilia Room Assignment: 222(05/06/25 03:06) rv1 Diagnosis - Vomiting emilia - Diarrhea, unspecified(05/06/25 02:23) emilia - Abdominal tenderness emilia - Other specified noninfective gastroenteritis and colitis emilia - Type 2 diabetes mellitus with hyperglycemia emilia - Hypomagnesemia(05/06/25 02:24) emilia Forms: - Medication Reconciliation Form emilia - SBAR form emilia - Leadership Thank You Letter emilia Signatures: Dispatcher [employer] EDMS Wilbert Hernandez MD MD cha Calcote, Vanessa, RN RN vc1 Corina Fernandez rv1 Heaven Saenz cp4 Jaspreet Nava, RN RN bm8 Corrections: (The following items were deleted from the chart) 05/05 21:10 21:10 BASIC METABOLIC PANEL+C.LAB.BRZ ordered. EDMS EDMS 21:10 21:10 CBC+H.LAB.BRZ ordered. EDMS EDMS 21:10 21:10 HEPATIC FUNCTION+C.LAB.BRZ ordered. EDMS EDMS 21:10 21:10 MAGNESIUM+C.LAB.BRZ ordered. EDMS EDMS 21:10 21:10 PROBNP+C.LAB.BRZ ordered. EDMS EDMS 21:10 21:10 PROTIME (+INR)+COAG.LAB.BRZ ordered. EDMS EDMS 21:10 21:10 Troponin High Sensitivity+C.LAB.BRZ ordered. EDMS EDMS 21:10 21:10 Chest Single View+RAD.RAD.BRZ ordered. EDMS EDMS 21:10 21:10 Head Brain Wo Cont+CT.RAD.BRZ ordered. EDMS EDMS 21:10 21:09 PSHx: None; bm8 bm8 05/06 02:21 01:25 Home [facility] : 01:25 new [facility] : 01:25 have improved [facility] 01:25 Stable [facility] : 01:25 Dizziness and giddiness [facility] : 01:25 Dehydration [facility] : 01:25 Hypomagnesemia [facility] : 01:25 Nausea with vomiting, unspecified [facility] 01:25 Diarrhea, unspecified [facility] 01:25 Noninfective gastroenteritis and colitis, unspecified [facility] 03:06 02:23 emilia rv1
--- NOTE | 2025-05-06 01:25 | ER ---
Nurse's Notes [facility] Name: Jose Carlos Trammell Age: 49 yrs Sex: Male : 1975 Arrival Date: 05/05/2025 Time: 20:52 Bed 2 Private MD: Diagnosis: Vomiting;Diarrhea, unspecified;Abdominal tenderness;Other specified noninfective gastroenteritis and colitis;Type 2 diabetes mellitus with hyperglycemia;Hypomagnesemia Presentation: 05/05 21:06 Chief complaint: Patient states: I was here a couple of days ago with N/V/and ABD pain, bm8 I was given Zofran as a prescription but that s making me dizzy and its not helping with the nausea and vomiting. Coronavirus screen: Vaccine status: Patient reports being unvaccinated. At this time, the client does not indicate any symptoms associated with coronavirus-19. Ebola Screen: Patient negative for fever greater than or equal to 101.5 degrees Fahrenheit, and additional compatible Ebola Virus Disease symptoms Patient denies exposure to infectious person. Patient denies travel to an Ebola-affected area in the 21 days before illness onset. No symptoms or risks identified at this time. Initial Sepsis Screen: Does the patient meet any 2 criteria? No. Patient's initial sepsis screen is negative. Does the patient have a suspected source of infection? No. Patient's initial sepsis screen is negative. Risk Assessment: Do you want to hurt yourself or someone else? Patient reports no desire to harm self or others. Onset of symptoms was May 01, 2025. 21:06 Method Of Arrival: Ambulatory bm8 21:06 Acuity: EDILMA 3 bm8 Triage Assessment: 21:09 General: Appears in no apparent distress. uncomfortable, Behavior is. Pain: Complains bm8 of pain in epigastric area, right upper quadrant and left upper quadrant Pain currently is 10 out of 10 on a pain scale. Quality of pain is described as aching, crampy. EENT: No deficits noted. No signs and/or symptoms were reported regarding the EENT system. Neuro: No deficits noted. Level of Consciousness is awake, alert, obeys commands, Oriented to person, place, time, situation, Appropriate for age. Neuro: Reports dizziness. Cardiovascular: Denies chest pain, Capillary refill < 3 seconds in bilateral fingers Patient's skin is warm and dry. Respiratory: Airway is patent. Respiratory: Airway is patent Trachea midline Respiratory effort is even, unlabored, Respiratory pattern is regular, symmetrical. GI: Abdomen is flat, non-distended, Bowel sounds present X 4 quads. Abdomen is tender to palpation in right upper quadrant and left upper quadrant Reports upper abdominal pain, nausea, Pain is 10 out of 10 on a pain scale. vomiting. : No signs and/or symptoms were reported regarding the genitourinary system. Derm: No signs and/or symptoms reported regarding the dermatologic system. Musculoskeletal: No signs and/or symptoms reported regarding the musculoskeletal system. Historical: - Allergies: 21:09 No Known Allergies; bm8 - Home Meds: 21: metformin 1 Oral tab 1 tab 2 times per day [Active]; Ozempic subcutaneous [Active]; bm8 - PMHx: 21:09 Diabetes - NIDDM; bm8 - PSHx: 21:09 None; bm8 - Immunization history:: Adult Immunizations up to date. - Infectious Disease History:: Denies. - Social history:: Smoking status: Patient/guardian denies using tobacco, the patient reports quitting approximately 2 years ago, Patient/guardian denies using alcohol, street drugs. - Family history:: not pertinent. Screenin:54 [facility] ED Fall Risk Assessment (Adult) History of falling in the last 3 months, cp4 including since admission No falls in past 3 months (0 pts) Confusion or Disorientation No (0 pts) Intoxicated or Sedated No (0 pts) Impaired Gait No (0 pts) Mobility Assist Device Used No (0 pt) Altered Elimination No (0 pt) Score/Fall Risk Level 0 - 2 = Low Risk Oriented to surroundings, Maintained a safe environment, Assessed \T\ reinforced patient's understanding of fall precautions, Hourly rounding (assess needs \T\ fall precautionary measures) done. Abuse screen: Denies threats or abuse. Denies injuries from another. Nutritional screening: No deficits noted. Tuberculosis screening: No symptoms or risk factors identified. Never had TB. Assessment: 21:11 Reassessment: see triage assessment. 8 05/06 00:00 Reassessment: Patient and/or family updated on plan of care and expected duration. Pain vc1 level reassessed. Patient is alert, oriented x 3, equal unlabored respirations, skin warm/dry/pink. General: Appears in no apparent distress. uncomfortable, Behavior is calm, cooperative, appropriate for age. Neuro: Level of Consciousness is awake, alert, obeys commands, Oriented to person, place, time, situation, Appropriate for age. Cardiovascular: Heart tones S1 S2 present Capillary refill < 3 seconds Patient's skin is warm and dry. Respiratory: Airway is patent Respiratory effort is even, unlabored, Respiratory pattern is regular, symmetrical, Breath sounds are clear bilaterally. GI: Abdomen is round non-distended, Reports lower abdominal pain, diarrhea, nausea. : No deficits noted. No signs and/or symptoms were reported regarding the genitourinary system. EENT: No deficits noted. No signs and/or symptoms were reported regarding the EENT system. Derm: Skin is intact, is healthy with good turgor, Skin is dry, Skin is normal, Skin temperature is warm. Musculoskeletal: Circulation, motion, and sensation intact. Range of motion: intact in all extremities. 01:15 Reassessment: Patient appears in no apparent distress at this time. Patient and/or vc1 family updated on plan of care and expected duration. Pain level reassessed. Patient is alert, oriented x 3, equal unlabored respirations, skin warm/dry/pink. Patient states symptoms have improved. 01:34 Reassessment: Dispo pending IV antibiotics. cp4 02:30 Reassessment: Patient appears in no apparent distress at this time. Patient and/or cp4 family updated on plan of care and expected duration. Pain level reassessed. Patient is alert, oriented x 3, equal unlabored respirations, skin warm/dry/pink. 03:29 Reassessment: Patient appears in no apparent distress at this time. Patient and/or cp4 family updated on plan of care and expected duration. Pain level reassessed. Patient is alert, oriented x 3, equal unlabored respirations, skin warm/dry/pink. Vital Signs: 05/05 21:06 BP 131 / 77; Pulse 83; Resp 17; Temp 97.8; Pulse Ox 99% ; Weight 108.86 kg; Height 5 bm8 ft. 11 in. ; Pain 10/10; 22:13 BP 135 / 80; Pulse 82; Resp 18; Pulse Ox 99% ; cp4 23:59 BP 143 / 89; Pulse 99; Resp 18; Pulse Ox 99% ; cp4 10/12 00:53 BP 141 / 86; Pulse 76; Resp 18; Pulse Ox 96% ; cp4 01:15 BP 154 / 87; Pulse 80; Resp 18; Pulse Ox 96% ; vc1 02:30 BP 145 / 82; Pulse 82; Resp 18; Pulse Ox 97% ; cp4 03:28 BP 140 / 84; Pulse 81; Resp 18; Pulse Ox 97% ; cp4 04:12 BP 140 / 81; Pulse 77; Resp 18; Pulse Ox 97% ; cp4 05/05 21:06 Body Mass Index 33.47 (108.86 kg, 180.34 cm) bm8 05/05 21:06 Pain Scale: Adult bm8 ED Course: 05/05 20:53 Patient arrived in ED. im 21:07 Wilbert Hernandez MD is Attending Physician. emilia 21:09 Triage completed. bm8 21:09 Arm band placed on right wrist. bm8 21:27 CT Head Brain wo Cont In Process Unspecified. EDMS 21:53 Heaven Saenz is Primary Nurse. cp4 21:54 Bed in low position. Call light in reach. Side rails up X 1. cp4 21:54 No provider procedures requiring assistance completed. Initial lab(s) drawn, by ia, cp sent to lab. Inserted saline lock: 20 gauge in right antecubital area, using aseptic technique. Blood collected. Flushed with 10 mL NS. 21:57 XRAY Chest (1 view) In Process Unspecified. EDMS 22:55 CT Abd/Pelvis - IV Contrast Only In Process Unspecified. EDMS 05/06 01:25 Taina Iverson MD is Referral Physician. [facility] 02:22 Nanci Estes MD is Hospitalizing Provider. emilia 04:12 Provided Education on: admission. cp4 04:12 Patient admitted, IV remains in place. cp4 Administered Medications: 05/05 21:55 Drug: NS 0.9% IV 1000 ml IV at 1000 ml once; to be given as a bolus over 60 minutes cp4 Route: IV; Rate: 1000 ml; Site: right antecubital; 23:48 Follow up: IV Status: Completed infusion cp4 21:55 Drug: Ondansetron IVP 8 mg IVP once; over 2 minutes Route: IVP; Site: right antecubital;cp4 23:48 Follow up: Response: No adverse reaction; Nausea is decreased cp4 21:55 Drug: Meclizine PO 50 mg PO once Route: PO; cp4 23:48 Follow up: Response: No adverse reaction cp4 21:55 Drug: Famotidine IVP 20 mg IVP once; dilute with 10 mL 0.9% NaCl; give over 2 minutes cp4 Route: IVP; Site: right antecubital; 23:48 Follow up: Response: No adverse reaction cp4 23:59 Drug: Magnesium Sulfate IVPB 2 grams IVPB once over 2 hrs Route: IVPB; Infused Over: 2 cp4 hrs; Site: right antecubital; 05/06 01:35 Follow up: Response: No adverse reaction; IV Status: Completed infusion cp4 00:08 Drug: NS 0.9% IV 1000 ml IV at 1000 ml once; to be given as a bolus over 60 minutes cp4 Route: IV; Rate: 1000 ml; Site: right antecubital; 03:25 Follow up: IV Status: Completed infusion cp4 00:31 Drug: Promethazine IM 25 mg IM once Route: IM; Site: right deltoid; vc1 00:59 Follow up: Response: No adverse reaction; Nausea is decreased cp4 00:59 Drug: Ciprofloxacin IVPB 400 mg 200 ml IVPB once over 60 mins Volume: 200 ml; Route: cp4 IVPB; Infused Over: 60 mins; Site: right antecubital; 02:02 Follow up: Response: No adverse reaction; IV Status: Completed infusion cp4 01:44 Drug: metroNIDAZOLE IVPB 500 mg 100 ml IVPB at 200 ml/hr once over 30 mins Volume: 100 vc1 ml; Route: IVPB; Rate: 200 ml/hr; Infused Over: 30 mins; Site: right antecubital; 02:51 Follow up: IV Status: Completed infusion cp4 02:51 Drug: metoCLOPramide IVP 10 mg IVP once; over 1 to 2 minutes Route: IVP; Site: right cp4 antecubital; 03:25 Follow up: Response: No adverse reaction; Nausea is decreased cp4 Medication: 05/05 21:54 VIS not applicable for this client. cp4 Outcome: 05/06 01:25 Discharge ordered by . emilia 02:23 Decision to Hospitalize by Provider. emilia 04:12 Admitted to Med/surg accompanied by tech, via wheelchair, room 222, with chart, cp4 04:12 Condition: stable 04:12 Instructed on the need for admit, 04:30 Patient left the ED. cp4 Signatures: Dispatcher [employer] Wilbert Nixon MD MD cha Calcote, Vanessa, RN RN vc1 Elise Simon Christina cp4 Jaspreet Nava, RN RN bm8 Corrections: (The following items were deleted from the chart) 05/05 21:10 21:09 PSHx: None; bm8 bm8
[2025-05-06] MEDS ORDERED: METRONIDAZOLE 500mg IVPB 500 MG/100 ML BAG IV ONE (01:39)
[2025-05-06] MEDS ORDERED: METOCLOPRAMIDE 10 MG/2mL INJ ONE (02:22)
--- NOTE | 2025-05-06 03:18 | P.HP ---
Certification for Inpatient Patient admitted to: Observation With expected LOS: <2 Midnights Patient will require the following post-hospital care: None Practitioner: I am a practitioner with admitting privileges, knowledge of patient current condition, hospital course, and medical plan of care. Services: Services provided to patient in accordance with Admission requirements found in Title 42 Section 412.3 of the Code of Federal Regulations Patient History Date of Service: 05/06/25 Reason for admission: Enterocolitis History of Present Illness: Patient is a [id number] male, with past medical history of type 2 diabetes mellitus, who presents to the ER complaining of diffuse abdominal pain with associated nausea and vomiting nonbilious, nonbloody content, and diarrhea. Patient states he started having abdominal pain on this week, reported to the ER on , was treated, discharged home on medication which patient cannot remember the names of the medication, states he took some of the medications on Wednesday, states felt much better on Wednesday, states on Wednesday he started having the diffused abdominal pain again with nausea and vomiting nonbilious and nonbloody content, states the abdominal pain on Wednesday was more severe than incident, states had multiple episode of vomiting, and multiple episodes of diarrhea. Describes his abdominal pain as constant, aching, none aggravating factor, with pain scale of 8/10. Patient states his symptoms progressively worsened throughout the day which then prompted him to report to ER. Patient denies associated chest pain or shortness of breath, chills or fever. Course in ER. (1) CT abdomen and pelvis with contrast. Impression: Mild enterocolitis Allergies No Known Allergies Allergy (Verified 05/06/25 04:34) Home Medications: Atorvastatin Calcium [Lipitor*] 10 mg PO BEDTIME 05/06/25 Dulaglutide [Trulicity] 4.5 mg SQ Q7D 05/06/25 Insulin Glargine,Hum.rec.anlog [Basaglar Kwikpen U-100] 25 unit SQ DAILY 05/06/25 Metformin HCl 1,000 mg PO BID 05/06/25 - Past Medical/Surgical History -: Type 2 DM -: Patient states None - Family History Father -: Diabetes Mother -: Diabetes - Social History Smoking Status: Never smoker Alcohol use: No CD- Drugs: No Caffeine use: No Place of Residence: Home Review of Systems 10-point ROS is otherwise unremarkable Gastrointestinal: Nausea, Vomiting, Abdominal Pain, Other (Diarrhea) Physical Examination - Physical Exam General: Alert, In no apparent distress, Oriented x3, Cooperative HEENT: Atraumatic, Normocephalic, PERRLA, Mucous membr. moist/pink, Sclerae nonicteric Neck: Supple, 2+ carotid pulse no bruit, JVD not distended, No Thyromegaly, No LAD, Without JVD or thyroid abnormality Respiratory: Clear to auscultation bilaterally, Normal air movement Cardiovascular: No edema, Normal pulses, Regular rate/rhythm, Normal S1 S2, No gallops, No rubs, No murmurs Capillary refill: <2 Seconds Gastrointestinal: Normal bowel sounds, Soft and benign, Non-distended, W/out hepatomegaly, W/out splenomegaly, No ascites, No masses, No rebound, No guarding, Tenderness Musculoskeletal: No clubbing, No swelling, No contractures, No erythema, No tenderness, No warmth Integumentary: No rashes, No breakdown, No significant lesion, No tenderness/swelling, No erythema, No warmth, No cyanosis Neurological: Normal gait, Normal speech, Normal strength at 5/5 x4 extr, Normal tone, Sensation intact, Cranial nerves 3-12 intact, Normal reflexes 2+, Normal affect Lymphatics: No axilla or inguinal lymphadenopathy - Studies Laboratory Data (last 24 hrs) 05/05/25 05/05/25 05/05/25 21:42 21:42 21:42 WBC 8.70 Hgb 15.0 Hct 44.0 Plt Count 227 PT 12.0 INR 1.06 Sodium Potassium BUN Creatinine Glucose Magnesium Total Bilirubin AST ALT Alkaline Phosphatase Lipase 31 05/05/25 21:42 WBC Hgb Hct Plt Count PT INR Sodium 136 Potassium 3.5 BUN 16 Creatinine 0.76 Glucose 250 H Magnesium 1.5 L Total Bilirubin 0.7 AST 12 L ALT 25 Alkaline Phosphatase 57 Lipase Male Exam - Male Exam Inguinal exam: No hernias Assessment and Plan - Plan Patient reports to ER complaining of worsening diffuse abdominal pain with associated nausea, vomiting and diarrhea. Admitted observation with diagnosis of enterocolitis. (1)Enterocolitis. This is the second time patient has returned to ER within the past 48 hours, and states his symptoms today was more severe than the previous symptoms on . Patient infection numbers are normal, but will be prudent to have patient on intravenous antibiotics at this time. -Metronidazole 500 mg IV every 6 hours. -Cipro 500 mg IV every 12 hours. -Zofran 4 mg IV as needed every 4 hours. -IV NS 125 mL/ hr. -Clear liquid can advance if tolerated. -Order stool for ova and parasites. -Morphine 4 mg as needed every 4 hours. (2)Hypomagnesemia of 1.5. Patient received 2 g magnesium in ER. -Order follow-up magnesium at 11 AM in the morning. (3)Chronic type 2 diabetes mellitus. -Order ACHS with moderate sliding scale coverage. -Held patient metformin at this time, patient received contrast with his CT of the abdomen. (4)Explained entire treatment plan to the patient, solicited questions answered and voiced understanding. Discharge Plan: Home Plan to discharge in: 48 Hours - Advance Directives Does patient have a Living Will: No Does patient have a Durable POA for Healthcare: No - Code Status/Comfort Care Code Status Assessed: Yes Code Status: Full Code Critical Care: No Time Spent Managing Pts Care (In Minutes): 55
[2025-05-06 04:34] VITALS: BMI 33.7
[2025-05-06] MEDS: MORPHINE 4 MG/ML SYR IV PRN (05:56)
[2025-05-06] MEDS: ONDANSETRON 4 MG/2 ML VIAL IV PRN (05:56)
[2025-05-06] MEDS ORDERED: METRONIDAZOLE 500mg IVPB 500 MG/100 ML BAG IV SCH (06:00)
[2025-05-06 06:31] LABS: C.diff Antigen/Toxin Ag neg : Tox neg (NEG : NEG); CDIFF INTERNAL NEG CONTROL White Background (WHITE BKGD); STOOL CONSISTENCY Liquid/Semi-Solid
[2025-05-06] MEDS ORDERED: DULAGLUTIDE 4.5 MG/0.5 ML SQ SCH (06:45)
[2025-05-06] MEDS: FLU (Fluarix) 25-26 (6MOS UP)/PF 45 MCG/0.5 ML Syringe IM ONE (07:15)
[2025-05-06] MEDS: ENOXAPARIN 40 MG/0.4 ML SQ SCH (07:41)
[2025-05-06] MEDS: METRONIDAZOLE 500mg IVPB 500 MG/100 ML BAG IV SCH (07:41)
[2025-05-06] MEDS: METHYLPREDNISOLONE 125 MG INJ IV SCH (07:41)
[2025-05-06] MEDS: METFORMIN HCL 500 MG TAB PO SCH (07:42)
[2025-05-06 08:01] LABS: Anion Gap 6.8 mEq/L (5.0-15.0); BUN Blood Urea Nitrogen 10.0 mg/dL (7-18); Glucose Level 223.0 mg/dL (74-106); Magnesium 1.5 mg/dL (1.6-2.4); Potassium 3.8 mEq/L (3.5-5.1)
[2025-05-06] MEDS: INSULIN REGULAR (HUMAN) 100 UNIT/ML SQ SCH (08:21)
[2025-05-06] MEDS: INSULIN GLARGINE 100 UNIT/ML SQ SCH (08:22)
[2025-05-06] MEDS ORDERED: CIPROFLOXACIN 400mg IV 400 MG/200 ML BAG IV SCH (09:00)
[2025-05-06] MEDS: ATORVASTATIN 10 MG TAB PO SCH (20:16)
[2025-05-07 04:48] VITALS: O2SAT 92
[2025-05-07 08:21] LABS: ALT/SGPT 22.0 U/L (16-61); AST/SGOT 12.0 U/L (15-37); Albumin 2.8 g/dL (3.4-5.0); Albumin/Globulin Ratio 0.8 (1.1-1.8); Alkaline Phosphatase 51.0 U/L (45-117); Anion Gap 8.8 mEq/L (5.0-15.0); BUN Blood Urea Nitrogen 9.0 mg/dL (7-18); Globulin 3.6 g/dL (2.3-3.5); Glucose Level 280.0 mg/dL (74-106); Magnesium 1.6 mg/dL (1.6-2.4); Potassium 3.8 mEq/L (3.5-5.1)
[2025-05-07 09:12] LABS: Absolute Lymphocytes (CBC) 2.6 K/uL (0.7-4.9); Hematocrit 42.8 % (39.6-49.0); Hemoglobin 14.6 g/dL (13.6-17.9); MCH 30.4 pg (27.0-35.0); MCHC 34.2 g/dL (32.0-36.0); MCV 88.9 fL (80-100); MPV 9.2 fL (7.6-11.3); Nucleated RBC Absolute Count 0.0 (0-0); Nucleated Red Blood Cells % 0.1 % (0-0); RBC Red Blood Cell Count 4.82 M/uL (4.33-5.43); White Blood Count 10.10 thou/uL (4.3-10.9)
[2025-05-07 09:35] VITALS: BP 101/58; TEMP 97.9
[2025-05-07 11:04] LABS: ALT/SGPT 21 U/L (16-61); Albumin 2.9 g/dL (3.4-5.0); Albumin/Globulin Ratio 0.8 (1.1-1.8); Alkaline Phosphatase 54 U/L (45-117); Anion Gap 8.9 mEq/L (5.0-15.0); BUN Blood Urea Nitrogen 9 mg/dL (7-18); Globulin 3.5 g/dL (2.3-3.5); Glucose Level 285 mg/dL (74-106); Magnesium 1.6 mg/dL (1.6-2.4); Potassium 3.9 mEq/L (3.5-5.1)
[2025-05-07 11:10] LABS: AST/SGOT < 10 U/L (15-37)
== END 2025-05-07 11:55 | disposition home or self-care (01) ==
LOC: ER 20:52 → ERHOLD 05-06 02:58 → 2ND 05-06 03:33
PROVIDERS: ADMIT Hospitalist; ATTEND Hospitalist
DX: K52.9 Noninfective gastroenteritis and colitis, unspecified (principal); R10.9 Unspecified abdominal pain; R11.2 Nausea with vomiting, unspecified; E83.42 Hypomagnesemia; E11.65 Type 2 diabetes mellitus with hyperglycemia
CPT/HCPCS: 96365; 96367; 96361; 93005; 85025 ×2; 81001; 80048 ×2; 36415 ×2; 83735 ×4; 84100; 85610; 82947 ×6; 80076; 87324; 84484; 83690; 80053 ×2; 83880; 70450; 74177; 71045; 96375; 96372; 99285; Q9967 ×2; J2550; J8597; J3475; J2765; J1650 ×2; J2919 ×2; J2405 ×3; J0744; J1815 ×4; J7030 ×2; G0378 ×3